=== PATIENT | male | born 1955 | race Caucasian/White ===

== ENCOUNTER 2020-05-01 09:22 | Outpatient (REF) | payer BC, SELFPAY ==
[2020-05-01 11:08] LABS: MANUAL DIFF FLAG NO
[2020-05-01 11:20] LABS: Basophils Absolute Auto 0.1 X10*3/uL (0.0-0.2); Basophils Percent Auto 0.8 % (0-2); Eosinophils Absolute Auto 0.1 X10*3/uL (0.0-0.4); Eosinophils Percent Auto 1.4 % (0-4); Hematocrit 47.2 % (42-52); Imm Gran Abs Auto 0.04 X10*3/uL (0.00-0.03); Imm Gran Pct Auto 0.5 % (0.0-0.4); Lymphocytes Absolute Auto 1.8 X10*3/uL (1.2-4.9); Mean Corpuscular HGB Conc 33.9 g/dl (31.0-36.0); Mean Corpuscular Hemoglobin 29.9 pg (27.0-33.0); Mean Corpuscular Volume 88.2 fL (80-98); Monocytes Absolute Auto 0.5 X10*3/uL (0.1-1.2); Monocytes Percent Auto 5.9 % (2-11); Neutrophils Absolute Auto 5.3 X10*3/uL (2.0-8.3); Neutrophils Percent Auto 68.4 % (45-73); Platelet Count 233 X10*3/uL (160-400); Red Blood Count 5.35 X10*6/uL (4.60-5.80); Red Cell Distribution Width 12.2 % (11.0-16.0); White Blood Count 7.7 X10*3/uL (4.8-10.8)
[2020-05-01 11:48] LABS: Alanine Aminotransferase 48 U/L (0-40); Albumin Level 4.7 g/dL (3.5-5.0); Alkaline Phosphatase 78 U/L (39-117); Anion Gap 17 (12-20); Aspartate Amino Transferase 26 U/L (5-37); Bilirubin Total 1.1 mg/dL (0.0-1.0); Blood Urea Nitrogen 22 mg/dL (9-16); Calcium 9.3 mg/dL (8.4-10.2); Carbon Dioxide 26 mmol/L (22-29); Chloride 103 mmol/L (96-108); Cholesterol 206 mg/dL; Estimated Glomerular Filt Rate > 60; Glucose Fasting 97 mg/dL (60-99); HDL Cholesterol 42 mg/dL; LDL Cholesterol Calculated 114 mg/dl; Potassium 4.2 mmol/L (3.3-5.1); Sodium 142 mmol/L (135-145); Total Protein 7.1 g/dL (6.5-8.0); Triglycerides 251 mg/dL
== END 2020-05-01 09:23 | disposition home or self-care (01) ==
LOC: HO.HMGCLDS 09:22
PROVIDERS: PCP Internal Medicine; Visit Provider Nurse Practitioner
DX: I10 Essential (primary) hypertension (principal); E78.1 Pure hyperglyceridemia
CPT/HCPCS: 36415; 80053; 80061; 85025

== ENCOUNTER 2021-04-24 08:02 | Outpatient (REF) | payer BC, SELFPAY ==
[2021-04-24 11:32] LABS: Appearance Urine CLEAR; Color Urine YELLOW; Glucose Urine UA NEG (NEG); Leukocyte Esterase Urine NEG (NEG); Nitrite Urine NEG (NEG); Specific Gravity - Urine 1.025 (1.005-1.025); Urine Blood NEG (NEG); Urine Ketones NEG (NEG); Urine Protein NEG (NEG-TRACE)
[2021-04-24 11:52] LABS: Alanine Aminotransferase 65 U/L (0-40); Albumin Level 4.5 g/dL (3.5-5.0); Alkaline Phosphatase 74 U/L (39-117); Anion Gap 15 (12-20); Aspartate Amino Transferase 32 U/L (5-37); Bilirubin Total 1.2 mg/dL (0.0-1.0); Blood Urea Nitrogen 17 mg/dL (9-16); Calcium 9.6 mg/dL (8.4-10.2); Carbon Dioxide 27 mmol/L (22-29); Chloride 103 mmol/L (96-108); Cholesterol 205 mg/dL; Estimated Glomerular Filt Rate > 60; Glucose Fasting 120 mg/dL (60-99); HDL Cholesterol 38 mg/dL; LDL Cholesterol Calculated 139 mg/dl; Potassium 4.7 mmol/L (3.3-5.1); Sodium 140 mmol/L (135-145); Total Protein 7.1 g/dL (6.5-8.0); Triglycerides 143 mg/dL
[2021-04-24 12:10] LABS: Creatinine Urine 199.44 mg/dL; Microalbum/Creatinine Ratio Ur 5.5 ug/mg cr
[2021-04-24 12:15] LABS: TSH reflex Free T4 1.37 uIU/mL (0.32-4.0)
[2021-04-24 12:19] LABS: Prostate Specific Antigen Scr 2.95 ng/mL (<0.05-4.0)
== END 2021-04-24 08:03 | disposition home or self-care (01) ==
LOC: HO.HMGCLDS 08:02
PROVIDERS: PCP Family Medicine; Visit Provider Family Medicine
DX: Z00.00 Encounter for general adult medical examination without abnormal findings (principal); I10 Essential (primary) hypertension; Z12.5 Encounter for screening for malignant neoplasm of prostate
CPT/HCPCS: 36415; 80053; 80061; 81003; 82043; 84153; 84443

== ENCOUNTER 2021-05-14 12:50 | Outpatient (REF) | payer BC, SELFPAY ==
[2021-05-14 13:35] LABS: MANUAL DIFF FLAG NO
[2021-05-14 13:40] LABS: Basophils Absolute Auto 0.1 X10*3/uL (0.0-0.2); Basophils Percent Auto 0.7 % (0-2); Eosinophils Absolute Auto 0.2 X10*3/uL (0.0-0.4); Eosinophils Percent Auto 2.4 % (0-4); Hematocrit 47.7 % (42.0-52.0); Hemoglobin 15.4 g/dl (14.0-18.0); Imm Gran Abs Auto 0.04 X10*3/uL (0.00-0.03); Imm Gran Pct Auto 0.5 % (0.0-0.4); Lymphocytes Absolute Auto 1.7 X10*3/uL (1.2-4.9); Lymphocytes Percent Auto 20.7 % (20-40); Mean Corpuscular HGB Conc 32.3 g/dl (31.0-36.0); Mean Corpuscular Hemoglobin 29.2 pg (27.0-33.0); Mean Corpuscular Volume 90.3 fL (80.0-98.0); Mean Platelet Volume 9.7 fL (9.4-12.4); Monocytes Absolute Auto 0.6 X10*3/uL (0.1-1.2); Monocytes Percent Auto 7.4 % (2-11); Neutrophils Absolute Auto 5.7 x10*3/uL (2.0-8.3); Neutrophils Percent Auto 68.3 % (45-73); Platelet Count 280 X10*3/uL (160-400); Red Blood Count 5.28 X10*6/uL (4.60-5.80); Red Cell Distribution Width 11.9 % (11.0-16.0); White Blood Count 8.4 X10*3/uL (4.8-10.8)
[2021-05-14 14:19] LABS: Uric Acid 9.2 mg/dL (3.4-7.0)
== END 2021-05-14 12:51 | disposition home or self-care (01) ==
LOC: HO.WFDLDS 12:50
PROVIDERS: Visit Provider Family Medicine
DX: Z00.00 Encounter for general adult medical examination without abnormal findings (principal); M10.9 Gout, unspecified
CPT/HCPCS: 36415; 84550; 85025

== ENCOUNTER 2021-06-02 07:37 | Outpatient (REF) | payer BC, SELFPAY ==
[2021-06-02 12:09] LABS: Alanine Aminotransferase 51 U/L (0-40); Albumin Level 4.1 g/dL (3.5-5.0); Alkaline Phosphatase 69 U/L (39-117); Aspartate Amino Transferase 24 U/L (5-37); Bilirubin Direct 0.3 mg/dL (0.0-0.5); Bilirubin Total 0.8 mg/dL (0.0-1.0); Total Protein 6.5 g/dL (6.5-8.0); Uric Acid 6.4 mg/dL (3.4-7.0)
== END 2021-06-02 07:38 | disposition home or self-care (01) ==
LOC: HO.HMGCLDS 07:37
PROVIDERS: Visit Provider Family Medicine
DX: M10.9 Gout, unspecified (principal)
CPT/HCPCS: 36415; 80076; 84550

== ENCOUNTER 2021-12-03 09:56 | Outpatient (REF) | payer MEDICARE, SELFPAY ==
[2021-12-03 14:14] LABS: Alanine Aminotransferase 40 U/L (0-40); Albumin Level 4.8 g/dL (3.5-5.0); Alkaline Phosphatase 73 U/L (39-117); Anion Gap 16 (12-20); Aspartate Amino Transferase 23 U/L (5-37); Bilirubin Total 1.1 mg/dL (0.0-1.0); Blood Urea Nitrogen 23 mg/dL (9-16); Carbon Dioxide 24 mmol/L (22-29); Chloride 102 mmol/L (96-108); Estimated Glomerular Filt Rate > 60; Glucose Random 102 mg/dL (60-115); Potassium 4.4 mmol/L (3.3-5.1); Sodium 138 mmol/L (135-145); Total Protein 7.4 g/dL (6.5-8.0); Uric Acid 6.9 mg/dL (3.4-7.0)
== END 2021-12-03 09:57 | disposition home or self-care (01) ==
LOC: HO.WFDLDS 09:56
PROVIDERS: Visit Provider Family Medicine
DX: M10.9 Gout, unspecified (principal); R74.8 Abnormal levels of other serum enzymes
CPT/HCPCS: 36415; 80053; 84550

== ENCOUNTER → 2022-01-27 08:39 | Outpatient (BNVA) | payer MEDICARE, SELFPAY | PROVIDERS: PCP Family Medicine; Visit Provider Student in an Organized Health Care Education/Training Program | DX: M1A.09X0 Idiopathic chronic gout, multiple sites, without tophus (tophi) (principal) | CPT/HCPCS: 99202 ==

== ENCOUNTER 2022-04-08 08:15 | Outpatient (REF) | payer MEDICARE, SELFPAY ==
--- NOTE | ~2022-04-08 | US_ITS ---
EXAMINATION: US RETROPERITONEAL LIMITED (RENAL ONLY) CLINICAL INFORMATION: Essential primary hypertension. COMPARISON: None TECHNIQUE: Routine grayscale imaging of kidneys followed by retroperitoneal ultrasound is performed. FINDINGS: RIGHT KIDNEY: 12.1 x 4.6 x 5.3 cm (SAG x AP x TRV). The kidney is normal in size, contour, and echogenicity. Renal cortical thickness is normal. No calculi or focal parenchymal lesions. No hydronephrosis. LEFT KIDNEY: 13.0 x 6.2 x 6.3 cm (SAG x AP x TRV). The kidney is normal in size, contour, and echogenicity. Renal cortical thickness is normal. No calculi or focal parenchymal lesions. No hydronephrosis. On renal Doppler exam, RIGHT KIDNEY: Renal artery velocity proximal segment measures 142 cm/s, midsegment measures 160 cm/s and distal segment measures 88.6 cm/s. Average segmental resistive index measures 0.77. RAR cannot be obtained due to aortic peak systolic velocity measures greater than 100 cm/s. LEFT KIDNEY: Renal artery velocity proximal segment measures 17.1 cm/s, midsegment measures 121 cm/s and distal segment measures 84.3 cm/s. Average resistive index measures 0.73. RAR cannot be calculated due to peak aortic systolic velocity greater than 100 cm/s. US/US renal doppler IMPRESSION: Normal renal ultrasound. Normal renal Doppler ultrasound. Elevated peak aortic velocity greater then 100 cm/s likely secondary to atherosclerosis.
--- NOTE | ~2022-04-08 | US_ITS ---
EXAMINATION: US RETROPERITONEAL LIMITED (RENAL ONLY) CLINICAL INFORMATION: Essential primary hypertension. COMPARISON: None TECHNIQUE: Routine grayscale imaging of kidneys followed by retroperitoneal ultrasound is performed. FINDINGS: RIGHT KIDNEY: 12.1 x 4.6 x 5.3 cm (SAG x AP x TRV). The kidney is normal in size, contour, and echogenicity. Renal cortical thickness is normal. No calculi or focal parenchymal lesions. No hydronephrosis. LEFT KIDNEY: 13.0 x 6.2 x 6.3 cm (SAG x AP x TRV). The kidney is normal in size, contour, and echogenicity. Renal cortical thickness is normal. No calculi or focal parenchymal lesions. No hydronephrosis. On renal Doppler exam, RIGHT KIDNEY: Renal artery velocity proximal segment measures 142 cm/s, midsegment measures 160 cm/s and distal segment measures 88.6 cm/s. Average segmental resistive index measures 0.77. RAR cannot be obtained due to aortic peak systolic velocity measures greater than 100 cm/s. LEFT KIDNEY: Renal artery velocity proximal segment measures 17.1 cm/s, midsegment measures 121 cm/s and distal segment measures 84.3 cm/s. Average resistive index measures 0.73. RAR cannot be calculated due to peak aortic systolic velocity greater than 100 cm/s. US/US renal BI IMPRESSION: Normal renal ultrasound. Normal renal Doppler ultrasound. Elevated peak aortic velocity greater then 100 cm/s likely secondary to atherosclerosis.
== END 2022-04-08 08:16 | disposition home or self-care (01) ==
LOC: HO.HMGCX 08:15
PROVIDERS: PCP Family Medicine; Visit Provider Family Medicine
DX: I10 Essential (primary) hypertension (principal)
CPT/HCPCS: 76775; 93975

== ENCOUNTER 2022-04-16 07:39 | Outpatient (REF) | payer MEDICARE, SELFPAY ==
[2022-04-16 11:25] LABS: MANUAL DIFF FLAG NO
[2022-04-16 11:34] LABS: Appearance Urine Clear; Color Urine Yellow; Glucose Urine UA Negative (Negative); Leukocyte Esterase Urine Negative (Negative); Nitrite Urine Negative (Negative); PH 5.5 (5.0-9.0); Specific Gravity - Urine 1.025 (1.005-1.025); Urine Blood Negative (Negative); Urine Ketones Negative (Negative); Urine Protein Negative (Neg-Trace)
[2022-04-16 11:58] LABS: Basophils Absolute Auto 0.1 X10*3/uL (0.0-0.2); Basophils Percent Auto 0.8 % (0-2); Eosinophils Absolute Auto 0.2 X10*3/uL (0.0-0.4); Eosinophils Percent Auto 2.3 % (0-4); Hematocrit 44.7 % (42.0-52.0); Imm Gran Abs Auto 0.03 X10*3/uL (0.00-0.03); Imm Gran Pct Auto 0.4 % (0.0-0.4); Lymphocytes Absolute Auto 2.1 X10*3/uL (1.2-4.9); Lymphocytes Percent Auto 28.2 % (20-40); Mean Corpuscular HGB Conc 33.6 g/dl (31.0-36.0); Mean Corpuscular Hemoglobin 30.9 pg (27.0-33.0); Mean Corpuscular Volume 92.2 fL (80.0-98.0); Monocytes Absolute Auto 0.5 X10*3/uL (0.1-1.2); Monocytes Percent Auto 6.8 % (2-11); Neutrophils Absolute Auto 4.6 x10*3/uL (2.0-8.3); Neutrophils Percent Auto 61.5 % (45-73); Platelet Count 226 X10*3/uL (160-400); Red Blood Count 4.85 X10*6/uL (4.60-5.80); Red Cell Distribution Width 12.8 % (11.0-16.0); White Blood Count 7.5 X10*3/uL (4.8-10.8)
[2022-04-16 12:18] LABS: Uric Acid 6.3 mg/dL (3.4-7.0)
[2022-04-16 12:31] LABS: Erythrocyte Sedimentation Rate 2 MM/HR (0-15)
[2022-04-16 12:50] LABS: Alanine Aminotransferase 51 U/L (0-40); Albumin Level 4.4 g/dL (3.5-5.0); Anion Gap 12 (12-20); Aspartate Amino Transferase 29 U/L (5-37); Bilirubin Total 1.1 mg/dL (0.0-1.0); Blood Urea Nitrogen 21 mg/dL (9-16); C Reactive Protein 0.27 mg/dL (< or = 0.50); Calcium 9.5 mg/dL (8.4-10.2); Carbon Dioxide 29 mmol/L (22-29); Chloride 104 mmol/L (96-108); Estimated Glomerular Filt Rate > 60; Glucose Random 114 mg/dL (60-115); Potassium 4.7 mmol/L (3.3-5.1); Sodium 140 mmol/L (135-145); Total Protein 6.4 g/dL (6.5-8.0)
[2022-04-16 12:51] LABS: Alkaline Phosphatase 62 U/L (39-117); Cholesterol 176 mg/dL; HDL Cholesterol 37 mg/dL; LDL Cholesterol Calculated 109 mg/dl; Prostate Specific Antigen Scr 2.88 ng/mL (<0.05-4.0); TSH reflex Free T4 1.39 uIU/mL (0.32-4.0); Triglycerides 151 mg/dL
[2022-04-16 12:52] LABS: Creatinine Urine 174.01 mg/dL; Microalbum/Creatinine Ratio Ur 9.7 ug/mg cr
== END 2022-04-16 07:40 | disposition home or self-care (01) ==
LOC: HO.HMGCLDS 07:39
PROVIDERS: Absent Provider Student in an Organized Health Care Education/Training Program; PCP Family Medicine; Visit Provider Family Medicine
DX: Z00.00 Encounter for general adult medical examination without abnormal findings (principal); I10 Essential (primary) hypertension; M10.9 Gout, unspecified; Z12.5 Encounter for screening for malignant neoplasm of prostate
CPT/HCPCS: 36415; 80053; 80061; 81003; 82043; 84153; 84443; 84550; 85025; 85652; 86140

== ENCOUNTER 2022-04-29 08:03 | Outpatient (REF) | payer MEDICARE, SELFPAY ==
--- NOTE | ~2022-04-29 | XR_ITS ---
EXAMINATION: XR FOOT, RIGHT XR FOOT, LEFT CLINICAL INFORMATION: Gout versus psoriatic arthritis versus osteoarthritis. COMPARISON: Report from right foot radiographs dated 10/04/2005. TECHNIQUE: PA, oblique, and lateral views of the right and left foot. FINDINGS: Right Foot: Mild 1st metatarsophalangeal and hallux sesamoid joint space narrowing with small marginal osteophytes. Mild subchondral cystic change. No significant periarticular erosion. Mild adjacent soft tissue swelling. Tiny soft tissue calcification along the medial aspect of the joint space measuring up to 0.1 cm. No fracture or dislocation. Plantar and dorsal calcaneal spurs. Left Foot: Severe 1st metatarsophalangeal and hallux sesamoid joint space narrowing with bony remodeling, subchondral cystic change, and marginal osteophytes. No significant periarticular erosion. No acute fracture or dislocation. Plantar and dorsal calcaneal spurs. 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 No significant periarticular erosion. Tiny adjacent soft tissue calcification. Gout arthropathy is thought less likely, however, cannot be entirely excluded. LEFT FOOT: Severe 1st metatarsophalangeal and hallux sesamoid degenerative arthritis with bony remodeling. Plantar and dorsal calcaneal spurs. No significant periarticular erosion or soft tissue calcification to suggest gout arthropathy.
--- NOTE | ~2022-04-29 | XR_ITS ---
EXAMINATION: XR FOOT, RIGHT XR FOOT, LEFT CLINICAL INFORMATION: Gout versus psoriatic arthritis versus osteoarthritis. COMPARISON: Report from right foot radiographs dated 10/04/2005. TECHNIQUE: PA, oblique, and lateral views of the right and left foot. FINDINGS: Right Foot: Mild 1st metatarsophalangeal and hallux sesamoid joint space narrowing with small marginal osteophytes. Mild subchondral cystic change. No significant periarticular erosion. Mild adjacent soft tissue swelling. Tiny soft tissue calcification along the medial aspect of the joint space measuring up to 0.1 cm. No fracture or dislocation. Plantar and dorsal calcaneal spurs. Left Foot: Severe 1st metatarsophalangeal and hallux sesamoid joint space narrowing with bony remodeling, subchondral cystic change, and marginal osteophytes. No significant periarticular erosion. No acute fracture or dislocation. Plantar and dorsal calcaneal spurs. 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 No significant periarticular erosion. Tiny adjacent soft tissue calcification. Gout arthropathy is thought less likely, however, cannot be entirely excluded. LEFT FOOT: Severe 1st metatarsophalangeal and hallux sesamoid degenerative arthritis with bony remodeling. Plantar and dorsal calcaneal spurs. No significant periarticular erosion or soft tissue calcification to suggest gout arthropathy.
== END 2022-04-29 08:04 | disposition home or self-care (01) ==
LOC: HO.XRAY 08:03
PROVIDERS: PCP Family Medicine; Visit Provider Student in an Organized Health Care Education/Training Program
DX: M1A.09X0 Idiopathic chronic gout, multiple sites, without tophus (tophi) (principal)
CPT/HCPCS: 73630; 99212

== ENCOUNTER 2022-05-07 06:47 | Day surgery (SDC) | payer MEDICARE, SELFPAY ==
--- NOTE | 2022-05-06 09:24 | HO.ANESPROP2 ---
HPI - Anesthesia Eval Consult details Narrative: 66yo M for Colonoscopy PMFSH Active Problems Active Problems: All Active Problems (Updated 05/06/22 @ 07:38 by Zoraida Lange RN) Laboratory examination ordered as part of a routine general medical examination (Acute) Essential hypertension (Acute) Anxiety (Acute) Neuropathy (Acute) Scoliosis (Acute) Adult general medical exam (Acute) Hypercholesterolemia (Acute) Low HDL (under 40) (Acute) Screening for prostate cancer (Acute) Screening for colon cancer (Acute) Gout (Acute) Immunization counseling (Acute) Elevated liver enzymes (Acute) Elevated fasting glucose (Acute) Sinus congestion (Acute) Polyarthralgia (Acute) Resistant hypertension (Acute) Past Medical History Medical History Anxiety Gout History of neuropathy History of spinal stenosis Hx of sleep apnea Hypertension Kidney stones Psoriasis Surgical History Surgical History H/O ligation of vein History of dental surgery History of penile implant Hx of basal cell carcinoma excision Hx of colonoscopy Hx of lithotripsy Previous back surgery Social History Social History Housing: House Patient Tobacco Use Status: Former Tobacco user Quit Date: 1996 Tobacco use type: Cigarette e-Cigarette/Vaping Use: Never Used Second Hand Smoke Exposure: No Use of substances other than those prescribed or required for medical reasons: No Are you DNR?: No Advance Directives: No Advance Directives Information Provided: Yes service: Yes Current occupational status: employed Current occupational exposures/hazards: No Cognitive needs: No Hearing needs: No Vision needs: No Meds Allergies Allergy/AdvReac Type Severity Reaction Status Date / Time No Known Allergies Allergy Mild NKA Verified 05/07/22 06:59 Home Medications Medication Instructions Recorded Confirmed Last Taken Type omega 0-xda-qap-other omega 3s-D3 ml PO 03/19/21 04/29/22 04/06/22 History 2,200 mg-1,000 unit/5 mL oral liquid multivitamin 1 tab PO DAILY 05/06/22 05/06/22 Unknown History Exam Exam Date and Time: May 06, 2022 0924 Pertinent Lab Results Pertinent Lab Results: Laboratory Tests 04/16/22 04/16/22 07:51 07:51 WBC 7.5 Hgb 15.0 Hct 44.7 Plt Count 226 Sodium 140 Potassium 4.7 Chloride 104 Carbon Dioxide 29 BUN 21 H Creatinine 1.10 Assessment and Plan Assessment Anesthesia Assessment: Chart Reviewed
[2022-05-07 07:01] VITALS: BMI 37.8
[2022-05-07 07:25] VITALS: BP 129/72; PULSE 87; RESP 16; TEMP 36.6; O2SAT 97
[2022-05-07] MEDS: Lactated Ringers 1,000 ML 100 ML IVCONT (07:29)
--- NOTE | 2022-05-07 08:25 | MHC.SHP ---
Pre-Procedural Eval Section A Date of Service: 05/07/22 Section B Chief Complaint: screening Details of Present Illness: see H&P no changes Relevant Family History (Specify if Yes): No Relevant Social History: None Present Medications: see Short Stay Collaborative assessment Medical History: No relevant PMH History of Previous Operations: No relevant previous surgery Allergies: Allergies Allergy/AdvReac Type Severity Reaction Status Date / Time No Known Allergies Allergy Mild NKA Verified 05/07/22 06:59 Review of Systems Sugical H&P ROS: Negative: Constitution, Cardiovascular, Respiratory, Neurological, Psychiatric, Hem-Onc, Allergic/Immunologic, Gastrointestinal, Genitourinary, Musculoskeletal, Integumentary, Endocrine and Eyes/Ears/Nose/Throat Exam Surgical H&P Exam: Normal: HEENT, Normal: Heart, Normal: Lungs, Normal: Extremities, Normal: Abdomen, Normal: Skin and Normal: Neurological Plan Diagnosis/Plan: Unchanged I have reviewed the history and physical and performed a pertinent physical examination on my patient. No changes have occurred unless specified. Time Spent With Patient Time: Total time managing care of this patient today ____ minutes.
--- NOTE | 2022-05-07 09:10 | P.CONAN_ITS ---
[facility] Active Problems Active Problems: All Active Problems (Updated 05/07/22 @ 07:00 by Zoraida Lange RN) Laboratory examination ordered as part of a routine general medical examination (Acute) Essential hypertension (Acute) Anxiety (Acute) Neuropathy (Acute) Scoliosis (Acute) Adult general medical exam (Acute) Hypercholesterolemia (Acute) Low HDL (under 40) (Acute) Screening for prostate cancer (Acute) Screening for colon cancer (Acute) Gout (Acute) Immunization counseling (Acute) Elevated liver enzymes (Acute) Elevated fasting glucose (Acute) Sinus congestion (Acute) Polyarthralgia (Acute) Resistant hypertension (Acute) Past Medical History Medical History Anxiety Gout History of neuropathy History of spinal stenosis Hx of sleep apnea Hypertension Kidney stones Psoriasis Surgical History Surgical History H/O ligation of vein History of dental surgery History of penile implant Hx of basal cell carcinoma excision Hx of colonoscopy Hx of lithotripsy Previous back surgery History of Problems with Anesthesia: No Social History Social History Housing: House Patient Tobacco Use Status: Former Tobacco user Quit Date: 1996 Tobacco use type: Cigarette e-Cigarette/Vaping Use: Never Used Second Hand Smoke Exposure: No Use of substances other than those prescribed or required for medical reasons: No Are you DNR?: No Advance Directives: No Advance Directives Information Provided: Yes service: Yes Current occupational status: employed Current occupational exposures/hazards: No Cognitive needs: No Hearing needs: No Vision needs: No Meds Allergies Allergy/AdvReac Type Severity Reaction Status Date / Time No Known Allergies Allergy Mild NKA Verified 05/07/22 06:59 Active Medications: Current Medications Lactated Ringer's (Lr) 1,000 mls @ 100 mls/hr IVCONT .Q10H AISHWARYA Last Admin: 05/07/22 07:29 Dose: 100 mls/hr Home Medications Medication Instructions Recorded Confirmed Last Taken Type omega 8-dak-fyl-other omega 3s-D3 ml PO 03/19/21 04/29/22 04/06/22 History 2,200 mg-1,000 unit/5 mL oral liquid multivitamin 1 tab PO DAILY 05/06/22 05/06/22 Unknown History Exam Exam Date and Time: May 07, 2022 0910 Height,Weight and Vital Signs: Height 6 ft 2 in Weight 133.81 kg Last Vital Signs Temp 97.8 F 05/07/22 07:25 Pulse 87 05/07/22 07:25 Resp 16 05/07/22 07:25 BP 129/72 05/07/22 07:25 Pulse Ox 97 05/07/22 07:25 O2 Del Method Room Air 05/07/22 07:25 Airway Mallampati Class: III TM Dist: >3cm Neck ROM: Full Heart: RRR Lungs: CTA Assessment and Plan Final Anesthetic Review History of Problems with Anesthesia: No NPO: Yes ASA Class: III Final Preanesthetic Review: Meds/Allgs Chart Reviewed, Consent Obtained/Reviewed and Anes Risks/Benef Reviewed Patient Risk: Low Procedure Risk: Low Anesthetic Plan Anesthetic Plan: MAC: Disposition: Standard PACU
[2022-05-07 09:13] VITALS: BP 96/53; PULSE 84; RESP 20; TEMP 36.2; O2SAT 95
--- NOTE | 2022-05-07 09:19 | P.BOP_ITS ---
Brief Operative Note Date of Service: 05/07/22 Pre-op diagnosis: screening Post-op diagnosis: same Procedure: colonoscopy Surgeon: Vipul Magdaleno Anesthesia: MAC Was an Sanitation Worker Hosing Machinery used for this Procedure?: No Estimated blood loss (mL): 0 Pathology: other Condition: stable Disposition: PACU
--- NOTE | 2022-05-07 09:24 | HO.POSTANES ---
Post Anesthesia Evaluation Post Anesthesia Evaluation Vital Signs: Vital Signs Temp Pulse Resp BP Pulse Ox O2 Del Method 05/07/22 09:13 97.2 F 84 20 96/53 L 95 Room Air 05/07/22 07:25 97.8 F 87 16 129/72 97 Room Air Anesthesia: Monitored Mental Status: Awake Pain Control: Satisfactory Nausea/Vomiting: None Hydration: Adequate Anesthesia-Related Issues: No Anes. Related Issues
[2022-05-07 09:28] VITALS: BP 101/57; PULSE 76; RESP 16; O2SAT 99
[2022-05-07 09:41] VITALS: BP 110/72; PULSE 73; RESP 16; TEMP 36.3; O2SAT 99
--- NOTE | 2022-05-12 08:55 | OP_ITS ---
DATE OF SERVICE: 05/07/2022 SURGEON: Vipul Magdaleno MD INDICATIONS: Colon cancer screening and prior history of colon polyps. PREOPERATIVE DIAGNOSIS: POSTOPERATIVE DIAGNOSIS: PROCEDURE PERFORMED: Colonoscopy to the cecum with snare polypectomy. ESTIMATED BLOOD LOSS: COMPLICATIONS: ANESTHESIA: Monitored anesthesia care. ASSISTANTS: SPECIMENS: DESCRIPTION OF PROCEDURE: A history and physical performed. The risks and benefits of the procedure were explained to the patient. Informed consent was obtained. The patient was placed in the left lateral decubitus position. A digital rectal exam was performed and was found to be normal. The Olympus pediatric videocolonoscope was introduced into the rectum and advanced to the cecum without difficulty. The cecum was identified by transillumination, palpation, and identification of the ileocecal valve. Examination was performed. The scope was removed. He tolerated the procedure well and returned to recovery area in stable condition. FINDINGS: The visualized colonic mucosa was normal. The terminal ileum was not examined. The quality of the prep was good. A single polyp measuring approximately 8 mm was removed with a hot snare. The polyp was located at 65 cm from the anal verge and recovered via suction. No other polyps were identified. Retroflexed examination showed some small internal hemorrhoids. IMPRESSION: Colon polyp. RECOMMENDATION: Follow up with the biopsy results. MD ASHLEY Michael/AMADOUL / [id number]
== END 2022-05-07 10:14 | disposition home or self-care (01) ==
PROVIDERS: PCP Family Medicine; Visit Provider Internal Medicine Gastroenterology
PROC: 0DJD8ZZ Inspection of Lower Intestinal Tract, Via Natural or Artificial Opening Endoscopic (ICD-10-PCS; CPT 45378; principal; 2022-05-07 08:10)
DX: Z12.11 Encounter for screening for malignant neoplasm of colon (principal); Z86.010 Personal history of colon polyps; D12.4 Benign neoplasm of descending colon; K64.8 Other hemorrhoids; I10 Essential (primary) hypertension; G47.33 Obstructive sleep apnea (adult) (pediatric); G62.9 Polyneuropathy, unspecified; M10.9 Gout, unspecified; F41.1 Generalized anxiety disorder; E78.00 Pure hypercholesterolemia, unspecified; Z79.51 Long term (current) use of inhaled steroids; Z79.899 Other long term (current) drug therapy; Z80.52 Family history of malignant neoplasm of bladder; Z96.9 Presence of functional implant, unspecified; Z85.828 Personal history of other malignant neoplasm of skin; Z87.891 Personal history of nicotine dependence
CPT/HCPCS: 45385; 88305

== ENCOUNTER 2022-09-08 07:09 | Outpatient (REF) | payer MEDICARE, SELFPAY ==
[2022-09-08 12:13] LABS: Alanine Aminotransferase 32 U/L (0-40); Albumin Level 4.6 g/dL (3.5-5.0); Alkaline Phosphatase 69 U/L (39-117); Anion Gap 16 (12-20); Aspartate Amino Transferase 21 U/L (5-37); Blood Urea Nitrogen 23 mg/dL (9-16); Carbon Dioxide 23 mmol/L (22-29); Chloride 106 mmol/L (96-108); Cholesterol 138 mg/dL; Estimated Glomerular Filt Rate > 60; Glucose Fasting 123 mg/dL (60-99); HDL Cholesterol 35 mg/dL; LDL Cholesterol Calculated 76 mg/dl; Sodium 140 mmol/L (135-145); Total Protein 7.2 g/dL (6.5-8.0); Triglycerides 137 mg/dL
== END 2022-09-08 07:10 | disposition home or self-care (01) ==
LOC: HO.HMGCLDS 07:09
PROVIDERS: Absent Provider Student in an Organized Health Care Education/Training Program; PCP Family Medicine; Visit Provider Family Medicine
DX: Z00.00 Encounter for general adult medical examination without abnormal findings (principal); I70.90 Unspecified atherosclerosis
CPT/HCPCS: 36415; 80053; 80061

== ENCOUNTER 2022-09-16 14:04 | Outpatient (AMB) | payer MEDICARE, SELFPAY ==
--- NOTE | 2022-09-16 14:09 | A.OFFPC_ITS ---
Vital Signs 09/16/22 14:10 Height 6 ft 3 in Weight 295 lb BMI 36.9 BP 142/82 H Blood Pressure Location Lt brachial Position Sitting Respiration 13 Pulse 114 H Pulse Source Pulse Oximeter Temp 97.8 F Temp Source Temporal Artery Scan Pulse Oximetry (%) 97 Oxygen Delivery Method Room Air Intake Visit Reasons: f/u htn, hypercholesterolemia, elev fast glucose Intake Note: Patient is here to discuss recent labs drawn on 09/08/2022 along with hypertension. Patient is concerned for the lorazepam medication as he has been off of this medication for about 2-3 months now due to inconsistent filling. Patient reports he has called the office about this and never recieved a call back. Please see workload message in open status. 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 Accompanied by: Self / Same As Patient Allergies No Known Allergies Allergy (Mild, Verified 09/16/22 14:10) NKA Tobacco use date assessed: 03/04/22 Fall risk assessment: No Falls in past year Last assessed Fall Risk: 09/16/22 Dental Screening Dental Screen Date: 09/16/22 Did you have a dental visit in the last 12 months?: Yes Did you have a dental problem in the last 6 months where you did not have access to dental care?: No Was dental information given to patient?: Patient has dentist HPI f/u htn, hypercholesterolemia, elev fast glucose HPI Details 67 y/o male presents to f/u hypertension, hypercholesterolemia and elev. fasting glucose. Blood pressure today is 142/82. He is on lisinopril-HCTZ 20-12.5mg 2 tabs daily, metoprolol 50mg daily, spirinolactone 25 mg and amlodipine 10mg daily. Labs were drawn 09/08/22. Reviewed labs with pt. Elevated fasting glucose of 123. A1c today 09/16/22 is 4.8%. Triglycerides 137. TC 138. LDL 76. HDL low at 35. He is on artovastatin 10mg. [facility] Medical History Anxiety Gout History of neuropathy History of spinal stenosis Hx of sleep apnea Hypertension Kidney stones Psoriasis Surgical History H/O ligation of vein History of dental surgery History of penile implant Hx of basal cell carcinoma excision Hx of colonoscopy Hx of lithotripsy Previous back surgery Social History Housing: House Patient Tobacco Use Status: Former Tobacco user Quit Date: 1996 Tobacco use type: Cigarette e-Cigarette/Vaping Use: Never Used Second Hand Smoke Exposure: No service: Yes Current occupational status: employed Current occupational exposures/hazards: No Cognitive needs: No Hearing needs: No Vision needs: No Questionnaire Thrive Questionnaire Date Thrive assessed: 03/19/21 BLANCO-7 AMB Questionnaire BLANCO-7 Date BLANCO - 7 assessed: 03/19/21 Source: Developed by Drs. Frankie Ashford, Corinne Oden, Phu Mitchell and colleagues, with an educational jo from [employer]. Review of Systems Const Denies chills, Denies fatigue, Denies fever(s), Denies headache(s) and Denies weakness ENT Denies dizziness and Denies headache(s) Card Denies chest pain, Denies lightheadedness, Denies dyspnea and Denies other (Palpitations) Resp Denies cough, Denies dyspnea, Denies wheezing and Denies other ( shortness of breath) Musc Denies numbness and Denies tingling Neuro Denies dizziness, Denies headache(s), Denies numbness, Denies tingling, Denies paresthesias and Denies weakness Psych Denies anxiety and Denies depression Endo Denies fatigue Aller/Immun Denies wheezing Physical exam (Primary Care) Vital Signs: Last Vital Signs Temp 97.8 F 09/16/22 14:10 Pulse 114 H 09/16/22 14:10 Resp 13 09/16/22 14:10 BP 142/82 H 09/16/22 14:10 Pulse Ox 97 09/16/22 14:10 Oxygen Delivery Method Room Air 09/16/22 14:10 BMI result Body Mass Index 36.9 Tobacco/Smoking Status: Tobacco use Status Tobacco use date assessed 03/04/22 09/16/22 14:09 Patient Tobacco Use Status Former Tobacco user 09/16/22 14:09 Tobacco use type Cigarette 09/16/22 14:09 e-Cigarette/Vaping Use Never Used 09/16/22 14:09 Thrive Assessment: Date of Thrive Assessment Date Thrive assessed 03/19/21 09/16/22 14:09 Const General: no acute distress and well developed Nutritional Appearance: well nourished Orientation/consciousness: patient oriented x3 HENMT Head: Yes normocephalic and Yes atraumatic Eyes General: appearance normal, both eyes and all related structures Pupils: Equal, round and reactive pupils present EOM: EOMs intact bilaterally Resp Effort & Inspection: normal respiratory effort Auscultation: clear to auscultation bilaterally Cardio Rate: regular rate Rhythm: regular rhythm Heart sounds: S1 normal heart sound present, S2 normal heart sound present, no gallops, no murmurs and no rubs Neuro General: patient oriented x3 and gait normal Cranial nerves: Yes Equal, round and reactive pupils present Psych Affect: normal affect Results AMB Hemoglobin A1c AMB Hemoglobin A1c 4.8 % Last Edit by Jolie Lopez on 09/16/22 15:1 2 Results Reviewed Results Reviewed: Laboratory Last Values Hgb A1c (Clinic) 4.8 % (4.0-6.0) 09/16/22 15:12 Assessment and Plan Assessment & Plan (1) Essential hypertension: Code(s): I10 - Essential (primary) hypertension Plan: Blood pressure is elevated today as is his heart rate and he notes that he has been rather anxious today. Encouraged weight loss, salt avoidance and exercise Continue current medication regimen and we will follow-up at his next visit (2) Elevated fasting glucose: Code(s): R73.01 - Impaired fasting glucose Plan: Elevated fasting blood sugars but his A1c is 5.4% Will continue to follow (3) Atherosclerosis: Code(s): I70.90 - Unspecified atherosclerosis Plan: I have given him a script for atorvastatin 10 mg daily and his LDL cholesterol has improved significantly now at 76 Continue atorvastatin 10 mg daily and work at a diet lower in saturated fats and cholesterol Work at exercise and weight loss HDL is low and I encouraged him to work at increased [place] 3 fatty acids in his diet and increase exercise. (4) Elevated liver enzymes: Code(s): R74.8 - Abnormal levels of other serum enzymes Plan: Liver enzymes back within normal range (5) Anxiety: Code(s): F41.9 - Anxiety disorder, unspecified Plan: Fairly stable but he has been off the medication lately due to difficulty getting the medication. Continue lorazepam He has been having trouble getting lorazepam through [facility] so we are using his local pharmacy and will continue monthly prescriptions. Medications: Changed From atorvastatin 10 mg PO BEDTIME 30 days 30 tabs 3RF To atorvastatin 10 mg PO BEDTIME 90 tabs 3RF 90 days From lorazepam 1 mg PO BEDTIME 30 days PRN 30 tabs 0RF anxiety To lorazepam [facility] verified. Partial refill upon request. 1 mg PO BEDTIME PRN 30 tabs 0RF anxiety 30 days Coding Level of Care Code Est Pt Level 4 (89241) Diagnoses Essential hypertension I10 Elevated fasting glucose R73.01 Atherosclerosis I70.90 Elevated liver enzymes R74.8 Anxiety F41.9
[2022-09-16 14:10] VITALS: BP 142/82; PULSE 114; RESP 13; TEMP 36.6; O2SAT 97; BMI 36.9
== END 2022-09-16 15:23 | disposition home or self-care (01) ==
PROVIDERS: PCP Family Medicine; Visit Provider Family Medicine
DX: I10 Essential (primary) hypertension (principal); F41.9 Anxiety disorder, unspecified; R73.01 Impaired fasting glucose; I70.90 Unspecified atherosclerosis; R74.8 Abnormal levels of other serum enzymes
CPT/HCPCS: 99214

== ENCOUNTER 2022-09-23 11:48 | Outpatient (REF) | payer MEDICARE, SELFPAY ==
[2022-09-23 13:29] LABS: MANUAL DIFF FLAG NO
[2022-09-23 13:52] LABS: Basophils Absolute Auto 0.1 X10*3/uL (0.0-0.2); Basophils Percent Auto 0.8 % (0-2); Eosinophils Absolute Auto 0.1 X10*3/uL (0.0-0.4); Eosinophils Percent Auto 1.4 % (0-4); Hematocrit 43.8 % (42.0-52.0); Imm Gran Abs Auto 0.03 X10*3/uL (0.00-0.03); Imm Gran Pct Auto 0.3 % (0.0-0.4); Lymphocytes Absolute Auto 1.6 X10*3/uL (1.2-4.9); Lymphocytes Percent Auto 18.5 % (20-40); Mean Corpuscular HGB Conc 34.2 g/dl (31.0-36.0); Mean Corpuscular Hemoglobin 31.1 pg (27.0-33.0); Mean Corpuscular Volume 90.9 fL (80.0-98.0); Monocytes Absolute Auto 0.4 X10*3/uL (0.1-1.2); Monocytes Percent Auto 4.8 % (2-11); Neutrophils Absolute Auto 6.4 x10*3/uL (2.0-8.3); Neutrophils Percent Auto 74.2 % (45-73); Platelet Count 218 X10*3/uL (160-400); Red Blood Count 4.82 X10*6/uL (4.60-5.80); Red Cell Distribution Width 12.9 % (11.0-16.0); White Blood Count 8.7 X10*3/uL (4.8-10.8)
[2022-09-23 14:08] LABS: Alanine Aminotransferase 31 U/L (0-40); Albumin Level 4.5 g/dL (3.5-5.0); Alkaline Phosphatase 67 U/L (39-117); Anion Gap 13 (12-20); Aspartate Amino Transferase 22 U/L (5-37); Bilirubin Total 0.9 mg/dL (0.0-1.0); Blood Urea Nitrogen 22 mg/dL (9-16); Calcium 9.6 mg/dL (8.4-10.2); Carbon Dioxide 23 mmol/L (22-29); Chloride 107 mmol/L (96-108); Estimated Glomerular Filt Rate 60; Glucose Random 143 mg/dL (60-115); Potassium 4.3 mmol/L (3.3-5.1); Sodium 139 mmol/L (135-145); Total Protein 6.9 g/dL (6.5-8.0); Uric Acid 4.5 mg/dL (3.4-7.0)
== END 2022-09-23 11:49 | disposition home or self-care (01) ==
LOC: HO.HMGCLDS 11:48
PROVIDERS: PCP Family Medicine; Visit Provider Student in an Organized Health Care Education/Training Program
DX: M10.9 Gout, unspecified (principal)
CPT/HCPCS: 36415; 80053; 84550; 85025

== ENCOUNTER 2022-09-29 11:22 | Outpatient (AMB) | payer MEDICARE, SELFPAY ==
--- NOTE | 2022-09-29 11:34 | MHC.OFFVIS ---
Intake Vital Signs 09/29/22 11:37 Height 6 ft 3 in BMI Reason not done Patient refused/unable BP 138/66 Blood Pressure Location Rt brachial Position Sitting Pulse 72 Pulse Source Pulse Oximeter Temp 97.7 F Temp Source Skin Pulse Oximetry (%) 96 Comment states weight is 295lbs Intake Visit Reasons: gout Intake Note: Pt seen today for gout follow up Reports he started colchicine last week for flare up, still currently taking it. Would like to discuss cochicine Operations Superintendent Required: No Accompanied by: Self / Same As Patient Allergies No Known Allergies Allergy (Mild, Verified 09/29/22 11:44) NKA Medication List - Last Reconciled 09/29/22 by Reyes Jonse MD allopurinol 400 mg PO BID amlodipine 10 mg PO DAILY 90 days atorvastatin 10 mg PO BEDTIME 90 days fluticasone propionate 50 mcg/actuation 1 spray intranasal BID lisinopril-hydrochlorothiazide 20-12.5 mg 2 tabs PO DAILY 90 days lorazepam 1 mg PO BEDTIME PRN 30 days metoprolol succinate ER 50 mg (2 x 25 mg) PO DAILY 90 days spironolactone 25 mg PO DAILY 90 days HPI HPI Comments History of Present Illness Details 67-year-old male with gout presents for follow-up. Patient started to have a gout flare 2 weeks ago affecting his right 3rd and 4th toes associated with swelling. He took colchicine 2 tabs daily for 2 days and has been taking colchicine once daily since then with almost complete resolution of attack. He stated that after last visit with me in April of 2022 he slowly tapered himself off of colchicine. He was not taking colchicine since May of 2022 and was doing well without gout flares until 2 weeks ago. Continues to get tingling and numbness symptoms in his feet more on the right. Initial history: This is a 66-year-old male with a past medical history of difficult to control hypertension, gout, lumbar spine spinal stenosis s/p lumbar spine surgery, peripheral neuropathy who presents for evaluation of gout. Patient stated he was diagnosed with gout about 20 years ago when he would have attacks of painful red hot swollen toes. His uric acid was elevated and he was diagnosed with gout. He was started on allopurinol and colchicine at that time a however he stated that over the years for unknown reason the colchicine was not renewed. In 2019 patient was admitted a severe UTI related to kidney stones and had lithotripsy. Patient stated that he had neuropathy a few years back and at that time the allopurinol was discontinued however patient had a flare-up in May of 2020, his uric acid was 9.2 and he was restarted on allopurinol. Patient states that he continues to have some mild pain and swelling of his toes. [facility] Medical History Anxiety Gout History of neuropathy History of spinal stenosis Hx of sleep apnea Hypertension Kidney stones Psoriasis Surgical History H/O ligation of vein History of dental surgery History of penile implant Hx of basal cell carcinoma excision Hx of colonoscopy Hx of lithotripsy Previous back surgery Social History Housing: House Patient Tobacco Use Status: Former Tobacco user Quit Date: 1996 Tobacco use type: Cigarette e-Cigarette/Vaping Use: Never Used Second Hand Smoke Exposure: No service: Yes Current occupational status: employed Current occupational exposures/hazards: No Cognitive needs: No Hearing needs: No Vision needs: No Review of Systems Musc Reports arthralgias, Reports joint swelling, Reports numbness and Reports tingling Neuro Reports numbness and Reports tingling Physical Exam Vital Signs: Last Vital Signs Temp 97.7 F 09/29/22 11:37 Pulse 72 09/29/22 11:37 BP 138/66 09/29/22 11:37 Pulse Ox 96 09/29/22 11:37 Const General: cooperative, healthy appearing and comfortable Nutritional Appearance: obese morbidly obese Orientation/consciousness: patient oriented x3 Limitations: no limitations HEENT Head: Yes normocephalic and Yes atraumatic Resp Effort & Inspection: normal respiratory effort and able to speak in complete sentences Neuro General: patient oriented x3 Extrem Other: No active synovitis Normal range of motion of shoulders Normal nailfold capillaroscopy Mildly swollen right 4th toe without tenderness or warmth Assessment & Plan Assessment & Plan (1) Gout: Code(s): M10.9 - Gout, unspecified Qualifiers: Gout site: multiple sites Gout etiology: idiopathic Chronicity: chronic Presence of tophus: without tophus Qualified Code(s): M1A.09X0 - Idiopathic chronic gout, multiple sites, without tophus (tophi) Plan: This is a 67-year-old male with gout diagnosed in his 40s with bilateral painful red swollen toes, elevated uric, history of kidney stone (likely urate stones but not confirmed) who presents for gout management. Patient was doing well without loud flares for about 3 months until 2 weeks ago when he developed a flare affecting his right 3rd and 4th toes which improved with 2 colchicine tabs daily for 2 days followed by colchicine daily for the past 2 weeks. Most recent uric acid level 4.5 which was during a flare. Continue colchicine 0.6 mg daily for 1 month then reduce to 0.6 mg every other day allopurinol to 400 mg daily Continue colchicine 0.6 mg daily Repeat uric acid level before next visit Plan I spent 24 minutes reviewing patient's chart, evaluating patient, ordering diagnostic workup, counseling patient and documenting in the chart Orders: Orders Comprehensive Met. Panel 3 Months M10.9 - Gout, unspecified Uric Acid 3 Months M10.9 - Gout, unspecified Coding Level of Care Code Est Pt Level 4 (48895) Diagnoses Gout M1A.09X0 Gout site: multiple sites Gout etiology: idiopathic Chronicity: chronic Presence of tophus: without tophus
[2022-09-29 11:37] VITALS: BP 138/66; PULSE 72; TEMP 36.5; O2SAT 96
== END 2022-09-29 12:09 | disposition home or self-care (01) ==
PROVIDERS: PCP Family Medicine; Visit Provider Student in an Organized Health Care Education/Training Program
DX: M1A.09X0 Idiopathic chronic gout, multiple sites, without tophus (tophi) (principal)
CPT/HCPCS: 99214

== ENCOUNTER → 2022-09-29 11:22 | Outpatient (BNVA) | payer MEDICARE, SELFPAY | PROVIDERS: PCP Family Medicine; Visit Provider Student in an Organized Health Care Education/Training Program | DX: M1A.09X0 Idiopathic chronic gout, multiple sites, without tophus (tophi) (principal) | CPT/HCPCS: 99212 ==

== ENCOUNTER 2022-12-09 08:23 | Outpatient (REF) | payer MEDICARE, SELFPAY ==
[2022-12-09 11:26] LABS: MANUAL DIFF FLAG NO
[2022-12-09 11:37] LABS: Basophils Absolute Auto 0.1 X10*3/uL (0.0-0.2); Basophils Percent Auto 0.8 % (0-2); Eosinophils Absolute Auto 0.2 X10*3/uL (0.0-0.4); Eosinophils Percent Auto 2.6 % (0-4); Hematocrit 46.8 % (42.0-52.0); Hemoglobin 15.1 g/dl (14.0-18.0); Imm Gran Abs Auto 0.03 X10*3/uL (0.00-0.03); Imm Gran Pct Auto 0.4 % (0.0-0.4); Lymphocytes Absolute Auto 1.5 X10*3/uL (1.2-4.9); Lymphocytes Percent Auto 19.2 % (20-40); Mean Corpuscular HGB Conc 32.3 g/dl (31.0-36.0); Mean Corpuscular Hemoglobin 30.7 pg (27.0-33.0); Mean Corpuscular Volume 95.1 fL (80.0-98.0); Monocytes Absolute Auto 0.5 X10*3/uL (0.1-1.2); Neutrophils Absolute Auto 5.4 x10*3/uL (2.0-8.3); Platelet Count 219 X10*3/uL (160-400); Red Blood Count 4.92 X10*6/uL (4.60-5.80); White Blood Count 7.6 X10*3/uL (4.8-10.8)
[2022-12-09 12:04] LABS: Uric Acid 3.8 mg/dL (3.4-7.0)
[2022-12-09 12:21] LABS: Alanine Aminotransferase 40 U/L (0-40); Albumin Level 4.4 g/dL (3.5-5.0); Alkaline Phosphatase 62 U/L (39-117); Anion Gap 12 (12-20); Aspartate Amino Transferase 27 U/L (5-37); Bilirubin Total 0.8 mg/dL (0.0-1.0); Blood Urea Nitrogen 17 mg/dL (9-16); Calcium 9.8 mg/dL (8.4-10.2); Carbon Dioxide 26 mmol/L (22-29); Chloride 108 mmol/L (96-108); Estimated Glomerular Filt Rate > 60; Glucose Fasting 123 mg/dL (60-99); Glucose Random 123 mg/dL (60-115); Potassium 5.1 mmol/L (3.3-5.1); Sodium 141 mmol/L (135-145); Total Protein 7.1 g/dL (6.5-8.0)
== END 2022-12-09 08:24 | disposition home or self-care (01) ==
LOC: HO.HMGCLDS 08:23
PROVIDERS: Student in an Organized Health Care Education/Training Program; PCP Family Medicine; Visit Provider Family Medicine
DX: Z00.00 Encounter for general adult medical examination without abnormal findings (principal); M10.9 Gout, unspecified
CPT/HCPCS: 36415; 80053; 84550; 85025

== ENCOUNTER 2022-12-16 13:08 | Outpatient (AMB) | payer MEDICARE, SELFPAY ==
--- NOTE | 2022-12-16 13:06 | A.OFFVIS_ITS ---
Intake Intake Visit Reasons: Gout Intake Note: Pt last seen 09/29/22, telehealth today for follow up and test results. Certified Scrum Master Required: No Allergies No Known Allergies Allergy (Mild, Verified 12/16/22 13:09) NKA Medication List - Last Reconciled 12/16/22 by Reyes Jones MD allopurinol 300 mg PO DAILY allopurinol 100 mg PO DAILY amlodipine 10 mg PO DAILY 90 days atorvastatin 10 mg PO BEDTIME 90 days colchicine (gout) 0.6 mg PO DAILY fluticasone propionate 50 mcg/actuation 1 spray intranasal BID lisinopril-hydrochlorothiazide 20-12.5 mg 2 tabs PO DAILY 90 days lorazepam 1 mg PO BEDTIME PRN 30 days metoprolol succinate ER 50 mg (2 x 25 mg) PO DAILY 90 days spironolactone 25 mg PO DAILY 90 days HPI HPI Comments History of Present Illness Details 67-year-old male with gout returns for a tele health phone visit. Patient states that since yesterday he has been having a sore throat. States that he believes he caught it from his granddaughter who had RSV infection. After last visit patient was taking the colchicine daily. Towards the end of October he started having a gout flare-up affecting his right foot and his knees. Dr. Conte prescribed a prednisone tapering course which relieved the attack. Currently he is doing well with no joint pain or swelling. He continues to take the allopurinol 400 mg daily. Initial history: This is a 66-year-old male with a past medical history of difficult to control hypertension, gout, lumbar spine spinal stenosis s/p lumbar spine surgery, peripheral neuropathy who presents for evaluation of gout. Patient stated he was diagnosed with gout about 20 years ago when he would have attacks of painful red hot swollen toes. His uric acid was elevated and he was diagnosed with gout. He was started on allopurinol and colchicine at that time a however he stated that over the years for unknown reason the colchicine was not renewed. In 2018 patient was admitted a severe UTI related to kidney stones and had lithotripsy. Patient stated that he had neuropathy a few years back and at that time the allopurinol was discontinued however patient had a flare-up in May of 2020, his uric acid was 9.2 and he was restarted on allopurinol. Patient states that he continues to have some mild pain and swelling of his toes. [facility] Medical History Anxiety Gout Hx of sleep apnea Psoriasis Hypertension Kidney stones History of spinal stenosis History of neuropathy Surgical History Hx of basal cell carcinoma excision Hx of lithotripsy History of dental surgery Hx of colonoscopy History of penile implant H/O ligation of vein Previous back surgery Social History Housing: House Patient Tobacco Use Status: Former Tobacco user Quit Date: 1996 Tobacco use type: Cigarette e-Cigarette/Vaping Use: Never Used Second Hand Smoke Exposure: No service: Yes Current occupational status: employed Current occupational exposures/hazards: No Cognitive needs: No Hearing needs: No Vision needs: No Review of Systems ENT Reports sore throat Physical Exam Const Other: Tele health phone visit General: cooperative Orientation/consciousness: patient oriented x3 Resp Effort & Inspection: able to speak in complete sentences Neuro General: patient oriented x3 Assessment & Plan Assessment & Plan (1) Gout: Code(s): M10.9 - Gout, unspecified Qualifiers: Gout site: multiple sites Gout etiology: idiopathic Chronicity: chronic Presence of tophus: without tophus Qualified Code(s): M1A.09X0 - Idiopathic chronic gout, multiple sites, without tophus (tophi) Plan: This is a 67-year-old male with gout diagnosed in his 40s with bilateral painful red swollen toes, elevated uric, history of kidney stone (likely urate stones but not confirmed) who presents for tele health follow-up After last visit patient was taking colchicine 0.6 mg daily. He started having a gout flare up towards the end of October with right foot pain and swelling as well as pain in his knees. Attack was treated with a prednisone taper. Most recent uric acid level 3.8 when not in a flare Will increase colchicine to 0.6 mg Twice daily. Advised patient to start using tart pedroza extract. Also squeeze 2 tai on a large glass of water and drink daily Continue allopurinol 400 mg daily Labs before next visit in 3 months Plan I spent 10 minutes on the phone with patient , additional 10 minutes were spent reviewing and documenting in the chart Orders: Orders Complete Blood Count Auto Diff 3 Months M10.9 - Gout, unspecified Uric Acid 3 Months M10.9 - Gout, unspecified Comprehensive Met. Panel 3 Months M10.9 - Gout, unspecified Medications: New colchicine (gout) 0.6 mg PO BID 60 tabs 2RF Telehealth Telehealth Location of provider rendering services: practice address Location of patient: address on file Patient Identification confirmed using: Name, : Yes Telehealth method: voice only Patient verbally consented to treatment: Yes Patient verbally consented to billing insurance company: Yes Patient informed of any privacy concerns related to visit: Yes Coding Level of Care Code Tele Est Pt Level 3 (55720) Diagnoses Idiopathic chronic gout of multiple sites without tophus M1A.09X0 Gout site: multiple sites Gout etiology: idiopathic Chronicity: chronic Presence of tophus: without tophus
== END 2022-12-16 14:09 | disposition home or self-care (01) ==
LOC: HO.RHE 13:08
PROVIDERS: PCP Family Medicine; Visit Provider Student in an Organized Health Care Education/Training Program
DX: M1A.09X0 Idiopathic chronic gout, multiple sites, without tophus (tophi) (principal)
CPT/HCPCS: 99442

== ENCOUNTER → 2022-12-16 13:08 | Outpatient (BNVA) | payer MEDICARE, SELFPAY | PROVIDERS: PCP Family Medicine; Visit Provider Student in an Organized Health Care Education/Training Program ==

== ENCOUNTER 2022-12-24 13:13 | Outpatient (AMB) | payer MEDICARE, SELFPAY ==
[2022-12-24 13:22] VITALS: BP 144/72; PULSE 100; RESP 13; TEMP 36.8; O2SAT 99; BMI 37.2
--- NOTE | 2022-12-24 13:22 | A.OFFPC_ITS ---
Vital Signs 12/24/22 13:22 Height 6 ft 3 in Weight 298 lb BMI 37.2 BP 144/72 H Blood Pressure Location Lt brachial Position Sitting Respiration 13 Pulse 100 Pulse Source Pulse Oximeter Temp 98.2 F Temp Source Temporal Artery Scan Pulse Oximetry (%) 99 Oxygen Delivery Method Room Air Intake Visit Reasons: f/u hypertension and chronic conditions Intake Note: Patient states that his granddaughter tested positive for RSV and he states that symptoms started 2 weeks ago. Patient states it started going away and they spiked again. patient states that his BP spiking may be due to how he feels and body aches hes experiencing. Manager Animation Required: No Accompanied by: Self / Same As Patient Allergies No Known Allergies Allergy (Mild, Verified 12/24/22 13:29) NKA Tobacco use date assessed: 12/24/22 Fall risk assessment: No Falls in past year Last assessed Fall Risk: 12/24/22 Dental Screening Dental Screen Date: 12/24/22 Did you have a dental visit in the last 12 months?: Yes Did you have a dental problem in the last 6 months where you did not have access to dental care?: No Was dental information given to patient?: Patient has dentist HPI f/u hypertension and chronic conditions HPI Details 67 y/o male presents to f/u hypertension and chronic conditions. Labs were drawn 12/09/22. Reviewed labs with pt. Elevated fasting glucose of 123. Last A1c in 09/16/22 was 4.8%. A1c today 12/24/22 is Blood pressure today 144/72. He is on lisinopril-hydrochlorothiazide 20-12.5mg, spironolactone 25mg, amlodipine 10mg and metoprolol 50mg daily. Patient states that his granddaughter tested positive for RSV and he states that symptoms started 2 weeks ago. Patient states it started going away and they spiked again. Patient states that his BP spiking may be due to how he feels and body aches he's experiencing. [facility] Medical History Anxiety Gout Hx of sleep apnea Psoriasis Hypertension Kidney stones History of spinal stenosis History of neuropathy Surgical History Hx of basal cell carcinoma excision Hx of lithotripsy History of dental surgery Hx of colonoscopy History of penile implant H/O ligation of vein Previous back surgery Social History Housing: House Patient Tobacco Use Status: Former Tobacco user Quit Date: 1996 Tobacco use type: Cigarette e-Cigarette/Vaping Use: Never Used Second Hand Smoke Exposure: No service: Yes Current occupational status: retired Current occupational exposures/hazards: No Cognitive needs: No Hearing needs: No Vision needs: No Questionnaire Thrive Questionnaire Date Thrive assessed: 03/19/21 BLANCO-7 AMB Questionnaire BLANCO-7 Date BLANCO - 7 assessed: 03/19/21 Source: Developed by Drs. Frankie Ashford, Corinne Oden, Phu Mitchell and colleagues, with an educational jo from [employer]. Review of Systems Const Denies chills, Denies fatigue, Denies fever(s), Denies headache(s) and Denies weakness ENT Denies dizziness and Denies headache(s) Card Denies chest pain, Denies lightheadedness, Denies dyspnea and Denies other (Palpitations) Resp Denies cough, Denies dyspnea, Denies wheezing and Denies other ( shortness of breath) Musc Denies numbness and Denies tingling Neuro Denies dizziness, Denies headache(s), Denies numbness, Denies tingling, Denies paresthesias and Denies weakness Psych Denies anxiety and Denies depression Endo Denies fatigue Aller/Immun Denies wheezing Physical exam (Primary Care) Vital Signs: Last Vital Signs Temp 98.2 F 12/24/22 13:22 Pulse 100 12/24/22 13:22 Resp 13 12/24/22 13:22 BP 144/72 H 12/24/22 13:22 Pulse Ox 99 12/24/22 13:22 Oxygen Delivery Method Room Air 12/24/22 13:22 BMI result Body Mass Index 37.2 Tobacco/Smoking Status: Tobacco use Status Tobacco use date assessed 12/24/22 12/24/22 13:32 Patient Tobacco Use Status Former Tobacco user 12/24/22 13:32 Tobacco use type Cigarette 12/24/22 13:32 e-Cigarette/Vaping Use Never Used 12/24/22 13:32 Thrive Assessment: Date of Thrive Assessment Date Thrive assessed 03/19/21 12/24/22 13:32 Const General: no acute distress and well developed Nutritional Appearance: well nourished and obese Orientation/consciousness: patient oriented x3 HENMT Head: Yes normocephalic and Yes atraumatic Eyes General: appearance normal, both eyes and all related structures Pupils: Equal, round and reactive pupils present EOM: EOMs intact bilaterally Resp Other: Coarse breath sounds Effort & Inspection: normal respiratory effort Auscultation: clear to auscultation bilaterally Cardio Rate: regular rate Rhythm: regular rhythm Heart sounds: S1 normal heart sound present, S2 normal heart sound present, no gallops, no murmurs and no rubs Neuro General: patient oriented x3 and gait normal Cranial nerves: Yes Equal, round and reactive pupils present Psych Affect: normal affect Assessment and Plan Assessment & Plan (1) Essential hypertension: Code(s): I10 - Essential (primary) hypertension Plan: Blood?pressure?elevated?but?patient?is?ill?today.??Goal?is?less?than?140/90 No?changes?to?his?medication?regimen?today?regarding?bl ood?pressure?and?we?will?follow-up?again?in?a?month (2) Viral illness: Code(s): B34.9 - Viral infection, unspecified Plan: Checking?swab?for?COVID/flu/RSV Treat?symptoms (3) Cough: Code(s): R05.9 - Cough, unspecified Plan: Lungs?coarse?but?otherwise?clear But?has?significant?cough. Will?start?Z-Joce?and?check?chest?x-ray?patient?is?not?getting?better. (4) Elevated fasting glucose: Code(s): R73.01 - Impaired fasting glucose Plan: Will?repeat?fasting?blood?sugar?and?check?A1c?with?next?blood?draw Orders: Orders SARS-CoV2/FLU/RSV Today R05.9 - Cough, unspecified, Z20.822 - Contact with and (suspected) exposure to COVID-19 XR chest 2V Today R05.9 - Cough, unspecified Hemoglobin A1c Today R73.01 - Impaired fasting glucose Comprehensive [place]. Panel Fast Today R73.01 - Impaired fasting glucose, Z00.00 - Encounter for general adult medical examination without abnormal findings Medications: New azithromycin (Zithromax Z-Joce) take 500 mg today (day 1), then 250 mg for 4 days (days 2-5) PO 6 tabs 0RF 5 days Coding Level of Care Code Est Pt Level 4 (77047) Diagnoses Essential hypertension I10 Viral illness B34.9 Cough R05.9 Elevated fasting glucose R73.01
== END 2022-12-24 13:58 | disposition home or self-care (01) ==
PROVIDERS: PCP Family Medicine; Visit Provider Family Medicine
DX: I10 Essential (primary) hypertension (principal); B34.9 Viral infection, unspecified; R05.9 Cough, unspecified; R73.01 Impaired fasting glucose
CPT/HCPCS: 99214

== ENCOUNTER 2022-12-24 14:12 | Outpatient (REF) | payer MEDICARE, SELFPAY ==
[2022-12-24 19:00] LABS: Influenza A PCR NEGATIVE (Negative); Influenza B PCR NEGATIVE (Negative); Resp Syncy Virus RNA Qual PCR NEGATIVE (Negative); SARS COV2 PCR INHOUSE POSITIVE (Negative)
== END 2022-12-24 14:13 | disposition home or self-care (01) ==
LOC: HO.LAB 14:12
PROVIDERS: Visit Provider Family Medicine
DX: Z11.52 Encounter for screening for COVID-19 (principal); Z20.822 Contact with and (suspected) exposure to COVID-19; R05.9 Cough, unspecified
CPT/HCPCS: 0241U

== ENCOUNTER 2023-03-17 09:08 | Outpatient (REF) | payer MEDICARE, SELFPAY ==
[2023-03-17 11:43] LABS: MANUAL DIFF FLAG NO
[2023-03-17 12:05] LABS: Estimated Average Glucose 105 mg/dL; Hemoglobin A1c % 5.3 % (<6.0)
[2023-03-17 12:06] LABS: Basophils Absolute Auto 0.1 X10*3/uL (0.0-0.2); Basophils Percent Auto 0.6 % (0-2); Eosinophils Absolute Auto 0.2 X10*3/uL (0.0-0.4); Hemoglobin 15.1 g/dl (14.0-18.0); Imm Gran Abs Auto 0.04 X10*3/uL (0.00-0.03); Imm Gran Pct Auto 0.5 % (0.0-0.4); Lymphocytes Absolute Auto 1.8 X10*3/uL (1.2-4.9); Lymphocytes Percent Auto 22.4 % (20-40); Mean Corpuscular HGB Conc 33.6 g/dl (31.0-36.0); Mean Corpuscular Hemoglobin 30.6 pg (27.0-33.0); Mean Corpuscular Volume 91.3 fL (80.0-98.0); Mean Platelet Volume 10.9 fL (9.4-12.4); Monocytes Absolute Auto 0.5 X10*3/uL (0.1-1.2); Monocytes Percent Auto 6.4 % (2-11); Neutrophils Absolute Auto 5.5 x10*3/uL (2.0-8.3); Neutrophils Percent Auto 68.1 % (45-73); Platelet Count 227 X10*3/uL (160-400); Red Blood Count 4.93 X10*6/uL (4.60-5.80); Red Cell Distribution Width 13.1 % (11.0-16.0); White Blood Count 8.1 X10*3/uL (4.8-10.8)
[2023-03-17 12:23] LABS: Uric Acid 4.6 mg/dL (3.4-7.0)
[2023-03-17 12:24] LABS: Alanine Aminotransferase 46 U/L (0-40); Albumin Level 4.5 g/dL (3.5-5.0); Alkaline Phosphatase 68 U/L (39-117); Anion Gap 14 (12-20); Aspartate Amino Transferase 29 U/L (5-37); Bilirubin Total 1.1 mg/dL (0.0-1.0); Blood Urea Nitrogen 20 mg/dL (9-16); Calcium 9.7 mg/dL (8.4-10.2); Carbon Dioxide 24 mmol/L (22-29); Chloride 103 mmol/L (96-108); Estimated Glomerular Filt Rate > 60; Glucose Fasting 115 mg/dL (60-99); Glucose Random 115 mg/dL (60-115); Potassium 4.6 mmol/L (3.3-5.1); Sodium 136 mmol/L (135-145); Total Protein 7.2 g/dL (6.5-8.0)
== END 2023-03-17 09:09 | disposition home or self-care (01) ==
LOC: HO.HMGCLDS 09:08
PROVIDERS: PCP Family Medicine; Referring Provider Student in an Organized Health Care Education/Training Program; Visit Provider Family Medicine
DX: Z00.00 Encounter for general adult medical examination without abnormal findings (principal); R73.01 Impaired fasting glucose; M10.9 Gout, unspecified
CPT/HCPCS: 36415; 80053; 83036; 84550; 85025

== ENCOUNTER 2023-03-25 09:08 | Outpatient (AMB) | payer MEDICARE, SELFPAY ==
[2023-03-25 09:31] VITALS: BP 137/78; PULSE 74; O2SAT 97; BMI 36.5
--- NOTE | 2023-03-25 09:31 | MHC.PC.OV ---
Vital Signs 03/25/23 09:31 Height 6 ft 3 in Weight 292 lb BMI 36.5 BP 137/78 Blood Pressure Location Lt brachial Position Sitting Pulse 74 Pulse Source Pulse Oximeter Pulse Oximetry (%) 97 Oxygen Delivery Method Room Air Intake Visit Reasons: f/u hypertension Intake Note: Patient is following up on hypertension. Patient would like 90 day refill of Atorvastatin. Allergies No Known Allergies Allergy (Mild, Verified 03/25/23 09:33) NKA Tobacco use date assessed: 03/25/23 Fall risk assessment: No Falls in past year Last assessed Fall Risk: 03/25/23 Dental Screening Dental Screen Date: 03/25/23 Did you have a dental visit in the last 12 months?: Yes Did you have a dental problem in the last 6 months where you did not have access to dental care?: No Was dental information given to patient?: Patient has dentist HPI f/u hypertension HPI Details 67 y/o male presents to f/u hypertension and chronic conditions. Blood pressure today 137/78. He is on lisinopril-HCTZ 20-12.5mg, metoprolol 50mg and spironolactone 25mg daily. Labs were drawn 03/17/23. Reviewed labs with pt. Elevated ALT of 46. A1c 5.3%. Pt reports anxiety at night. He reports lorazepam has not been helping with his sleep. [facility] Medical History Anxiety Gout Hx of sleep apnea Psoriasis Hypertension Kidney stones History of spinal stenosis History of neuropathy Surgical History Hx of basal cell carcinoma excision Hx of lithotripsy History of dental surgery Hx of colonoscopy History of penile implant H/O ligation of vein Previous back surgery Social History Housing: House Patient Tobacco Use Status: Former Tobacco user Quit Date: 1996 Tobacco use type: Cigarette e-Cigarette/Vaping Use: Never Used Second Hand Smoke Exposure: No service: Yes Current occupational status: retired Current occupational exposures/hazards: No Cognitive needs: No Hearing needs: No Vision needs: No Questionnaire PHQ-9 Over the last 2 weeks, how often have you been bothered by any of the following problems? 1. Little interest or pleasure in doing things: not at all 2. Feeling down, depressed, or hopeless: not at all 3. Trouble falling or staying asleep, or sleeping too much: nearly every day 4. Feeling tired or having little energy: several days 5. Poor appetite or overeating: not at all 6. Feeling bad about yourself - or that you are a failure or have let yourself or your family down: not at all 7. Trouble concentrating on things, such as reading the newspaper or watching television: not at all 8. Moving or speaking so slowly that other people could have noticed. Or the opposite - being so fidgety or restless that you have been moving around a lot more than usual: not at all 9. Thoughts that you would be better off or of hurting yourself in some way: not at all Total score: 4 Source: Developed by Drs. Frankie Ashford, Corinne Oden, Phu Mitchell and colleagues, with an educational jo from [employer]. Thrive Questionnaire Date Thrive assessed: 03/25/23 I am a: Patient What is your living situation today?: I have a steady place to live Within the past 12 months, did the food you bought not last and you didn't have the money to get more?: Never true Within the past 12 months, did you worry whether your food would run out before you got money to buy more?: Never true Do you have trouble paying for medicines?: No Do you have trouble getting transportation to medical appointments?: No Do you have trouble paying your heating and electricity bill?: No Do you have trouble taking care of your child, family member or friend?: No Do you have trouble with day-to-day activities such as bathing, preparing meals, shopping, managing finances, etc.?: No Are you currently unemployed and looking for a job?: No Are you interested in more education?: No THRIVE Score: 0 AUDIT C Alcohol Use Questionnaire (AUDIT-C) 1. How often do you have a drink containing alcohol?: 2-3 times a week (Once a week) 2. How many drinks containing alcohol do you have on a typical day when you are drinking?: 1 or 2 3. How often do you have six or more drinks on one occasion?: Never Total Score: 3 BLANCO-7 AMB Questionnaire BLANCO-7 Date BLANCO - 7 assessed: 03/25/23 Feeling nervous, anxious, or on edge: 1 = Several days Not being able to stop or control worryin = Several days Worrying too much about different things: 1 = Several days Trouble relaxin = Not at all Being so restless that it is hard to sit still: 0 = Not at all Becoming easily annoyed or irritable: 3 = Nearly every day Feeling afraid as if something awful might happen: 0 = Not at all Total BLANCO-7 score (0-4 normal; 5-9 mild; 10-14 moderate; 15-21 severe): 6 Source: Developed by Drs. Frankie Ashford, Corinne Oden, Phu Mitchell and colleagues, with an educational jo from [employer]. Review of Systems Const Denies chills, Denies fatigue, Denies fever(s), Denies headache(s) and Denies weakness ENT Denies dizziness and Denies headache(s) Card Denies chest pain, Denies lightheadedness, Denies dyspnea and Denies other (Palpitations) Resp Denies cough, Denies dyspnea, Denies wheezing and Denies other ( shortness of breath) Musc Denies numbness and Denies tingling Neuro Denies dizziness, Denies headache(s), Denies numbness, Denies tingling, Denies paresthesias and Denies weakness Psych Denies anxiety and Denies depression Endo Denies fatigue Aller/Immun Denies wheezing Physical exam (Primary Care) Vital Signs: Last Vital Signs Pulse 74 03/25/23 09:31 BP 137/78 03/25/23 09:31 Pulse Ox 97 03/25/23 09:31 Oxygen Delivery Method Room Air 03/25/23 09:31 BMI result Body Mass Index 36.5 Tobacco/Smoking Status: Tobacco use Status Tobacco use date assessed 03/25/23 03/25/23 09:41 Patient Tobacco Use Status Former Tobacco user 03/25/23 09:41 Tobacco use type Cigarette 03/25/23 09:41 e-Cigarette/Vaping Use Never Used 03/25/23 09:41 PHQ-9: PHQ-9 Score PHQ-9: Total score 4 03/25/23 10:14 Thrive Assessment: Date of Thrive Assessment Date Thrive assessed 03/25/23 03/25/23 09:41 Const General: no acute distress and well developed Nutritional Appearance: well nourished Orientation/consciousness: patient oriented x3 [facility] Head: Yes normocephalic and Yes atraumatic Eyes General: appearance normal, both eyes and all related structures Pupils: Equal, round and reactive pupils present EOM: EOMs intact bilaterally Resp Effort & Inspection: normal respiratory effort Auscultation: clear to auscultation bilaterally Cardio Rate: regular rate Rhythm: regular rhythm Heart sounds: S1 normal heart sound present, S2 normal heart sound present, no gallops, no murmurs and no rubs Neuro General: patient oriented x3 and gait normal Cranial nerves: Yes Equal, round and reactive pupils present Psych Affect: normal affect Assessment and Plan Assessment & Plan (1) Essential hypertension: Code(s): I10 - Essential (primary) hypertension Plan: Blood?pressure?is?controlled.??Goal?is?less?than?140/90 Continue?current?medication?regimen (2) Atherosclerosis: Code(s): I70.90 - Unspecified atherosclerosis (3) Elevated ALT measurement: Code(s): R74.01 - Elevation of levels of liver transaminase levels Plan: Taking?atorvastatin?10?mg?daily Will?recheck?lipids?prior?to?next?visit (4) Viral illness: Code(s): B34.9 - Viral infection, unspecified Plan: Recent?COVID?infection Now?resolved (5) Anxiety: Code(s): F41.9 - Anxiety disorder, unspecified Plan: Patient?notes?anxiety?and?difficulty?sleeping. He?does?have?sleep?apnea?and?uses?a?CPAP. CPAP?started?only?6?months?ago. He?uses?lorazepam?at?bedtime?but?notes?that?this?is?not?always?helping. Can?try?trazodone (6) Sleep apnea: Code(s): G47.30 - Sleep apnea, unspecified Plan: Started?CPAP?6?months?ago Uses?regularly?but?sometimes?sleeps?sitting?upright?in?a?chair Continue?CPAP Orders: Orders Lipid Panel Today Z00.00 - Encounter for general adult medical examination without abnormal findings Prostate Specific Antigen Scr Today Z12.5 - Encounter for screening for malignant neoplasm of prostate UA and rflx microscopic Today Z00.00 - Encounter for general adult medical examination without abnormal findings Comprehensive [place]. Panel Fast Today Z00.00 - Encounter for general adult medical examination without abnormal findings Microalbumin, Random (w Creat) Today I10 - Essential (primary) hypertension TSH reflex Free T4 Today Z00.00 - Encounter for general adult medical examination without abnormal findings Medications: Refilled atorvastatin 10 mg PO BEDTIME 90 days 90 tabs 3RF Coding Level of Care Code Est Pt Level 4 (99455) Diagnoses Essential hypertension I10 Atherosclerosis I70.90 Elevated ALT measurement R74.01 Viral illness B34.9 Anxiety F41.9 Sleep apnea G47.30
== END 2023-03-25 10:41 | disposition home or self-care (01) ==
PROVIDERS: PCP Family Medicine; Visit Provider Family Medicine
DX: I10 Essential (primary) hypertension (principal); I70.90 Unspecified atherosclerosis; R74.01 Elevation of levels of liver transaminase levels; B34.9 Viral infection, unspecified; F41.9 Anxiety disorder, unspecified; G47.30 Sleep apnea, unspecified
CPT/HCPCS: 99214

== ENCOUNTER 2023-04-07 07:42 | Outpatient (AMB) | payer MEDICARE, SELFPAY ==
[2023-04-07 07:49] VITALS: BP 128/72; PULSE 58
--- NOTE | 2023-04-07 07:49 | A.OFFVIS_ITS ---
Intake Vital Signs 04/07/23 07:49 Height 6 ft 3 in BMI Reason not done Patient refused/unable BP 128/72 Blood Pressure Location Rt brachial Position Sitting Pulse 58 Pulse Source Pulse Oximeter Intake Visit Reasons: Gout Intake Note: Patient last seen 12/16/22 presents today for follow up and test results. Patient reports since being on Colchicine twice a day he has been having more diarrhea and had to cut back to once a day. 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 Accompanied by: Self / Same As Patient Allergies No Known Allergies Allergy (Mild, Verified 04/07/23 07:51) NKA Medication List - Last Reconciled 04/07/23 by Reyes Jones MD allopurinol 300 mg PO DAILY allopurinol 100 mg PO DAILY amlodipine 10 mg PO DAILY 90 days atorvastatin 10 mg PO BEDTIME 90 days colchicine 0.6 mg PO BID fluticasone propionate 50 mcg/actuation 1 spray intranasal BID lisinopril-hydrochlorothiazide 20-12.5 mg 2 tabs PO DAILY 90 days lorazepam 1 mg PO BEDTIME PRN 30 days metoprolol succinate ER 50 mg (2 x 25 mg) PO DAILY 90 days spironolactone 25 mg PO DAILY 90 days HPI HPI Comments History of Present Illness Details 67-year-old male with gout returns for [facility]. Last visit in December, patient was starting with flu-like illness, he was having some diarrhea. He was also having what we suspect it was a gout flare-up. It was a telehealth phone visit. Afterwards he discovered that it was COVID infection. I asked patient to increase his colchicine to 2 tabs a day. He was having diarrhea so he cut the colchicine back to 1 tablet daily. He has been having diarrhea since. He had gets either loose or watery stools once or twice a day. He states that since then he has had 4-5 gout flare-ups affecting his right foot. He would have numbness in his middle 3 toes without significant swelling. He does not take anything for them. Initial history: This is a 66-year-old male with a past medical history of difficult to control hypertension, gout, lumbar spine spinal stenosis s/p lumbar spine surgery, peripheral neuropathy who presents for evaluation of gout. Patient stated he was diagnosed with gout about 20 years ago when he would have attacks of painful red hot swollen toes. His uric acid was elevated and he was diagnosed with gout. He was started on allopurinol and colchicine at that time a however he stated that over the years for unknown reason the colchicine was not renewed. In 2018 patient was admitted a severe UTI related to kidney stones and had lithotripsy. Patient stated that he had neuropathy a few years back and at that time the allopurinol was discontinued however patient had a flare-up in May of 2020, his uric acid was 9.2 and he was restarted on allopurinol. Patient states that he continues to have some mild pain and swelling of his toes. [facility] Medical History Anxiety Gout Hx of sleep apnea Psoriasis Hypertension Kidney stones History of spinal stenosis History of neuropathy Surgical History Hx of basal cell carcinoma excision Hx of lithotripsy History of dental surgery Hx of colonoscopy History of penile implant H/O ligation of vein Previous back surgery Social History Housing: House Patient Tobacco Use Status: Former Tobacco user Quit Date: 1996 Tobacco use type: Cigarette e-Cigarette/Vaping Use: Never Used Second Hand Smoke Exposure: No service: Yes Current occupational status: retired Current occupational exposures/hazards: No Cognitive needs: No Hearing needs: No Vision needs: No Review of Systems GI Reports diarrhea and Reports loose stools Musc Reports arthralgias and Reports numbness Neuro Reports numbness Physical Exam Vital Signs: Last Vital Signs Pulse 58 04/07/23 07:49 BP 128/72 04/07/23 07:49 Const General: cooperative, healthy appearing and comfortable Nutritional Appearance: obese morbidly obese Orientation/consciousness: patient oriented x3 Limitations: no limitations HEENT Head: Yes normocephalic and Yes atraumatic Resp Effort & Inspection: normal respiratory effort and able to speak in complete sentences Neuro General: patient oriented x3 Extrem Other: No active synovitis Normal range of motion of shoulders Normal nailfold capillaroscopy Mildly swollen right 4th toe without tenderness or warmth Assessment & Plan Assessment & Plan (1) Gout: Code(s): M10.9 - Gout, unspecified Qualifiers: Gout site: multiple sites Gout etiology: idiopathic Chronicity: chronic Presence of tophus: without tophus Qualified Code(s): M1A.09X0 - Idiopathic chronic gout, multiple sites, without tophus (tophi) Plan: This is a 67-year-old male with gout diagnosed in his 40s with bilateral painful red swollen toes, elevated uric, history of kidney stone (likely urate stones but not confirmed) who presents for follow-up. Patient has been taking colchicine twice daily, but has been having diarrhea and loose stools. But this started before he advanced his colchicine to twice daily, he was having a viral infection that turned out to be COVID. He also states that he has been having frequent gout flare-ups affecting his right foot. Happened 4-5 times since December. I believe these are neuropathy symptoms affecting his right foot. He was evaluated by a neurologist in the past and had EMG/NCV and was told he has mild neuropathy. Lyrica was tried and was not helpful Uric acid level is at target He cut the colchicine back to 1 tab daily but he continues to have diarrhea or loose stools twice a day. Advised patient to hold colchicine altogether for the next 2-3 weeks and contact our office. Continue tart pedroza extract. Also squeeze 2 tai on a large glass of water and drink daily Continue allopurinol 400 mg daily Follow-up in 2 months (2) Peripheral neuropathy: Code(s): G62.9 - Polyneuropathy, unspecified Qualifiers: Peripheral neuropathy type: idiopathic neuropathy, unspecified Qualified Code(s): G60.9 - Hereditary and idiopathic neuropathy, unspecified Plan: had EMG/NCV in the past and was told he has mild neuropathy Patient tried gabapentin in the past, caused side effects, Lyrica was not helpful. Patient is not too excited about re-evaluation by Neurology. Will consider venlafaxine or Cymbalta in the future Plan I spent 35 minutes reviewing patient's chart, evaluating patient, counseling patient and documenting in the chart Coding Level of Care Code Est Pt Level 4 (00617) Diagnoses Idiopathic chronic gout of multiple sites without tophus M1A.09X0 Gout site: multiple sites Gout etiology: idiopathic Chronicity: chronic Presence of tophus: without tophus Idiopathic peripheral neuropathy G60.9 Peripheral neuropathy type: idiopathic neuropathy, unspecified
== END 2023-04-07 08:22 | disposition home or self-care (01) ==
PROVIDERS: PCP Family Medicine; Visit Provider Student in an Organized Health Care Education/Training Program
DX: M1A.09X0 Idiopathic chronic gout, multiple sites, without tophus (tophi) (principal); G60.9 Hereditary and idiopathic neuropathy, unspecified
CPT/HCPCS: 99214

== ENCOUNTER → 2023-04-07 07:42 | Outpatient (BNVA) | payer MEDICARE, SELFPAY | PROVIDERS: PCP Family Medicine; Visit Provider Student in an Organized Health Care Education/Training Program | DX: M1A.09X0 Idiopathic chronic gout, multiple sites, without tophus (tophi) (principal); G60.9 Hereditary and idiopathic neuropathy, unspecified | CPT/HCPCS: 99212 ==

== ENCOUNTER 2023-06-30 09:10 | Outpatient (REF) | payer MEDICARE, SELFPAY ==
[2023-06-30 10:29] LABS: Appearance Urine Clear; Color Urine Yellow; Glucose Urine UA Negative (Negative); Leukocyte Esterase Urine Negative (Negative); Nitrite Urine Negative (Negative); Urine Blood Negative (Negative); Urine Ketones Negative (Negative); Urine Protein Negative (Neg-Trace)
[2023-06-30 10:42] LABS: Estimated Average Glucose 111 mg/dL; Hemoglobin A1c % 5.5 % (<6.0)
[2023-06-30 10:54] LABS: Creatinine Urine 117.09 mg/dL; Microalbum/Creatinine Ratio Ur 5.9 ug/mg cr (<30)
[2023-06-30 11:02] LABS: Prostate Specific Antigen Scr 2.69 ng/mL (<0.05-4.0)
[2023-06-30 11:05] LABS: Alanine Aminotransferase 42 U/L (0-40); Albumin Level 4.6 g/dL (3.5-5.0); Alkaline Phosphatase 68 U/L (39-117); Anion Gap 15 (12-20); Aspartate Amino Transferase 26 U/L (5-37); Bilirubin Total 1.3 mg/dL (0.0-1.0); Blood Urea Nitrogen 20 mg/dL (9-16); Calcium 9.9 mg/dL (8.4-10.2); Carbon Dioxide 25 mmol/L (22-29); Chloride 104 mmol/L (96-108); Cholesterol 129 mg/dL (<200); Estimated Glomerular Filt Rate > 60; Glucose Fasting 116 mg/dL (60-99); HDL Cholesterol 36 mg/dL (>40); LDL Cholesterol Calculated 68 mg/dL (<100); Potassium 4.6 mmol/L (3.3-5.1); Sodium 139 mmol/L (135-145); TSH reflex Free T4 1.12 uIU/mL (0.32-4.0); Triglycerides 128 mg/dL (<150)
== END 2023-06-30 09:11 | disposition home or self-care (01) ==
LOC: HO.HMGCLDS 09:10
PROVIDERS: PCP Family Medicine; Visit Provider Family Medicine
DX: Z00.00 Encounter for general adult medical examination without abnormal findings (principal); Z12.5 Encounter for screening for malignant neoplasm of prostate; R73.01 Impaired fasting glucose; I10 Essential (primary) hypertension
CPT/HCPCS: 36415; 80053; 80061; 81003; 82043; 82570; 83036; 84153; 84443

== ENCOUNTER 2023-07-06 13:31 | Outpatient (AMB) | payer MEDICARE, SELFPAY ==
--- NOTE | 2023-07-06 13:34 | MHC.PC.OV ---
Vital Signs 07/06/23 13:35 Height 6 ft 3 in Weight 295 lb BMI 36.9 BP 132/70 Blood Pressure Location Rt brachial Position Sitting Respiration 14 Pulse 96 Pulse Source Pulse Oximeter Temp 97.8 F Temp Source Temporal Artery Scan Pulse Oximetry (%) 98 Oxygen Delivery Method Room Air Intake Visit Reasons: CPE with f/u labs and health maint. 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 HPI Details 68 y/o male presents for an extended examw ith f/u labs and health maintenance. Labs were drawn 06/30/23. Reviewed labs with pt. Elevated fasting glucose of 116. A1c 5.5%. Elevated ALT of 42. Triglycerides 128. TC 129. LDL 68. HDL low at 36. Blood pressure today 132/70. He is on lisinopril-HCTZ 20-12.5mg, metoprolol 50mg, spironolactone 25mg, amlodipine 10mg daily. Pt reports hearing changes. [facility], LAT[facility] Medical History Anxiety Gout Hx of sleep apnea Psoriasis Hypertension Kidney stones History of spinal stenosis History of neuropathy Surgical History Hx of basal cell carcinoma excision Hx of lithotripsy History of dental surgery Hx of colonoscopy History of penile implant H/O ligation of vein Previous back surgery Social History Housing: House Patient Tobacco Use Status: Former Tobacco user Quit Date: 1996 Tobacco use type: Cigarette e-Cigarette/Vaping Use: Never Used Second Hand Smoke Exposure: No service: Yes Current occupational status: retired Current occupational exposures/hazards: No Cognitive needs: No Hearing needs: No Vision needs: No Questionnaire PHQ-9 Over the last 2 weeks, how often have you been bothered by any of the following problems? 1. Little interest or pleasure in doing things: not at all 2. Feeling down, depressed, or hopeless: not at all 3. Trouble falling or staying asleep, or sleeping too much: not at all 4. Feeling tired or having little energy: not at all 5. Poor appetite or overeating: not at all 6. Feeling bad about yourself - or that you are a failure or have let yourself or your family down: not at all 7. Trouble concentrating on things, such as reading the newspaper or watching television: not at all 8. Moving or speaking so slowly that other people could have noticed. Or the opposite - being so fidgety or restless that you have been moving around a lot more than usual: not at all 9. Thoughts that you would be better off or of hurting yourself in some way: not at all Total score: 0 Depression Screening Interpretation: Negative Depression Screening Done: Yes 45948 - PHQ-9 Billing: Yes Source: Developed by Drs. Frankie Ashford, Corinne Oden, Phu Mitchell and colleagues, with an educational jo from [employer]. Thrive Questionnaire Date Thrive assessed: 07/06/23 I am a: Patient What is your living situation today?: I have a steady place to live Within the past 12 months, did the food you bought not last and you didn't have the money to get more?: Never true Within the past 12 months, did you worry whether your food would run out before you got money to buy more?: Never true Do you have trouble paying for medicines?: No Do you have trouble getting transportation to medical appointments?: No Do you have trouble paying your heating and electricity bill?: No Do you have trouble taking care of your child, family member or friend?: No Do you have trouble with day-to-day activities such as bathing, preparing meals, shopping, managing finances, etc.?: No Are you currently unemployed and looking for a job?: No Are you interested in more education?: No Please select the resources that you would like help with: None THRIVE Score: 0 AUDIT C Alcohol Use Questionnaire (AUDIT-C) 1. How often do you have a drink containing alcohol?: 4 or more times a week 2. How many drinks containing alcohol do you have on a typical day when you are drinking?: 1 or 2 3. How often do you have six or more drinks on one occasion?: Never Total Score: 4 BLANCO-7 AMB Questionnaire BLANCO-7 Date BLANCO - 7 assessed: 07/06/23 Feeling nervous, anxious, or on edge: 0 = Not at all Not being able to stop or control worryin = Not at all Worrying too much about different things: 0 = Not at all Trouble relaxin = Not at all Being so restless that it is hard to sit still: 0 = Not at all Becoming easily annoyed or irritable: 0 = Not at all Feeling afraid as if something awful might happen: 0 = Not at all Total BLANCO-7 score (0-4 normal; 5-9 mild; 10-14 moderate; 15-21 severe): 0 Source: Developed by Drs. Frankie Ashford, Corinne Oden, Phu Mitchell and colleagues, with an educational jo from [employer]. BLANCO-7 Assessment Billing BLANCO-7 Assessment Tool: BLANCO-7 Assessment 16083 Review of Systems Const Denies chills, Denies fatigue, Denies fever(s), Denies headache(s) and Denies weakness Eyes Denies change in vision ENT Denies dizziness, Denies headache(s), Denies hearing loss, Denies nasal congestion, Denies sinus pain, Denies sinus pressure and Denies sore throat Card Denies chest pain, Denies lightheadedness, Denies dyspnea and Denies other (palpitations) Resp Denies cough, Denies dyspnea and Denies wheezing GI Denies abdominal pain, Denies melena, Denies hematochezia, Denies change in bowel habits, Denies dyspepsia and Denies nausea Denies hematuria and Denies dysuria Musc Denies abnormal gait, Denies myalgias, Denies arthralgias, Denies numbness and Denies tingling Skin/Breast Denies rash, Denies unusual bruising and Denies wounds Neuro Denies abnormal gait, Denies dizziness, Denies headache(s), Denies memory loss, Denies numbness, Denies Sensory deficit (Neuro), Denies tingling and Denies weakness Psych Denies anxiety, Denies depression and Denies memory loss Endo Denies cold intolerance, Denies fatigue, Denies heat intolerance, Denies polydipsia and Denies polyuria Michael/Lymph Denies easy bleeding and Denies easy bruising Aller/Immun Denies wheezing Physical exam (Primary Care) Vital Signs: Last Vital Signs Temp 97.8 F 07/06/23 13:35 Pulse 96 07/06/23 13:35 Resp 14 07/06/23 13:35 BP 132/70 07/06/23 13:35 Pulse Ox 98 07/06/23 13:35 Oxygen Delivery Method Room Air 07/06/23 13:35 BMI result Body Mass Index 36.9 Tobacco/Smoking Status: Tobacco use Status Tobacco use date assessed 07/06/23 07/06/23 13:46 Patient Tobacco Use Status Former Tobacco user 07/06/23 13:35 Tobacco use type Cigarette 07/06/23 13:35 e-Cigarette/Vaping Use Never Used 07/06/23 13:35 PHQ-9: PHQ-9 Score PHQ-9: Total score 0 07/06/23 13:46 Depression Screening Interpretation: Negative Thrive Assessment: Date of Thrive Assessment Date Thrive assessed 07/06/23 07/06/23 13:46 Const General: no acute distress, well developed, alert and awake Nutritional Appearance: well nourished Orientation/consciousness: patient oriented x3 HENMT Head: Yes normocephalic and Yes atraumatic Ears: hearing grossly normal bilaterally and TM's normal bilaterally General nose exam: Normal external nose present and Normal nares present Mouth: Normal oral and palatal mucosa present and moist mucous membranes Teeth and gingiva: dentition normal Throat: Yes posterior oropharynx normal Eyes General: appearance normal, both eyes and all related structures Pupils: Equal, round and reactive pupils present and Pupil accommodation reflex normal EOM: EOMs intact bilaterally Neck Neck: Yes normal visual inspection, Yes no lymphadenopathy and Yes trachea midline Thyroid: Thyroid normal Carotids: no bruits Lymphatic: no lymphadenopathy noted Chest Chest palpation & inspection: normal inspection of the chest Resp Effort & Inspection: normal respiratory effort Auscultation: clear to auscultation bilaterally Cardio Rate: regular rate Rhythm: regular rhythm Heart sounds: S1 normal heart sound present, S2 normal heart sound present, no gallops, no murmurs and no rubs Bruits: no abdominal aortic bruits and no carotid bruits GI Palpation (GI): No Abdominal aortic bruit present, Soft to palpation, nontender, No hepatosplenomegaly present and No Rebound tenderness present Auscultation: normal bowel sounds General: Yes no CVA tenderness Back/Spine/Pelvis Back: no CVA tenderness Cervical Spine: cervical ROM normal and No Cervical spine tenderness Thoracic/Lumbar Spine: thoraco-lumbar ROM normal, No pain with thoraco-lumbar ROM, No thoracic spinal tenderness and No lumbar spinal tenderness Skin Lesions: no lesions Rashes: no rashes Trauma: no lacerations or abrasions Wounds: no wounds Nails: normal Neuro General: patient oriented x3 Cranial nerves: Yes Equal, round and reactive pupils present Cognition (Neuro): normal cognition Gait exam (Neuro): Normal gait present Motor exam (neuro): 5/5 motor strength present throughout Sensory Exam: No Sensory deficit (Neuro) Deep tendon reflexes (DTR's): Right patellar reflex intensity grade: 2+ and Left patellar reflex intensity grade: 2+ Extrem General: Yes normal to inspection and No edema Psych Appearance: grossly normal Affect: normal affect Attitude: cooperative Thought process: Normal thought process present Assessment and Plan Assessment & Plan (1) Essential hypertension: Code(s): I10 - Essential (primary) hypertension Plan: Blood?pressure?is?controlled.??Goal?is?less?than?140/90 Continue?current?blood?pressure?medications?and?avoid?salt/sodium Encouraged?exercise?and?weight?loss (2) Venous stasis dermatitis: Code(s): I87.2 - Venous insufficiency (chronic) (peripheral) Plan: Venous?insufficiency?with?venous?stasis?dermatitis?which?is?also?contributing?to?discomfort?at?feet?and?ankles. I?think?he?has?some?nerve?irritation?superimposed?on?neuropathy. Avoid?swelling?in?lower?extremities?by?elevating?legs?throughout?the?day?and?when?he?can?not?elevate?he?should?use?compression?stockings. He?also?intends?to?discuss?treatment?for?neuropathy?with?his?stone polisher machine?as?they?had?already?been?discussing?this. He?can?also?discuss?medications?for?neuropathy?with?me?as?well.??He?has?tried?gabapentin?and?pregabalin?and?also?lidocaine?gel.??Rheumatology?is?considering?venlafaxine?or?duloxetine?and?I?think?these?are?a?good?idea. We?discussed?that?if?he?is?still?having?issues?with?swelling?despite?compression?stockings?and?elevation,?we?could?try?a?small?amount?of?furosemide?while?monitoring?his?renal?function?which?is?currently?courtney (3) Elevated ALT measurement: Code(s): R74.01 - Elevation of levels of liver transaminase levels Plan: ALT?has?decreased Encouraged?him?to?continue?working?on?weight?loss Will?re-evaluate?in?a?few?months. (4) Elevated fasting glucose: Code(s): R73.01 - Impaired fasting glucose Plan: Elevated?fasting?blood?sugar?and?his?A1c?is?at?top?normal?range Encouraged?weight?loss?and?diet?low?in?sugars?and?starches Encouraged?exercise (5) Low HDL (under 40): Code(s): E78.6 - Lipoprotein deficiency Plan: Encouraged?exercise Patient?has?had?difficulty?exercising?due?to?lower?extremity?pain Encouraged?alternative?exercises?such?as?swimming (6) Allergic conjunctivitis: Code(s): H10.10 - Acute atopic conjunctivitis, unspecified eye Plan: He?can?use?olopatadine?(Pataday?brand) eyedrops Continue nasal?steroid (7) Screening for colon cancer: Code(s): Z12.11 - Encounter for screening for malignant neoplasm of colon Plan: Followed?by??[facility] Will?request?most?recent?note (8) Screening for prostate cancer: Code(s): Z12.5 - Encounter for screening for malignant neoplasm of prostate Plan: PSA?is?stable?and?within?normal?range Will?continue?annual?screening (9) Change in hearing: Code(s): H91.90 - Unspecified hearing loss, unspecified ear Plan: Has?worn?hearing?aids?in?the?past Will?refer?him?back?to?[facility]?for?audiology?testing?and?re-evaluation Orders: Referrals Audiology Referral H91.90 - Unspecified hearing loss, unspecified ear Coding Level of Care Code Est Pt Level 4 (61861) Diagnoses Essential hypertension I10 Venous stasis dermatitis I87.2 Elevated ALT measurement R74.01 Elevated fasting glucose R73.01 Low HDL (under 40) E78.6 Allergic conjunctivitis H10.10 Screening for colon cancer Z12.11 Screening for prostate cancer Z12.5 Change in hearing H91.90 Additional Codes BLANCO-7 Assessment Billing - BLANCO-7 Assessment Tool: BLANCO-7 Assessment 86941 ([id number])
[2023-07-06 13:35] VITALS: BP 132/70; PULSE 96; RESP 14; TEMP 36.6; O2SAT 98; BMI 36.9
== END 2023-07-06 14:28 | disposition home or self-care (01) ==
PROVIDERS: PCP Family Medicine; Visit Provider Family Medicine
DX: Z00.00 Encounter for general adult medical examination without abnormal findings (principal); I10 Essential (primary) hypertension; I87.2 Venous insufficiency (chronic) (peripheral); R74.01 Elevation of levels of liver transaminase levels; R73.01 Impaired fasting glucose; E78.6 Lipoprotein deficiency; H10.10 Acute atopic conjunctivitis, unspecified eye; Z12.11 Encounter for screening for malignant neoplasm of colon; Z12.5 Encounter for screening for malignant neoplasm of prostate; H91.93 Unspecified hearing loss, bilateral
CPT/HCPCS: 99397

== ENCOUNTER 2023-07-11 07:42 | Outpatient (AMB) | payer MEDICARE, SELFPAY ==
--- NOTE | 2023-07-11 07:43 | A.OFFVIS_ITS ---
Vital Signs 07/11/23 07:44 Height 6 ft 3 in Weight 295 lb BMI 36.9 BP 132/70 Blood Pressure Location Rt brachial Position Sitting Pulse 79 Pulse Oximetry (%) 97 Intake Visit Reasons: Gout Intake Note: Patient last seen 04/07/23 presents today for follow up. Allergies No Known Allergies Allergy (Mild, Verified 07/11/23 07:45) NKA Medication List - Last Reconciled 07/11/23 by Reyes Jones MD allopurinol 300 mg PO DAILY allopurinol 100 mg PO DAILY amlodipine 10 mg PO DAILY 90 days atorvastatin 10 mg PO BEDTIME 90 days colchicine 0.6 mg PO Q OTHER DAY fluticasone propionate 50 mcg/actuation 1 spray intranasal BID lidocaine-prilocaine 2.5-2.5 % 1 appl topical .QD lisinopril-hydrochlorothiazide 20-12.5 mg 2 tabs PO DAILY 90 days lorazepam 1 mg PO BEDTIME PRN 30 days metoprolol succinate ER 50 mg (2 x 25 mg) PO DAILY 90 days spironolactone 25 mg PO DAILY 90 days trazodone 100 mg PO BEDTIME PRN 30 days HPI Comments Details: 68-year-old male with gout returns for follow-up. His gout is well controlled on allopurinol 400 mg daily and colchicine 0.6 mg every other day. He does get soft stools but they are quite tolerable. His main complaint is with the of his feet. Burning soreness pain both feet, worse on the right. Lyrica was tried in the past and was not helpful Initial history: This is a 66-year-old male with a past medical history of difficult to control hypertension, gout, lumbar spine spinal stenosis s/p lumbar spine surgery, peripheral neuropathy who presents for evaluation of gout. Patient stated he was diagnosed with gout about 20 years ago when he would have attacks of painful red hot swollen toes. His uric acid was elevated and he was diagnosed with gout. He was started on allopurinol and colchicine at that time a however he stated that over the years for unknown reason the colchicine was not renewed. In 2018 patient was admitted a severe UTI related to kidney stones and had lithotripsy. Patient stated that he had neuropathy a few years back and at that time the allopurinol was discontinued however patient had a flare-up in May of 2020, his uric acid was 9.2 and he was restarted on allopurinol. Patient states that he continues to have some mild pain and swelling of his toes. [facility] Medical History Anxiety Gout Hx of sleep apnea Psoriasis Hypertension Kidney stones History of spinal stenosis History of neuropathy Surgical History Hx of basal cell carcinoma excision Hx of lithotripsy History of dental surgery Hx of colonoscopy History of penile implant H/O ligation of vein Previous back surgery Social History Housing: House Alcohol intake: current Alcohol intake frequency: 0-2 drinks per day Patient Tobacco Use Status: Former Tobacco user Tobacco use type: Cigarette e-Cigarette/Vaping Use: Never Used Second Hand Smoke Exposure: No service: Yes Current occupational status: retired Current occupational exposures/hazards: No Cognitive needs: No Hearing needs: No Vision needs: No Review of Systems GI Reports loose stools Musc Reports numbness and Reports tingling Neuro Reports numbness, Reports tingling and Reports paresthesias Physical Exam Vital Signs: Last Vital Signs Pulse 79 07/11/23 07:44 BP 132/70 07/11/23 07:44 Pulse Ox 97 07/11/23 07:44 BMI result Body Mass Index 36.9 Const General: cooperative, healthy appearing and comfortable Nutritional Appearance: obese morbidly obese Orientation/consciousness: patient oriented x3 Limitations: no limitations HEENT Head: Yes normocephalic and Yes atraumatic Resp Effort & Inspection: normal respiratory effort and able to speak in complete sentences Neuro Other: Abnormal sensation upon palpation of both feet and toes General: patient oriented x3 Extrem Other: No active synovitis Normal range of motion of shoulders Normal nailfold capillaroscopy Assessment & Plan Assessment & Plan (1) Gout: Code(s): M10.9 - Gout, unspecified Category: Medical Qualifiers: Gout site: multiple sites Gout etiology: idiopathic Chronicity: chronic Presence of tophus: without tophus Qualified Code(s): M1A.09X0 - Idiopathic chronic gout, multiple sites, without tophus (tophi) Plan: This is a 68-year-old male with gout diagnosed in his 40s with bilateral painful red swollen toes, elevated uric, history of kidney stone (likely urate stones but not confirmed) who presents for follow-up. Gout is well controlled on allopurinol 400 mg daily and colchicine 0.6 mg every other day. Continue current meds Continue tart pedroza extract. squeeze 2 tai on a large glass of water and d rink daily Continue allopurinol 400 mg daily Labs before next visit in 3 months (2) Peripheral neuropathy: Code(s): G62.9 - Polyneuropathy, unspecified Category: Medical Qualifiers: Peripheral neuropathy type: idiopathic neuropathy, unspecified Qualified Code(s): G60.9 - Hereditary and idiopathic neuropathy, unspecified Plan: had EMG/NCV in the past and was told he has mild neuropathy Patient tried gabapentin in the past, caused side effects, Lyrica was not helpful. Patient is not too excited about re-evaluation by Neurology. Will try Cymbalta. 30 mg daily for 2 weeks then 60 mg daily. Up in 3 months Plan I spent 25 minutes reviewing patient's chart, evaluating patient, ordering diagnostic workup, counseling patient and documenting in the chart Orders: Orders Comprehensive Met. Panel 3 Months M1A.09X0 - Idiopathic chronic gout, multiple sites, without tophus (tophi) Uric Acid 3 Months M1A.09X0 - Idiopathic chronic gout, multiple sites, without tophus (tophi) Medications: New duloxetine (Cymbalta) Take 1 capsule daily for 2 weeks then 2 capsules daily 60 caps 2RF Coding Level of Care Code Est Pt Level 4 (60854) Diagnoses Idiopathic chronic gout of multiple sites without tophus M1A.09X0 Gout site: multiple sites Gout etiology: idiopathic Chronicity: chronic Presence of tophus: without tophus Idiopathic peripheral neuropathy G60.9 Peripheral neuropathy type: idiopathic neuropathy, unspecified
[2023-07-11 07:44] VITALS: BP 132/70; PULSE 79; O2SAT 97; BMI 36.9
== END 2023-07-11 08:03 | disposition home or self-care (01) ==
PROVIDERS: PCP Family Medicine; Visit Provider Student in an Organized Health Care Education/Training Program
DX: M1A.09X0 Idiopathic chronic gout, multiple sites, without tophus (tophi) (principal); G60.9 Hereditary and idiopathic neuropathy, unspecified
CPT/HCPCS: 99214

== ENCOUNTER → 2023-07-11 07:42 | Outpatient (BNVA) | payer MEDICARE, SELFPAY | PROVIDERS: PCP Family Medicine; Visit Provider Student in an Organized Health Care Education/Training Program | DX: M1A.09X0 Idiopathic chronic gout, multiple sites, without tophus (tophi) (principal); G60.9 Hereditary and idiopathic neuropathy, unspecified | CPT/HCPCS: 99212 ==

== ENCOUNTER 2023-08-12 09:19 | Outpatient (REF) | payer MEDICARE, SELFPAY | END 2023-08-12 09:20 | disposition home or self-care (01) | LOC: HO.SH 09:19 | PROVIDERS: Visit Provider Family Medicine | DX: Z01.118 Encounter for examination of ears and hearing with other abnormal findings (principal); H90.3 Sensorineural hearing loss, bilateral | CPT/HCPCS: 92557 ==

== ENCOUNTER 2023-08-12 10:11 | Outpatient (REF) | payer SELFPAY ==
--- NOTE | 2023-08-12 12:53 | MHC.AU.HA3 ---
Hearing Instrument Follow-Up- Binaural Date of Visit: 08/12/23 Right Ear: Eduard, Model, Color, Serial Number: Tessie Anderson [id number] SN: [id number] Slasher Tender Repair Warranty: 01/16/2022 Slasher Tender Loss and Damage Warranty: 01/16/2022 Battery Size: Rechargeable Casino Runner/Slim Tube: 1M Earmold/Dome/CShell/SlimTip:Large open dome (no retention tail) Type of Wax Guard: CeruShield Dispensed By: [facility] Date of Fittin03/28/2019 (originally purchased for mother in November 2018) Left Ear: Eduard, Model, Color, Serial Number: Tessie Anderson [id number] SN: [id number] Slasher Tender Repair Warranty: 01/16/2022 Slasher Tender Loss and Damage Warranty: 01/16/2022 Battery Size: Rechargeable Casino Runner/Slim Tube: 1M Earmold/Dome/CShell/SlimTip: Large open dome (no retention tail) Type of Wax Guard: CeruShield Dispensed By: [facility] Date of Fittin03/28/2019 (originally purchased for mother in November 2018) Follow-Up Summary: Routine hearing aid maintenance following updated hearing test. Has not been wearing consistently since COVID. Typically only wears when going out. Reportedly not holding a charge. Cleaned both hearing aids. Replaced domes and wax guards. Vacuumed microphones. Ran through dehumidifier. Listening check demonstrated hearing aids amplifying clearly. Updated firmware, which may have been contributing to charging issues. Also provided new wall plug. Reprogrammed to updated hearing test with noted improvement in sound quality in office. If charging issues persist, may need to send to [employer] to replace rechargeable battery. Quoted $330.00 per aid. Jacob will drop off the hearing aids if he decides to send them out for repair. Recommendations: Hearing instrument follow-up or maintenance as needed. Please contact our clinic with any questions or concerns. Diagnosis Code(s): Primary Diagnosis: H90.3 Bilateral Sensorineural Hearing Loss Signature: Provider: Bobbi Lara, [facility]
== END 2023-08-12 10:12 | disposition home or self-care (01) ==
LOC: HO.HAP 10:11
PROVIDERS: Visit Provider Family Medicine
DX: Z46.1 Encounter for fitting and adjustment of hearing aid (principal); H90.3 Sensorineural hearing loss, bilateral
CPT/HCPCS: 92593

== ENCOUNTER 2023-10-03 09:27 | Outpatient (REF) | payer MEDICARE, SELFPAY ==
[2023-10-03 11:05] LABS: Estimated Average Glucose 108 mg/dL; Hemoglobin A1c % 5.4 % (<6.0)
[2023-10-03 11:44] LABS: Alanine Aminotransferase 39 U/L (0-40); Albumin Level 4.4 g/dL (3.5-5.0); Alkaline Phosphatase 70 U/L (39-117); Anion Gap 13 (12-20); Aspartate Amino Transferase 21 U/L (5-37); Bilirubin Total 0.9 mg/dL (0.0-1.0); Blood Urea Nitrogen 24 mg/dL (9-16); Calcium 9.1 mg/dL (8.4-10.2); Carbon Dioxide 22 mmol/L (22-29); Chloride 107 mmol/L (96-108); Cholesterol 133 mg/dL (<200); Estimated Glomerular Filt Rate > 60; Glucose Fasting 124 mg/dL (60-99); HDL Cholesterol 35 mg/dL (>40); LDL Cholesterol Calculated 74 mg/dL (<100); Potassium 4.2 mmol/L (3.3-5.1); Sodium 138 mmol/L (135-145); Total Protein 6.8 g/dL (6.5-8.0); Triglycerides 120 mg/dL (<150)
== END 2023-10-03 09:28 | disposition home or self-care (01) ==
LOC: HO.HMGCLDS 09:27
PROVIDERS: PCP Family Medicine; Referring Provider Student in an Organized Health Care Education/Training Program; Visit Provider Family Medicine
DX: Z00.00 Encounter for general adult medical examination without abnormal findings (principal); R73.01 Impaired fasting glucose; R74.01 Elevation of levels of liver transaminase levels; I70.90 Unspecified atherosclerosis
CPT/HCPCS: 36415; 80053; 80061; 83036

== ENCOUNTER 2023-10-07 08:25 | Outpatient (AMB) | payer MEDICARE, SELFPAY ==
--- NOTE | 2023-10-07 08:47 | MHC.PC.OV ---
Vital Signs 10/07/23 08:50 Height 6 ft 3 in Weight 295 lb BMI 36.9 BP 137/76 Blood Pressure Location Rt brachial Position Sitting Respiration 16 Pulse 85 Pulse Source Pulse Oximeter Temp 96.2 F L Temp Source Tympanic Pulse Oximetry (%) 97 Oxygen Delivery Method Room Air Intake Visit Reasons: f/u elevated fasting glucose, HLD Intake Note: lab review Allergies No Known Allergies Allergy (Mild, Verified 10/07/23 08:47) NKA Medication List - Last Reconciled 10/07/23 by Chase Gomez MD allopurinol 100 mg PO DAILY allopurinol 300 mg PO DAILY amlodipine 10 mg PO DAILY 90 days atorvastatin 10 mg PO BEDTIME 90 days colchicine 0.6 mg PO Q OTHER DAY duloxetine 60 mg (2 x 30 mg) PO DAILY fluticasone propionate 50 mcg/actuation 1 spray intranasal BID lidocaine-prilocaine 2.5-2.5 % 1 appl topical .QD lisinopril-hydrochlorothiazide 20-12.5 mg 2 tabs PO DAILY 90 days lorazepam 1 mg PO BEDTIME PRN 30 days metoprolol succinate ER 50 mg (2 x 25 mg) PO DAILY 90 days spironolactone 25 mg PO DAILY 90 days trazodone 100 mg PO BEDTIME PRN 30 days Tobacco use date assessed: 07/06/23 Dental Screening Dental Screen Date: 07/06/23 HPI f/u elevated fasting glucose, HLD HPI Details 68 y/o male presents to f/u elevated fasting glucose, HLD. Labs drawn 10/03/23. Reviewed labs with pt. A1c 5.4%. Triglycerides 120. TC 133. LDL 74. HDL low at 35. He is on artovastatin 10mg. Blood pressure today 137/76, 85p. He is on lisinopril-hydrochlorothiazide 20-12.5mg daily, metoprolol 50mg, spironolactone 25mg daily. Has complaints of worsening neuropathy lower extremities. HPI Comments History of Present Illness Details Documentation assistance for Chase Gomez MD, was provided by Mesfin Ferrari,? Food Processor on 10/07/2023 at 9:29 AM EST. I, Dr. Gomez, have read, observed, and verified documentation. [facility] Medical History Anxiety Gout Hx of sleep apnea Psoriasis Hypertension Kidney stones History of spinal stenosis History of neuropathy Surgical History Hx of basal cell carcinoma excision Hx of lithotripsy History of dental surgery Hx of colonoscopy History of penile implant H/O ligation of vein Previous back surgery Social History Housing: House Alcohol intake: current Alcohol intake frequency: 0-2 drinks per day Patient Tobacco Use Status: Former Tobacco user Tobacco use type: Cigarette e-Cigarette/Vaping Use: Never Used Second Hand Smoke Exposure: No service: Yes Current occupational status: retired Current occupational exposures/hazards: No Cognitive needs: No Hearing needs: No Vision needs: No Questionnaire Thrive Questionnaire Date Thrive assessed: 07/06/23 BLANCO-7 AMB Questionnaire BLANCO-7 Date BLANCO - 7 assessed: 07/06/23 Source: Developed by Drs. Frankie Ashford, Corinne Oden, Phu Mitchell and colleagues, with an educational jo from [employer]. Review of Systems Const Denies chills, Denies fatigue, Denies fever(s), Denies headache(s) and Denies weakness ENT Denies dizziness and Denies headache(s) Card Denies dyspnea Resp Denies cough, Denies dyspnea, Denies wheezing and Denies other (shortness of breath) Musc Denies numbness and Denies tingling Neuro Denies dizziness, Denies headache(s), Denies numbness, Denies tingling and Denies weakness Psych Denies anxiety and Denies depression Endo Denies fatigue Aller/Immun Denies wheezing Physical exam (Primary Care) Vital Signs: Last Vital Signs Temp 96.2 F L 10/07/23 08:50 Pulse 85 10/07/23 08:50 Resp 16 10/07/23 08:50 BP 137/76 10/07/23 08:50 Pulse Ox 97 10/07/23 08:50 Oxygen Delivery Method Room Air 10/07/23 08:50 BMI result Body Mass Index 36.9 Tobacco/Smoking Status: Tobacco use Status Tobacco use date assessed 07/06/23 10/07/23 08:54 Patient Tobacco Use Status Former Tobacco user 10/07/23 08:54 Tobacco use type Cigarette 10/07/23 08:54 e-Cigarette/Vaping Use Never Used 10/07/23 08:54 Thrive Assessment: Date of Thrive Assessment Date Thrive assessed 07/06/23 10/07/23 08:54 Const General: well developed; No acute distress Nutritional Appearance: well nourished Orientation/consciousness: patient oriented x3 HENMT Head: Yes normocephalic and Yes atraumatic Eyes General: appearance normal, both eyes and all related structures Pupils: Equal, round and reactive pupils present EOM: EOMs intact bilaterally Resp Effort & Inspection: normal respiratory effort Neuro General: patient oriented x3 and gait normal Cranial nerves: Yes Equal, round and reactive pupils present Psych Affect: normal affect Assessment and Plan Assessment & Plan (1) Hyperlipidemia: Code(s): E78.5 - Hyperlipidemia, unspecified Plan: Lipids?are?controlled?on?atorvastatin. HDL?is?still?low Encouraged?exercise?as?tolerated (2) Elevated fasting glucose: Code(s): R73.01 - Impaired fasting glucose Plan: A1c?5.4%?and?steady. Continue?working?on?a?diet?low?in?sugars?and?starches (3) Essential hypertension: Code(s): I10 - Essential (primary) hypertension Plan: Blood?pressure?is?controlled?though?at?upper?limits?of?controlled?range No?changes?to?medication?today (4) Low HDL (under 40): Code(s): E78.6 - Lipoprotein deficiency Plan: As?above (5) Atherosclerosis: Code(s): I70.90 - Unspecified atherosclerosis Plan: As?above,?continue?atorvastatin (6) Neuropathy: Code(s): G62.9 - Polyneuropathy, unspecified Plan: Worsening?neuropathy. Discomfort?in?bilateral?lower?extremities.??Has?tried?duloxetine?without?any?improvement.??Has?tried?gabapentin?in?the?past?for?a?different?issue?so?this?may?still?be?of?some?value.??However,?patient?has?not?tried?Lyrica?and?we?will?give?him?a?script ?for?this. 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 Patient?is?having?difficulty?with?walking.??Advised?he?use?a?cane?which?he?has?at?home.??Filled?out?handicap?placard?today. Orders: Orders US extremity nonvascular Today M79.661 - Pain in right lower leg Medications: New pregabalin (Lyrica) 50 mg PO BEDTIME 30 days 30 caps 0RF Changed From trazodone 100 mg PO BEDTIME 30 days PRN 30 tabs 0RF sleep To trazodone 50 mg PO BEDTIME 30 days PRN 30 tabs 0RF sleep Coding Level of Care Code Est Pt Level 4 (61063) Diagnoses Hyperlipidemia E78.5 Elevated fasting glucose R73.01 Essential hypertension I10 Low HDL (under 40) E78.6 Atherosclerosis I70.90 Neuropathy G62.9
[2023-10-07 08:50] VITALS: BP 137/76; PULSE 85; RESP 16; TEMP 35.7; O2SAT 97; BMI 36.9
== END 2023-10-07 09:48 | disposition home or self-care (01) ==
PROVIDERS: PCP Family Medicine; Visit Provider Family Medicine
DX: E78.5 Hyperlipidemia, unspecified (principal); R73.01 Impaired fasting glucose; I10 Essential (primary) hypertension; E78.6 Lipoprotein deficiency; I70.90 Unspecified atherosclerosis; G62.9 Polyneuropathy, unspecified
CPT/HCPCS: 99214

== ENCOUNTER → 2023-10-13 07:55 | Outpatient (BNVA) | payer MEDICARE, SELFPAY | PROVIDERS: PCP Family Medicine; Visit Provider Student in an Organized Health Care Education/Training Program ==

== ENCOUNTER 2023-12-08 11:33 | Outpatient (AMB) | payer MEDICARE, SELFPAY ==
[2023-12-08 11:43] VITALS: BP 120/68; PULSE 72; O2SAT 98; BMI 36.6
--- NOTE | 2023-12-08 11:43 | MHC.OFFVIS ---
Vital Signs 12/08/23 11:43 Height 6 ft 3 in Weight 293 lb BMI 36.6 BP 120/68 Blood Pressure Location Lt brachial Position Sitting Pulse 72 Pulse Source Pulse Oximeter Pulse Oximetry (%) 98 Oxygen Delivery Method Room Air Intake Visit Reasons: Gout/CM Intake Note: Patient last seen by Doctor Reyes Jones on 07/11/23. Presents today for Gout follow up. Allergies No Known Allergies Allergy (Mild, Verified 12/08/23 11:47) NKA Medication List - Last Reconciled 12/08/23 by Reyes Jones MD allopurinol 100 mg PO DAILY allopurinol 300 mg PO DAILY alpha lipoic acid 600 mg PO DAILY amlodipine 10 mg PO DAILY 90 days atorvastatin 10 mg PO BEDTIME 90 days colchicine 0.3 mg (1/2 x 0.6 mg) PO Q OTHER DAY fluticasone propionate 50 mcg/actuation 1 spray intranasal BID lidocaine-prilocaine 2.5-2.5 % 1 appl topical .QD lisinopril-hydrochlorothiazide 20-12.5 mg 2 tabs PO DAILY 90 days lorazepam 1 mg PO BEDTIME PRN 30 days metoprolol succinate ER 50 mg (2 x 25 mg) PO DAILY 90 days naproxen Take with food. Take 1 tab twice daily for 1 week, then 1 tab daily for 1 week then use 1 tab once daily as needed for joint pain spironolactone 25 mg PO DAILY 90 days trazodone 50 mg PO BEDTIME PRN 30 days HPI Comments Details: 68-year-old male with gout returns for follow-up. His gout is well controlled on allopurinol 400 mg daily and colchicine 0.6 mg every other day. He took duloxetine 30 mg daily. It did not help his neuropathy much. He stated that he was recently prescribed Lyrica by his PCP. He did not take it. He not respond to Lyrica in the past. He was referred to see neurologist Dr. Kearns. Who recommended doing another EMG/NCV of his legs. Patient did not want to do the test. Did not go back for follow-up. He stated that about 2 months ago he twisted his his right ankle at home. He was having swelling at the right Achilles area. An ultrasound was ordered but by that time patient's swelling had significantly improved so he did not go for ultrasound. He continues to have some swelling and pain in that right Achilles area. Initial history: This is a 66-year-old male with a past medical history of difficult to control hypertension, gout, lumbar spine spinal stenosis s/p lumbar spine surgery, peripheral neuropathy who presents for evaluation of gout. Patient stated he was diagnosed with gout about 20 years ago when he would have attacks of painful red hot swollen toes. His uric acid was elevated and he was diagnosed with gout. He was started on allopurinol and colchicine at that time a however he stated that over the years for unknown reason the colchicine was not renewed. In 2018 patient was admitted a severe UTI related to kidney stones and had lithotripsy. Patient stated that he had neuropathy a few years back and at that time the allopurinol was discontinued however patient had a flare-up in May of 2020, his uric acid was 9.2 and he was restarted on allopurinol. Patient states that he continues to have some mild pain and swelling of his toes. [facility] Medical History (Updated 12/08/23 @ 12:38 by Reyes Jones MD) Anxiety Gout Hx of sleep apnea Psoriasis Hypertension Kidney stones History of spinal stenosis History of neuropathy Surgical History Hx of basal cell carcinoma excision Hx of lithotripsy History of dental surgery Hx of colonoscopy History of penile implant H/O ligation of vein Previous back surgery Social History Housing: House Alcohol intake: current Alcohol intake frequency: 0-2 drinks per day Patient Tobacco Use Status: Former Tobacco user Tobacco use type: Cigarette e-Cigarette/Vaping Use: Never Used Second Hand Smoke Exposure: No service: Yes Current occupational status: retired Current occupational exposures/hazards: No Cognitive needs: No Hearing needs: No Vision needs: No Review of Systems Musc Reports arthralgias, Reports joint swelling, Reports numbness and Reports tingling Neuro Reports numbness, Reports tingling and Reports paresthesias Physical Exam Vital Signs: Last Vital Signs Pulse 72 12/08/23 11:43 BP 120/68 12/08/23 11:43 Pulse Ox 98 12/08/23 11:43 Oxygen Delivery Method Room Air 12/08/23 11:43 BMI result Body Mass Index 36.6 Const General: cooperative, healthy appearing and comfortable Nutritional Appearance: obese morbidly obese Orientation/consciousness: patient oriented x3 Limitations: no limitations HEENT Head: Yes normocephalic and Yes atraumatic Resp Effort & Inspection: normal respiratory effort and able to speak in complete sentences Neuro Other: Abnormal sensation upon palpation of both feet and toes General: patient oriented x3 Extrem Other: Osteoarthritic changes of both hands with prominent Heberden's nodes Normal range of motion of shoulders Swelling and warmth at the right Achilles tendon area, minimal tenderness Normal nailfold capillaroscopy Assessment & Plan Assessment & Plan (1) Gout: Code(s): M10.9 - Gout, unspecified Category: Medical Qualifiers: Gout site: multiple sites Gout etiology: idiopathic Chronicity: chronic Presence of tophus: without tophus Qualified Code(s): M1A.09X0 - Idiopathic chronic gout, multiple sites, without tophus (tophi) Plan: This is a 68-year-old male with gout diagnosed in his 40s with bilateral painful red swollen toes, elevated uric acid, history of kidney stone (likely urate stones but not confirmed) who presents for follow-up. Gout is well controlled on allopurinol 400 mg daily and colchicine 0.6 mg every other day. Continue current meds Lower colchicine to 0.3 mg every other day Continue allopurinol 400 mg daily Labs before next visit in 6 months (2) Peripheral neuropathy: Code(s): G62.9 - Polyneuropathy, unspecified Category: Medical Qualifiers: Peripheral neuropathy type: idiopathic neuropathy, unspecified Qualified Code(s): G60.9 - Hereditary and idiopathic neuropathy, unspecified Plan: had EMG/NCV in the past and was told he has mild neuropathy Patient tried gabapentin in the past, caused side effects, Lyrica was not helpful. He took Cymbalta 30 mg daily, was not helpful, caused some GI upset so dose was not increased to 60 mg daily. Recently evaluated by Dr. Kearns. EMG/NCV was recommended. Patient decided not to go back. Try alpha lipoic acid 600 mg daily for one-month. If helpful advised patient to request refills (3) Achilles tendinitis: Code(s): M76.60 - Achilles tendinitis, unspecified leg Category: Medical Plan: Twisted his ankle at home. Already improving per patient. Still a little swollen on exam. Start naproxen 500 mg Twice daily for 1 week then 500 mg daily for 1 week then stop Plan I spent 25 minutes reviewing patient's chart, evaluating patient, ordering diagnostic workup, counseling patient and documenting in the chart Orders: Orders Comprehensive Met. Panel 6 Months M1A.X0 - Idiopathic chronic gout, multiple sites, without tophus (tophi) Uric Acid 6 Months M1A.X0 - Idiopathic chronic gout, multiple sites, without tophus (tophi) Medications: New alpha lipoic acid 600 mg PO DAILY 30 caps 0RF G60.9 - Hereditary and idiopathic neuropathy, unspecified naproxen Take with food. Take 1 tab twice daily for 1 week, then 1 tab daily for 1 week then use 1 tab once daily as needed for joint pain 30 tabs 0RF pain Changed From colchicine 0.6 mg PO Q OTHER DAY 45 tabs 1RF To colchicine 0.3 mg (1/2 x 0.6 mg) PO Q OTHER DAY 45 tabs 1RF Discontinued pregabalin (Lyrica) Discontinued Reason: Patient no longer taking 50 mg PO BEDTIME 30 caps 0RF 30 days duloxetine Discontinued Reason: Doctor's Order 60 mg (2 x 30 mg) PO DAILY 180 caps 0RF Coding Level of Care Code Est Pt Level 4 (10361) Diagnoses Idiopathic chronic gout of multiple sites without tophus .X0 Gout site: multiple sites Gout etiology: idiopathic Chronicity: chronic Presence of tophus: without tophus Idiopathic peripheral neuropathy G60.9 Peripheral neuropathy type: idiopathic neuropathy, unspecified Achilles tendinitis M76.60
== END 2023-12-08 12:11 | disposition home or self-care (01) ==
LOC: HO.RHE 11:34
PROVIDERS: PCP Family Medicine; Visit Provider Student in an Organized Health Care Education/Training Program
DX: M1A.09X0 Idiopathic chronic gout, multiple sites, without tophus (tophi) (principal); G60.9 Hereditary and idiopathic neuropathy, unspecified; M76.60 Achilles tendinitis, unspecified leg
CPT/HCPCS: 99214

== ENCOUNTER → 2023-12-08 11:33 | Outpatient (BNVA) | payer MEDICARE, SELFPAY | PROVIDERS: PCP Family Medicine; Visit Provider Student in an Organized Health Care Education/Training Program | DX: M1A.09X0 Idiopathic chronic gout, multiple sites, without tophus (tophi) (principal); G60.9 Hereditary and idiopathic neuropathy, unspecified; M76.61 Achilles tendinitis, right leg | CPT/HCPCS: 99212 ==

== ENCOUNTER 2024-04-06 11:25 | Outpatient (AMB) | payer MEDICARE, SELFPAY ==
--- NOTE | 2024-04-06 11:28 | MHC.PC.OV ---
Vital Signs 04/06/24 11:37 Height 6 ft 3 in Weight 298 lb BMI 37.2 BP 110/62 Blood Pressure Location Rt brachial Position Sitting Respiration 16 Pulse 70 Pulse Source Pulse Oximeter Temp 98.4 F Temp Source Oral Pulse Oximetry (%) 96 Oxygen Delivery Method Room Air Intake Visit Reasons: REASON FOR VISIT 3 month chorionic conditions Intake Note: 3month follow up for chronic conditions and DM Radiology Physician Assistant Required: No Allergies No Known Allergies Allergy (Mild, Verified 04/06/24 11:29) NKA Medication List - Last Reconciled 04/06/24 by Chase Gomez MD allopurinol 300 mg PO DAILY allopurinol 100 mg PO DAILY alpha lipoic acid 600 mg PO DAILY amlodipine 10 mg PO DAILY 90 days atorvastatin 10 mg PO BEDTIME 90 days colchicine 0.3 mg (1/2 x 0.6 mg) PO Q OTHER DAY fluticasone propionate 50 mcg/actuation 1 spray intranasal BID lidocaine-prilocaine 2.5-2.5 % 1 appl topical .QD lisinopril-hydrochlorothiazide 20-12.5 mg 2 tabs PO DAILY 90 days lorazepam 1 mg PO BEDTIME PRN 30 days metoprolol succinate ER 50 mg (2 x 25 mg) PO DAILY 90 days spironolactone 25 mg PO DAILY 90 days trazodone 50 mg PO BEDTIME PRN 30 days Tobacco use date assessed: 07/06/23 Dental Screening Dental Screen Date: 07/06/23 HPI REASON FOR VISIT 3 month chorionic conditions HPI Details 68 y/o male presents to f/u chronic conditions. A1c today 04/06/24 5.8%. Blood pressure today 110/62, 70p. He is on amlodipine 10mg, lisinopril-HCTZ 20-12.5mg, metoprolol 50mg, spironolactone 25mg daily. Notes he has been having difficulty losing weight due to ongoing pain/neuropathy. [facility] Medical History (Updated 04/06/24 @ 12:19 by Chase Gomez MD) Anxiety Gout Hx of sleep apnea Psoriasis Hypertension Kidney stones History of spinal stenosis History of neuropathy Surgical History Hx of basal cell carcinoma excision Hx of lithotripsy History of dental surgery Hx of colonoscopy History of penile implant H/O ligation of vein Previous back surgery Social History Housing: House Alcohol intake: current Alcohol intake frequency: 0-2 drinks per day Patient Tobacco Use Status: Former Tobacco user Tobacco use type: Cigarette e-Cigarette/Vaping Use: Never Used Second Hand Smoke Exposure: No service: Yes Current occupational status: retired Current occupational exposures/hazards: No Cognitive needs: No Hearing needs: No Vision needs: No Questionnaire PHQ-9 Over the last 2 weeks, how often have you been bothered by any of the following problems? 1. Little interest or pleasure in doing things: not at all 2. Feeling down, depressed, or hopeless: not at all 3. Trouble falling or staying asleep, or sleeping too much: not at all 4. Feeling tired or having little energy: not at all 5. Poor appetite or overeating: not at all 6. Feeling bad about yourself - or that you are a failure or have let yourself or your family down: not at all 7. Trouble concentrating on things, such as reading the newspaper or watching television: not at all 8. Moving or speaking so slowly that other people could have noticed. Or the opposite - being so fidgety or restless that you have been moving around a lot more than usual: not at all 9. Thoughts that you would be better off or of hurting yourself in some way: not at all Total score: 0 Source: Developed by Drs. Frankie Ashford, Corinne Oden, Phu Mitchell and colleagues, with an educational jo from [employer]. Thrive Questionnaire Date Thrive assessed: 03/30/24 I am a: Patient What is your living situation today?: I have a steady place to live Within the past 12 months, did the food you bought not last and you didn't have the money to get more?: Never true Within the past 12 months, did you worry whether your food would run out before you got money to buy more?: Never true Do you have trouble paying for medicines?: No Do you have trouble getting transportation to medical appointments?: No Do you have trouble paying your heating and electricity bill?: No Do you have trouble taking care of your child, family member or friend?: No Do you have trouble with day-to-day activities such as bathing, preparing meals, shopping, managing finances, etc.?: No Are you currently unemployed and looking for a job?: No Are you interested in more education?: No Please select the resources that you would like help with: None Currently or been in a relationship where the following occur: No concerns reported THRIVE Score: 0 AUDIT C Alcohol Use Questionnaire (AUDIT-C) 1. How often do you have a drink containing alcohol?: 2-3 times a week 2. How many drinks containing alcohol do you have on a typical day when you are drinking?: 1 or 2 3. How often do you have six or more drinks on one occasion?: Less than monthly Total Score: 4 BLANCO-7 AMB Questionnaire BLANCO-7 Date BLANCO - 7 assessed: 07/06/23 Feeling nervous, anxious, or on edge: 0 = Not at all Not being able to stop or control worryin = Not at all Worrying too much about different things: 0 = Not at all Trouble relaxin = Not at all Being so restless that it is hard to sit still: 0 = Not at all Becoming easily annoyed or irritable: 0 = Not at all Feeling afraid as if something awful might happen: 0 = Not at all Total BLANCO-7 score (0-4 normal; 5-9 mild; 10-14 moderate; 15-21 severe): 0 Source: Developed by Drs. Frankie Ashford, Corinne Oden, Phu Mitchell and colleagues, with an educational jo from [employer]. Review of Systems Const Denies chills, Denies fatigue, Denies fever(s), Denies headache(s) and Denies weakness ENT Denies dizziness and Denies headache(s) Card Denies dyspnea Resp Denies cough, Denies dyspnea, Denies wheezing and Denies other (shortness of breath) Musc Denies numbness and Denies tingling Neuro Denies dizziness, Denies headache(s), Denies numbness, Denies tingling and Denies weakness Psych Denies anxiety and Denies depression Endo Denies fatigue Aller/Immun Denies wheezing Physical exam (Primary Care) Vital Signs: Last Vital Signs Temp 98.4 F 04/06/24 11:37 Pulse 70 04/06/24 11:37 Resp 16 04/06/24 11:37 BP 110/62 04/06/24 11:37 Pulse Ox 96 04/06/24 11:37 Oxygen Delivery Method Room Air 04/06/24 11:37 BMI result Body Mass Index 37.2 Tobacco/Smoking Status: Tobacco use Status Tobacco use date assessed 07/06/23 04/06/24 11:40 Patient Tobacco Use Status Former Tobacco user 04/06/24 11:40 Tobacco use type Cigarette 04/06/24 11:40 e-Cigarette/Vaping Use Never Used 04/06/24 11:40 PHQ-9: PHQ-9 Score PHQ-9: Total score 0 04/06/24 11:47 Thrive Assessment: Date of Thrive Assessment Date Thrive assessed 03/30/24 04/06/24 11:40 Currently or been in a relationship where the following occur: No concerns reported Const General: well developed; No acute distress Nutritional Appearance: well nourished Orientation/consciousness: patient oriented x3 HENMT Head: Yes normocephalic and Yes atraumatic Eyes General: appearance normal, both eyes and all related structures Pupils: Equal, round and reactive pupils present EOM: EOMs intact bilaterally Resp Effort & Inspection: normal respiratory effort Neuro Other: Mild lower extremity weakness, R with dorsiflexion General: patient oriented x3 Cranial nerves: Yes Equal, round and reactive pupils present Psych Affect: normal affect Coding Level of Care Code Est Pt Level 4 (09172) Diagnoses Essential hypertension I10 Atherosclerosis I70.90 Pre-diabetes R73.03 Obesity E66.9 Polyarthralgia M25.50 Neuropathy G62.9 Spinal stenosis M48.00 Assessment & Plan Assessment & Plan (1) Essential hypertension: Code(s): I10 - Essential (primary) hypertension Category: Medical Plan: Blood?pressure?is?controlled. Goal?is?less?than?130/80 Continue?current?medication?regimen (2) Atherosclerosis: Code(s): I70.90 - Unspecified atherosclerosis Category: Medical Plan: LDL?cholesterol?close?to?goal?of?less?than?70?at?last?check. HDL?was?a?little?too?low Encouraged?diet?low?in?saturated?fats?and?cholesterol.??Will?recheck?lipids (3) Pre-diabetes: Code(s): R73.03 - Prediabetes Category: Medical Plan: A1c?has?climbed.??Now?in?pre?diabetes?range. Encouraged?a?diet?lower?in?sugars?and?starches Encouraged?exercise?and?weight?loss (4) Obesity: Code(s): E66.9 - Obesity, unspecified Category: Medical Plan: Encouraged?weight?loss?and?exercise (5) Polyarthralgia: Code(s): M25.50 - Pain in unspecified joint Category: Medical Plan: Followed?by??Ashlyn,?rheumatology (6) Neuropathy: Code(s): G62.9 - Polyneuropathy, unspecified Category: Medical Plan: Worsening?neuropathy?and?lower?extremity?weakness,?right?worse?than?left Given?there?is?some?focal?difference, suspect?this?is?secondary?to?spinal?stenosis?rather something?metabolic?like?his?blood?sugars?though?this?may?contribute. Most?recent?MRI?in?2019.??He?has?had?some?surgeries?since?then Recheck?MRI (7) Spinal stenosis: Code(s): M48.00 - Spinal stenosis, site unspecified Category: Medical Plan: As?above Orders: Orders Lipid Panel Today E78.5 - Hyperlipidemia, unspecified, Z00.00 - Encounter for general adult medical examination without abnormal findings Comprehensive Paradis. Panel Fast Today E78.5 - Hyperlipidemia, unspecified, Z00.00 - Encounter for general adult medical examination without abnormal findings Lipid Panel 1 Month E78.5 - Hyperlipidemia, unspecified, Z00.00 - Encounter for general adult medical examination without abnormal findings Hemoglobin A1c 1 Month R73.01 - Impaired fasting glucose, R73.03 - Prediabetes MR lumbar spine wo con Today G62.9 - Polyneuropathy, unspecified, M48.00 - Spinal stenosis, site unspecified, R29.898 - Other symptoms and signs involving the musculoskeletal system AMB Hemoglobin A1c Today R73.01 - Impaired fasting glucose Comprehensive Paradis. Panel Fast 1 Month E78.5 - Hyperlipidemia, unspecified, Z00.00 - Encounter for general adult medical examination without abnormal findings
[2024-04-06 11:37] VITALS: BP 110/62; PULSE 70; RESP 16; TEMP 36.9; O2SAT 96; BMI 37.2
--- OUTSIDE RECORDS SUMMARY | 2024-04-06 13:37 | XMS_ITS | Patient Health Record ---
Author Organization [facility] Address [address] [place] [id number] Care Team Providers Care Resident Care Coordinator Name Role Phone Chase Gomez Primary Care Provider Vipul Diamond Jr Unavailable ALLERGIES No Known Allergies REASON FOR REFERRAL No Information MEDICATIONS Medication SIG (Take, Route, Frequency, Duration) Notes Start Date End Date Status Multivitamin Adult - 1 tablet Orally Onc e a day for 30 day(s) Active Fluticasone Propionate 50 MCG/ACT 1 spray in each nostril Nasally Once a day for 30 day(s) Active Fish Oil 1200 MG 2 capsule Orally Onc e a day Active Metoprolol Succinate ER 25 MG Oral for 90 Active amLODIPine Besylate 10 MG Oral for 90 Active Spironolactone 25 MG Oral for 90 Active Lisinopril-hydroCHLOROthiazi de 20-12.5 MG Oral for 90 Active LORazepam 1 MG as directed Orally T wice a day Active Colchicine 0.6 MG TAKE 1 TABLET BY KAY TWICE DAILY FOR 2 WEEKS, THEN 1 TABLET DAILY Oral for 76 Active Allopurinol 300 MG 1 tablet Orally Once a day Active MiraLax (colon prep) 17 GM/SCOOP mixed with Gatorade or Crystal Light Orally begin at 5:00 p.m. the day before the procedure for 1 day 02/26/2022 Active IMMUNIZATIONS Vaccine Route Administration Date Status Comme nts Influenza Unknown 10/08/2021 Administered SOCIAL HISTORY Tobacco Use: Social History Observation Description Date Details (start date - stop date) Former Smoker NA - NA Sex Assigned At : Social History Observation Description Sex Assigned At Unknown Tobacco Use/Smoking Question Answer Notes Patient is a former smoker Patient is a former smoker How long has it been since you last smoked? > 10 years How long has it been since you last smoked? > 10 years Alcohol Screen Question Answer Notes Did you have a drink contain ing alcohol in the past year? Yes How often did you have a dri nk containing alcohol in the past year? 4 or more times a week (4 points) How many drinks did you have on a typical day when you were drinking in the past year? 1 or 2 drinks (0 point) How often did you have 6 or more drinks on one occasion in the past year? Never (0 point) Points 4 Interpretation Positive PROBLEMS Problem Type ICD Code Onset Dates Problem Status W/U Status Risk SNOMED Code Notes Problem Colon cancer screening (Z12.11) Active confirmed 312173466 Problem Personal history of colonic polyps (Z86.010) Active confirmed 363919920 Problem Encounter for other preprocedural examination (Z01.818) Active confirmed 89369739 Problem superintendent container terminal current use of diuretic (Z79.899) Active confirmed [id number] PLAN OF TREATMENT Future Test Test Name Order Date COLONOSCOPY 09/08/2016 COLONOSCOPY 02/26/2022 Insurance Providers Payer Name Payer Address Payer Phone Subscriber Number Group Number Insured Name Patient Relationship to Insured Coverage Start Date Coverage End Date [facility] [address] [place] [address] [id number] HITESH MAR Self - patient is the insured MEDICAL (GENERAL) HISTORY Medical History History ICD Code hypertension RADHA/CPAP gout anxiety Elevated cholesterol Neuropathy Colon polyps, colonoscopy 11/23, serrate d adenoma, five-year followup Surgical History Surgery Date(Month/Year) dental extractions Back surgery x2 Varicose vein stripping ESWL/cystoscopy Penile implant Basal/squamous cell carcinoma excisions
--- OUTSIDE RECORDS SUMMARY | 2024-04-06 13:37 | XMS_ITS | Clinical Summary ---
Author Organization [facility] Facility Address [address] [place] [address] Care Team Providers Care Manager Pacu Name Role Phone Chase Gomez MD Primary Care Provider Social History Tobacco Use Types Packs/Day Years Used Date Smoking Tobacco: Never Assessed Sex and Gender Information Value Date Recorded Sex Assigned at Not on file Legal Sex Male 10:21 AM EST Gender Identity Not on file Sexual Orientation Not on file Plan of Treatment Health Maintenance Due Date Last Done Comments Pneumococcal Vaccine: 65+ Years (1 of 2 - PCV) 962 Colorectal Cancer Screening: Annual FOBT 06/19/2004 Colorectal Cancer Screening: Colonoscopy 06/19/2004 Colorectal Cancer Screening: Sigmoidoscopy 06/19/2004 Hepatitis B Vaccine (1 of 3 - Risk 3-dose series) 06/07 Influenza Vaccine (#1) 2023 Insurance [facility] Care Teams Manager Pacu Relationship Specialty Start Date End Date Chase Gomez MD [address] [id number] PCP - General Family Medicine 03/08/22
--- OUTSIDE RECORDS SUMMARY | 2024-04-06 13:37 | XMS_ITS | Clinical Summary ---
Author Organization [facility] Address [address] [place] [address] Care Team Providers Care Elevator Technician Name Role Phone Unavailable Primary Care Provider Unavailabl e Social History Tobacco Use Types Packs/Day Years Used Date Smoking Tobacco: Never Assessed Sex and Gender Information Value Date Recorded Sex Assigned at Not on file Gender Identity Not on file Sexual Orientation Not on file Plan of Treatment Health Maintenance Due Date Last Done Comments Hepatitis C Screening 1955 COVID-19 Vaccine (#1) 1955 Depression Screening 1967 Preventative Health Evaluation 06/19/1973 DTap / Tdap / Td (1 - Tdap) 06/19/1974 Colon Cancer Screening (Colonoscopy) 06/19/2000 Shingrix-Zoster Vaccine (1 of 2) 06/19/2005 Fall Risk Assessment 06/19/2020 Pneumococcal Vaccine (1 of 1 - PCV) 06/19/2020 Influenza Vaccine (#1) 2023 RSV Adult > 60+ Yrs or Pregn ant (1 - 1-dose 75+ series) 06/19/2030 Hepatitis B Vaccines Aged Out No long er eligible based on patient's age to complete this topic RSV Ped < 20 months Aged Out No longe r eligible based on patient's age to complete this topic JOYCELYN ELBRON [id number]
== END 2024-04-06 12:15 | disposition home or self-care (01) ==
PROVIDERS: PCP Family Medicine; Visit Provider Family Medicine
DX: I10 Essential (primary) hypertension (principal); I70.90 Unspecified atherosclerosis; Z68.37 Body mass index [BMI] 37.0-37.9, adult; E66.9 Obesity, unspecified; R73.03 Prediabetes; M25.50 Pain in unspecified joint; G62.9 Polyneuropathy, unspecified; M48.00 Spinal stenosis, site unspecified

== ENCOUNTER → 2024-04-06 11:25 | Outpatient (BNVA) | payer MEDICARE, SELFPAY | PROVIDERS: PCP Family Medicine; Visit Provider Family Medicine | DX: I10 Essential (primary) hypertension (principal); I70.90 Unspecified atherosclerosis; R73.03 Prediabetes; E66.9 Obesity, unspecified; M25.50 Pain in unspecified joint; G62.9 Polyneuropathy, unspecified; M48.00 Spinal stenosis, site unspecified | CPT/HCPCS: 83036; 99212 ==

== ENCOUNTER 2024-05-25 09:09 | Outpatient (REF) | payer MEDICARE, SELFPAY ==
--- OUTSIDE RECORDS SUMMARY | 2024-05-25 09:38 | XMS_ITS | Clinical Summary ---
Author Organization [facility] Address [address] [place] [address] Care Team Providers Care Quality Tech Name Role Phone Unavailable Primary Care Provider [...] patient's age to complete this topic JOYCELYN LEBRON [id number]
--- OUTSIDE RECORDS SUMMARY | 2024-05-25 09:38 | XMS_ITS | Clinical Summary ---
Author Organization [facility] Facility Address [address] [place] [address] Care Team Providers Care Radiologic Tech Name Role Phone Chase Gomez MD Primary Care Provider Social History Tobacco Use Types Packs/Day Years Used Date Smoking Tobacco: Never Assessed Sex and Gender Information Value Date Recorded Sex Assigned at Not on file Legal Sex Male 10:21 AM EST Gender Identity Not on file Sexual Orientation Not on file Plan of Treatment Health Maintenance Due Date Last Done Comments Pneumococcal Vaccine: 50+ Years (1 of 2 - PCV) 975 Colorectal Cancer Screening: Annual FOBT 06/19/2004 Colorectal Cancer Screening: Colonoscopy 06/19/2004 Colorectal Cancer Screening: Sigmoidoscopy 06/19/2004 Hepatitis B Vaccine (1 of 3 - Risk 3-dose series) 06/07 Influenza Vaccine (Season Ended) 2024 Insurance [facility] Care Teams Radiologic Tech Relationship Specialty Start Date End Date Chase Gomez MD [address] [id number] PCP - General Family Medicine 03/08/22
--- OUTSIDE RECORDS SUMMARY | 2024-05-25 09:38 | XMS_ITS | Patient Health Record ---
Author Organization [facility] Address [address] [place] [address] Care Team Providers Care Tai Chi Instructor Name Role Phone Chase Gomez Primary Care Provider Vipul Diamond Jr Unavailable Allergies No Known Allergies Reason For Referral No Information Medications Medication SIG (Take, Route, Frequency, Duration) Notes [...] the procedure for 1 day 02/26/2022 Active Immunizations Vaccine Route Administration Date Status Comme nts Influenza Unknown 10/08/2021 Administered Social History Tobacco Use: Social History Observation Description Date Details (start date - stop date) Former Smoker NA - NA Tobacco Use/Smoking Question Answer Notes Patient is [...] Never (0 point) Points 4 Interpretation Positive Problems Problem Type SNOMED Code ICD Code Onset Dates Problem Status W/U Status Risk Notes Problem 673353070 Colon cancer screening (Z12.11) Active confirmed Problem 680071152 Personal history of colonic polyps (Z86.010) Active confirmed Problem 62965859 Encounter for other preprocedural examination (Z01.818) Active confirmed Problem [id number] shelter current use of diuretic (Z79.899) Active confirmed Plan Of Treatment Future Test Test Name Order Date COLONOSCOPY 09/08/2016 COLONOSCOPY 02/26/2022 Insurance Providers Payer Name Payer Address Payer Phone Subscriber Number Group Number Insured Name Patient Relationship to Insured Coverage Start Date Coverage End Date [facility] [address] [place] [address] [phone] [id number] HITESH MAR Self - patient is the insured Medical (General) History Medical History History ICD Code hypertension RADHA/CPAP gout anxiety Elevated cholesterol Neuropathy Colon polyps, colonoscopy 11/23, serrate d adenoma, five-year followup Surgical History Surgery Date(Month/Year) dental extractions Back surgery x2 Varicose vein stripping ESWL/cystoscopy Penile implant Basal/squamous cell carcinoma excisions
[2024-05-25 10:15] LABS: Estimated Average Glucose 114 mg/dL; Hemoglobin A1C 148.4286 umol/L; Hemoglobin A1c % 5.6 % (<6.0); Total Hemoglobin (HGBA1C) 3924.6172 umol/L
[2024-05-25 11:04] LABS: Uric Acid 4.7 mg/dL (3.4-7.0)
[2024-05-25 11:22] LABS: Alanine Aminotransferase 40 U/L (0-40); Albumin Level 4.2 g/dL (3.5-5.0); Anion Gap 15 (12-20); Aspartate Amino Transferase 35 U/L (5-37); Blood Urea Nitrogen 25 mg/dL (9-16); Calcium 9.2 mg/dL (8.4-10.2); Carbon Dioxide 21 mmol/L (22-29); Chloride 108 mmol/L (96-108); Cholesterol 135 mg/dL (<200); Estimated Glomerular Filt Rate > 60; Glucose Fasting 119 mg/dL (60-99); HDL Cholesterol 33 mg/dL (>40); LDL Cholesterol Calculated 70 mg/dL (<100); Potassium 4.8 mmol/L (3.3-5.1); Sodium 139 mmol/L (135-145); Total Protein 6.8 g/dL (6.5-8.0); Triglycerides 160 mg/dL (<150)
[2024-05-25 19:45] LABS: Alkaline Phosphatase 69 U/L (39-117)
== END 2024-05-25 09:10 | disposition home or self-care (01) ==
LOC: HO.HMGCLDS 09:09
PROVIDERS: PCP Family Medicine; Referring Provider Student in an Organized Health Care Education/Training Program; Visit Provider Family Medicine
DX: Z00.00 Encounter for general adult medical examination without abnormal findings (principal); E78.5 Hyperlipidemia, unspecified; R73.01 Impaired fasting glucose; R73.03 Prediabetes; M1A.09X0 Idiopathic chronic gout, multiple sites, without tophus (tophi)
CPT/HCPCS: 36415; 80053; 80061; 83036; 84550

== ENCOUNTER 2024-06-06 09:43 | Outpatient (AMB) | payer MEDICARE, SELFPAY ==
--- NOTE | 2024-06-06 09:56 | MHC.OFFVIS ---
Vital Signs 06/06/24 10:00 Height 6 ft 3 in Weight 297 lb BMI 37.1 BP 160/80 H Blood Pressure Location Lt brachial Position Sitting Pulse 82 Pulse Source Pulse Oximeter Pulse Oximetry (%) 98 Oxygen Delivery Method Room Air Intake Visit Reasons: Gout Intake Note: Patient presents for Gout follow up. Allergies No Known Allergies Allergy (Mild, Verified 06/06/24 09:59) NKA Medication List - Last Reconciled 06/06/24 by Vivian Palumbo MD allopurinol 300 mg PO DAILY allopurinol 100 mg PO DAILY amlodipine 10 mg PO DAILY 90 days atorvastatin 10 mg PO BEDTIME 90 days colchicine 0.3 mg (1/2 x 0.6 mg) PO Q OTHER DAY fluticasone propionate 50 mcg/actuation 1 spray intranasal BID lidocaine-prilocaine 2.5-2.5 % 1 appl topical .QD lisinopril-hydrochlorothiazide 20-12.5 mg 2 tabs PO DAILY 90 days lorazepam 1 mg PO BEDTIME PRN 30 days metoprolol succinate ER 50 mg (2 x 25 mg) PO DAILY 90 days spironolactone 25 mg PO DAILY 90 days trazodone 50 mg PO BEDTIME PRN 30 days HPI Comments Details: Patient is a 68-year-old male with hypertension, hyperlipidemia, prediabetes, peripheral neuropathy non crystal proven gout complicated by presumed uric acid kidney stones here today for follow up Interval History: Patient last seen 12/08/[address] Jones. At that time he was well controlled on allopurinol 400 mg daily and colchicine 0.6 mg every other day. His colchicine was lower 0.3 mg every other day. He was also complaining of peripheral neuropathy and was given a trial of alpha lipoic acid Alpha lipoic acid not effective No further gout flares Rheumatologic History: Gout diagnosed in his 40s with bilateral painful red swollen toes, elevated uric acid, history of kidney stone (likely urate stones but not confirmed) had EMG/NCV in the past and was told he has mild neuropathy Patient tried gabapentin in the past, caused side effects, Lyrica was not helpful. He took Cymbalta 30 mg daily, was not helpful, caused some GI upset so dose was not increased to 60 mg daily. Recently evaluated by Dr. Kearns. EMG/NCV was recommended. Patient decided not to go back. Current Rheumatology Medication(s): Allopurinol 300 mg daily Allopurinol 100 mg daily Colchicine 0.3 mg every other day [facility] Medical History (Updated 04/06/24 @ 12:19 by Chase Gomez MD) Anxiety Gout Hx of sleep apnea Psoriasis Hypertension Kidney stones History of spinal stenosis History of neuropathy Surgical History Hx of basal cell carcinoma excision Hx of lithotripsy History of dental surgery Hx of colonoscopy History of penile implant H/O ligation of vein Previous back surgery Social History Housing: House Alcohol intake: current Alcohol intake frequency: 0-2 drinks per day Patient Tobacco Use Status: Former Tobacco user Tobacco use type: Cigarette e-Cigarette/Vaping Use: Never Used Second Hand Smoke Exposure: No service: Yes Current occupational status: retired Current occupational exposures/hazards: No Cognitive needs: No Hearing needs: No Vision needs: No Review of Systems Const Details: Review of Systems Constitutional: Denies fever, chills, weight loss ENT: Denies vision changes, eye pain or eye redness, dental caries, dry mouth GI: Denies nausea, vomiting, diarrhea, abdominal pain, change in BM Pulm: Denies SOB, LOPES, hemoptysis, wheezing Cards: Denies chest pain, palpitations Skin: Denies Raynaud's, rash, nail changes, photosensitivity, HISTORICAL MANUSCRIPTS CURATOR: Denies headaches, weakness, paresthesias, recurrent falls MSK: as per HPI All other systems reviewed and are unremarkable except noted above Physical Exam Vital Signs: Last Vital Signs Pulse 82 06/06/24 10:00 BP 160/80 H 06/06/24 10:00 Pulse Ox 98 06/06/24 10:00 Oxygen Delivery Method Room Air 06/06/24 10:00 BMI result Body Mass Index 37.1 Vital signs reviewed Physical Examination CONSTITUITIONAL Patient alert and cooperative. Well appearing and in no apparent painful distress HEENT Conjunctiva and sclera clear. ?Pupils equal round and reactive to light. ?No lymphadenopathy. ? CHEST/RESPIRATORY SYSTEM Normal respiratory effort and able to speak in complete sentences. ?Clear to auscultation bilaterally. ?No crackles, rales, rhonchi, wheezes heard. CARDIAC SYSTEM Regular rate and rhythm. ?S1 and S2 heard no murmurs. ?Radial pulses intact bilaterally MSK Hands: ?Able to make a fist. No synovitis noted to the MCPs, PIPs or DIPs. ?No tenderness to palpation of these joints. No deformities noted. ? Wrists: ?Full range of motion at the wrists without pain. ?No tenderness to palpation or synovitis noted to the wrists. Elbows: Full range of motion without pain. No tenderness, weakness, swelling, increased warmth or erythema. Shoulders: Full range of active range of motion without pain. No tenderness, weakness, swelling, increased warmth or erythema. Knees: ?Full range of motion. ?No tenderness, swelling, increased warmth or erythema.?No effusion or crepitations Ankles: Full range of motion. ?No tenderness, swelling, increased warmth or erythema.? Feet: ?Negative squeeze test. ?No tenderness to palpation or swelling of the MTPs. Increased sensitivity to touch of the bilateral feet Tender points:?No tenderness to palpation of the bilateral trapezius, supraspinatus, greater trochanters, anterior costochondral junctions, bilateral gluteal areas, bilateral suboccipital muscle insertions SKIN Skin intact without rashes. No tophi Results Reviewed Results Reviewed: Laboratory Tests 03/17/23 05/25/24 09:10 09:25 WBC 8.1 RBC 4.93 Hgb 15.1 Hct 45.0 Plt Count 227 Sodium 139 Potassium 4.8 Chloride 108 Carbon Dioxide 21 L BUN 25 H Creatinine 0.95 Uric Acid 4.7 ALT 40 Alkaline Phosphatase 69 Total Protein 6.8 Assessment & Plan Assessment & Plan (1) Gout: Code(s): M10.9 - Gout, unspecified Category: Medical Qualifiers: Gout site: multiple sites Gout etiology: idiopathic Chronicity: chronic Presence of tophus: without tophus Qualified Code(s): M1A.09X0 - Idiopathic chronic gout, multiple sites, without tophus (tophi) Plan: #Gout Patient is a 68-year-old male with non crystal proven non tophaceous gout here today for follow up. Currently in remission on allopurinol 400 mg a day with uric acid at goal at 4.7. Plan - Continue allopurinol 400mg daily: 300mg + 100mg tablets - Colchicine 0.3mg every other day - RTC 1 year - Labs before visit: CMP, ESR, CRP, UA (2) Neuropathy: Code(s): G62.9 - Polyneuropathy, unspecified Category: Medical Plan: #Neuropathy Patient has EMG proven mild neuropathy Unable to tolerate pregabalin and gabapentin No effect of alpha lipoic acid Follow with neurology (3) Encounter for monitoring allopurinol therapy: Code(s): Z51.81 - Encounter for therapeutic drug level monitoring; Z79.899 - Other half-way (current) drug therapy Plan: #Long-term Current Use of Allopurinol Risks and benefits of allopurinol discussed with patient Benefits include decreased gout flares, remission of gout and reduction of tophi Risks include allopurinol hypersensitivity syndrome which is a severe cutaneous adverse reaction associated with allopurinol use particularly in patients who are HLA B*5801 positive, increased transaminases, GI upset including diarrhea, nausea and vomiting, and other dermatologic manifestations. 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 Benefits include reduced occurrence of flares while we titrate and regulate his uric acid on allopurinol and other uric acid lowering medications. ? Risks include worsening myalgias especially if on statins and GI upset including diarrhea Plan I spent 30 minutes reviewing the record and labs, taking a history, examining the patient, discussing the treatment plan, ordering diagnostic work up and documenting in the medical record Orders: Orders Comprehensive Met. Panel 1 Year M1A.09X0 - Idiopathic chronic gout, multiple sites, without tophus (tophi) C Reactive Protein 1 Year M1A.09X0 - Idiopathic chronic gout, multiple sites, without tophus (tophi) Erythrocyte Sedimentation Rate 1 Year M1A.09X0 - Idiopathic chronic gout, multiple sites, without tophus (tophi) Uric Acid 1 Year M1A.09X0 - Idiopathic chronic gout, multiple sites, without tophus (tophi) Medications: Changed From colchicine 0.3 mg (1/2 x 0.6 mg) PO Q OTHER DAY 24 tabs 1RF M1A.09X0 - Idiopathic chronic gout, multiple sites, without tophus (tophi) To colchicine 0.3 mg (1/2 x 0.6 mg) PO Q OTHER DAY 90 days 23 tabs 3RF M1A.09X0 - Idiopathic chronic gout, multiple sites, without tophus (tophi) Refilled allopurinol 300 mg PO DAILY 90 tabs 3RF M1A.09X0 - Idiopathic chronic gout, multiple sites, without tophus (tophi) allopurinol 100 mg PO DAILY 90 tabs 3RF M1A.09X0 - Idiopathic chronic gout, multiple sites, without tophus (tophi) Discontinued alpha lipoic acid Discontinued Reason: Patient no longer taking 600 mg PO DAILY 30 caps 0RF G60.9 - Hereditary and idiopathic neuropathy, unspecified Coding Level of Care Code Est Pt Level 4 (76696) Complex EM visit Add On G2211 Diagnoses Idiopathic chronic gout of multiple sites without tophus M1A.09X0 Gout site: multiple sites Gout etiology: idiopathic Chronicity: chronic Presence of tophus: without tophus Neuropathy G62.9 Encounter for monitoring allopurinol therapy Z51.81; Z79.899 On colchicine therapy Z79.899
[2024-06-06 10:00] VITALS: BP 160/80; PULSE 82; O2SAT 98; BMI 37.1
--- OUTSIDE RECORDS SUMMARY | 2024-06-06 10:32 | XMS_ITS | Clinical Summary ---
Author Organization [facility] Facility Address [address] [place] [address] Care Team Providers Care Certified Medication Aide Name Role Phone Chase Gomez MD Primary [...] 06/07 Influenza Vaccine (Season Ended) 2024 Insurance [facility] Care Teams Certified Medication Aide Relationship Specialty Start Date End Date Chase Gomez MD [address] [phone] PCP - General Family Medicine 03/08/22
--- OUTSIDE RECORDS SUMMARY | 2024-06-06 10:32 | XMS_ITS | Clinical Summary ---
Author Organization [facility] Address [address] [place] [address] Care Team Providers Care Research Asst Name Role Phone Unavailable Primary Care Provider [...] age to complete this topic [place]YCELYN LEBRON [id number]
== END 2024-06-06 10:24 | disposition home or self-care (01) ==
LOC: HO.RHE 09:44
PROVIDERS: PCP Family Medicine; Visit Provider Student in an Organized Health Care Education/Training Program
DX: M1A.09X0 Idiopathic chronic gout, multiple sites, without tophus (tophi) (principal); G62.9 Polyneuropathy, unspecified; Z51.81 Encounter for therapeutic drug level monitoring; Z79.899 Other long term (current) drug therapy
CPT/HCPCS: 99214; G2211

== ENCOUNTER → 2024-06-06 09:43 | Outpatient (BNVA) | payer MEDICARE, SELFPAY | PROVIDERS: PCP Family Medicine; Visit Provider Student in an Organized Health Care Education/Training Program | DX: M1A.09X0 Idiopathic chronic gout, multiple sites, without tophus (tophi) (principal); G62.9 Polyneuropathy, unspecified; Z51.81 Encounter for therapeutic drug level monitoring; Z79.899 Other long term (current) drug therapy | CPT/HCPCS: 99212 ==

== ENCOUNTER 2024-07-06 11:08 | Outpatient (AMB) | payer MEDICARE, SELFPAY ==
--- NOTE | 2024-07-06 11:19 | MHC.PC.OV ---
Vital Signs 07/06/24 11:21 Height 6 ft 3 in Weight 299 lb BMI 37.4 BP 132/78 Blood Pressure Location Lt brachial Position Sitting Respiration 16 Pulse 75 Pulse Source Pulse Oximeter Temp 97.7 F Temp Source Oral Pulse Oximetry (%) 96 Oxygen Delivery Method Room Air Intake Visit Reasons: f/u pre-diabetes Intake Note: patient scheduled is for A1c follow-up. Allergies No Known Allergies Allergy (Mild, Verified 07/06/24 11:19) NKA Tobacco use date assessed: 07/06/24 Fall risk assessment: No Falls in past year Dental Screening Dental Screen Date: 07/06/24 Did you have a dental visit in the last 12 months?: Yes Did you have a dental problem in the last 6 months where you did not have access to dental care?: No HPI f/u pre-diabetes HPI Details 69 y/o male presents to f/u HTN, prediabetes, HLD in pt with atherosclerosis. Also f/u neuropathy which appears scondary to spinal stenosis. Labs drawn 05/25/24. Reviewed labs with pt. A1c 5.6%. Triglycerides 160. TC 135. LDL 70. HDL low at 33. [facility] Medical History (Updated 04/06/24 @ 12:19 by Chase Gomez MD) Anxiety Gout Hx of sleep apnea Psoriasis Hypertension Kidney stones History of spinal stenosis History of neuropathy Surgical History Hx of basal cell carcinoma excision Hx of lithotripsy History of dental surgery Hx of colonoscopy History of penile implant H/O ligation of vein Previous back surgery Social History Housing: House Alcohol intake: current Alcohol intake frequency: 0-2 drinks per day Patient Tobacco Use Status: Former Tobacco user Tobacco use type: Cigarette e-Cigarette/Vaping Use: Never Used Second Hand Smoke Exposure: No service: Yes Current occupational status: retired Current occupational exposures/hazards: No Cognitive needs: No Hearing needs: No Vision needs: No Questionnaire Thrive Questionnaire Date Thrive assessed: 03/30/24 I am a: Patient What is your living situation today?: I have a steady place to live Within the past 12 months, did the food you bought not last and you didn't have the money to get more?: Never true Within the past 12 months, did you worry whether your food would run out before you got money to buy more?: Never true Do you have trouble paying for medicines?: No Do you have trouble getting transportation to medical appointments?: No Do you have trouble paying your heating and electricity bill?: No Do you have trouble taking care of your child, family member or friend?: No Do you have trouble with day-to-day activities such as bathing, preparing meals, shopping, managing finances, etc.?: No Are you currently unemployed and looking for a job?: No Are you interested in more education?: No Please select the resources that you would like help with: None Currently or been in a relationship where the following occur: No concerns reported THRIVE Score: 0 BLANCO-7 AMB Questionnaire BLANCO-7 Date BLANCO - 7 assessed: 07/06/23 Source: Developed by Drs. Frankie Ashford, Corinne Oden, Phu Mitchell and colleagues, with an educational jo from [employer]. Physical exam (Primary Care) Vital Signs: Last Vital Signs Temp 97.7 F 07/06/24 11:21 Pulse 75 07/06/24 11:21 Resp 16 07/06/24 11:21 BP 132/78 07/06/24 11:21 Pulse Ox 96 07/06/24 11:21 Oxygen Delivery Method Room Air 07/06/24 11:21 BMI result Body Mass Index 37.4 Tobacco/Smoking Status: Tobacco use Status Tobacco use date assessed 07/06/24 07/06/24 11:26 Patient Tobacco Use Status Former Tobacco user 07/06/24 11:26 Tobacco use type Cigarette 07/06/24 11:26 e-Cigarette/Vaping Use Never Used 07/06/24 11:26 Thrive Assessment: Date of Thrive Assessment Date Thrive assessed 03/30/24 07/06/24 11:26 Currently or been in a relationship where the following occur: No concerns reported Coding Level of Care Code Est Pt Level 4 (98380) Diagnoses Essential hypertension I10 Pre-diabetes R73.03 Atherosclerosis I70.90 Hyperlipidemia E78.5 Spinal stenosis M48.00 Screening for prostate cancer Z12.5 Assessment & Plan Assessment & Plan (1) Essential hypertension: Code(s): I10 - Essential (primary) hypertension Category: Medical Plan: Blood?pressure?is?fairly?well?controlled.??Goal?is?less?than?130/80 Continue?current?medications Encouraged?diet?low?in?salt/sodium Encouraged?exercise?and?weight?loss (2) Pre-diabetes: Code(s): R73.03 - Prediabetes Category: Medical Plan: A1c?5.7%?today.??Stable Encouraged?him?to?work?on?a?diet?lower?in?sugars?and?starches Encouraged?exercise?and?weight?loss (3) Atherosclerosis: Code(s): I70.90 - Unspecified atherosclerosis Category: Medical Plan: Working?on?keeping?his?cholesterol?levels?well?controlled. LDL?is?well?controlled?however?his?HDL?is?too?low?and?triglycerides?have?risen Lifestyle?changes?as?recommended?above Will?switch?atorvastatin?to?rosuvastatin (4) Hyperlipidemia: Code(s): E78.5 - Hyperlipidemia, unspecified Category: Medical Plan: As?above (5) Spinal stenosis: Code(s): M48.00 - Spinal stenosis, site unspecified Category: Medical Plan: Had?ordered?an?MRI?but?patient?says?he?is?not?been?called Will?ask?the?office?to?look?into?this?and?help?get?him?scheduled. (6) Screening for prostate cancer: Code(s): Z12.5 - Encounter for screening for malignant neoplasm of prostate Category: Medical Plan: Reviewed?PSA?levels?with?patient These?have?remained?within?range?and?stable Due?to?recheck?this-ordered Orders: Orders Comprehensive [place]. Panel Fast Today Z00.00 - Encounter for general adult medical examination without abnormal findings Microalbumin, Random (w Creat) Today I10 - Essential (primary) hypertension Prostate Specific Antigen Scr Today Z12.5 - Encounter for screening for malignant neoplasm of prostate Lipid Panel Today Z00.00 - Encounter for general adult medical examination without abnormal findings UA CC w/rflx Micro + Cult Today Z00.00 - Encounter for general adult medical examination without abnormal findings Complete Blood Count Auto Diff Today Z00.00 - Encounter for general adult medical examination without abnormal findings TSH reflex Free T4 Today Z00.00 - Encounter for general adult medical examination without abnormal findings Medications: New rosuvastatin 10 mg PO DAILY 90 days 90 tabs 3RF Discontinued atorvastatin Discontinued Reason: Doctor's Order 10 mg PO BEDTIME 90 days 90 tabs 3RF
[2024-07-06 11:21] VITALS: BP 132/78; PULSE 75; RESP 16; TEMP 36.5; O2SAT 96; BMI 37.4
--- OUTSIDE RECORDS SUMMARY | 2024-07-06 12:04 | XMS_ITS | Patient Health Record ---
Author Organization [facility] Address [address] [place] [address] Care Team Providers Care Combustion Analyst Name Role Phone Chase Gomez Primary Care Provider Vipul Diamond Jr Unavailable [phone] Allergies No Known Allergies Reason For Referral [...] Problem Status W/U Status Risk Notes Problem 047538603 Colon cancer screening (Z12.11) Active confirmed Problem 125574001 Personal history of colonic polyps (Z86.010) Active confirmed Problem 62602371 Encounter for other preprocedural examination (Z01.818) Active confirmed Problem [id number] long-term current use of diuretic (Z79.899) Active confirmed Plan Of Treatment Future Test Test Name Order Date COLONOSCOPY 09/08/2016 COLONOSCOPY 02/26/2022 Insurance Providers Payer Name Payer Address Payer Phone Subscriber Number Group Number Insured Name Patient Relationship to Insured Coverage Start Date Coverage End Date [facility] [address] [place] [address] [phone] [id number] HITESH MAR Self - patient is the insured Medical (General) History Medical History History ICD Code hypertension RADHA/CPAP gout anxiety Elevated cholesterol Neuropathy Colon polyps, colonoscopy 11/23, serrate d adenoma, five-year followup Surgical History Surgery Date(Month/Year) dental extractions Back surgery x2 Varicose vein stripping ESWL/cystoscopy Penile implant Basal/squamous cell carcinoma excisions
== END 2024-07-06 12:35 | disposition home or self-care (01) ==
LOC: HO.HMCFM 11:09
PROVIDERS: PCP Family Medicine; Visit Provider Family Medicine
DX: I10 Essential (primary) hypertension (principal); R73.03 Prediabetes; I70.90 Unspecified atherosclerosis; E78.5 Hyperlipidemia, unspecified; M48.00 Spinal stenosis, site unspecified; Z12.5 Encounter for screening for malignant neoplasm of prostate

== ENCOUNTER → 2024-07-06 11:08 | Outpatient (BNVA) | payer MEDICARE, SELFPAY | PROVIDERS: PCP Family Medicine; Visit Provider Family Medicine | DX: R73.03 Prediabetes (principal); I10 Essential (primary) hypertension; I70.90 Unspecified atherosclerosis; E78.5 Hyperlipidemia, unspecified; M48.00 Spinal stenosis, site unspecified | CPT/HCPCS: 83036; 99212 ==

== ENCOUNTER 2024-10-12 09:43 | Outpatient (REF) | payer MEDICARE, SELFPAY ==
--- OUTSIDE RECORDS SUMMARY | 2024-10-12 10:31 | XMS_ITS | Clinical Summary ---
Author Organization [facility] Address [address] [place] [address] Care Team Providers Care Quill Skinner Name Role Phone Unavailable Primary Care Provider [...] 1 - PCV) 06/19/2020 Influenza Vaccine (#1) 2024 RSV Adult > 60+ Yrs or Pregn ant (1 - 1-dose 75+ series) 06/19/2030 Hepatitis B Vaccines Aged Out No long er eligible based on patient's age to complete this topic RSV Ped < 20 months Aged Out No longe r eligible based on patient's age to complete this topic JOYCELYN LEBRON [id number]
--- OUTSIDE RECORDS SUMMARY | 2024-10-12 10:31 | XMS_ITS | Patient Health Record ---
Author Organization [facility] Address [address] [facility] [address] Care Team Providers Care Kitchenwhere Maker Name Role Phone Dena Benson Primary Care Provider Ino Lund Unavailable [phone] Reason For Referral No Information Medications Medication SIG (Take, Route, Frequency, Duration) Notes Start Date End Date Status Cartia XT 120 MG Oral; Duration: 90 Not-Taking LORazepam 1 MG (Schedule IV Drug) Oral; Duration: 90 Active Allopurinol 300 MG 1 tablet Orally Once a day; Duration: 30 day(s) Not-Taking Iodosorb 0.9 % as directed External ly Apply to ulceration daily with dry sterile dressing; Duration: 30 days 05/16/2018 Active buPROPion HCl ER (XL) 150 MG 1 tablet in the morning Orally Once a day; Duration: 30 day(s) Unknown Cephalexin 500 MG 1 capsule Orally sonja ry 8 hrs; Duration: 10 day(s) Active Levitra Unknown Lisinopril 10 MG Oral; Duration: 90 Active Gabapentin 400 MG 1 capsule Orally qd hs; Duration: 30 days 10/29/2014 Not-Taking Social History Tobacco Use: Social History Observation Description Date Details (start date - stop date) Former Smoker NA - NA Tobacco Use/Smoking Question Answer Notes Are you a: former smoker Additional Findings: Tobacco Non-User Current no n-smoker Alcohol Screen Question Answer Notes Did you have a drink containing alcohol in the p ast year? Yes Points 0 Interpretation Negative Tobacco use other than smoking: Question Answer Notes Are you an other tobacco user? No Problems Problem Type SNOMED Code ICD Code Onset Dates Problem Status W/U Status Risk Notes Problem Peripheral neuropathy of bilateral lower limbs (disorder) ([id number] 108) Neuropathy involving both lower extremities (G57.93) Active confirmed Plan Of Treatment Pending Test Test Name Order Date X ray : Foot, left 2V 10/23/2012 X ray : Foot, right 2V 10/23/2012 [id number] SKIN/TISSUE 05/16/2018 Insurance Providers Payer Name Payer Address Payer Phone Subscriber Number Group Number Insured Name Patient Relationship to Insured Coverage Start Date Coverage End Date [facility] [address] [place] [address] [id number] [phone] Jacob Monteiro Self - patient is the insured Medical (General) History Medical History History ICD Code Gout Hypertension Numbness - Neuropathy unkown origin Measles Mumps Chicken pox Surgical History Surgery Date(Month/Year) left foot surgery 2007 colonoscopy 2012 Back 2017 R & L leg 2018
--- OUTSIDE RECORDS SUMMARY | 2024-10-12 10:31 | XMS_ITS | Clinical Summary ---
Author Organization [facility] Address [address] [place] [address] Care Team Providers Care Law Firm Receptionist Name Role Phone Chase Gomez MD Primary [...] Risk 3-dose series) 06/07 Influenza Vaccine (#1) [address] [facility] Care Teams Law Firm Receptionist Relationship Specialty Start Date End Date Chase Gomez MD [address] [phone] PCP - General Family Medicine 03/08/22
--- OUTSIDE RECORDS SUMMARY | 2024-10-12 10:31 | XMS_ITS | Patient Health Record ---
Author Organization [facility] Address [address] [place] [address] Care Team Providers Care Filter Tip Inspector Name Role Phone Chase Gomez Primary Care [...] Problem Status W/U Status Risk Notes Problem [id number] Colon cancer screening (Z12.11) Active confirmed Problem 333996883 Personal history of colonic polyps (Z86.010) Active confirmed Problem 25759166 Encounter for other preprocedural examination (Z01.818) Active confirmed Problem [id number] detention current use of diuretic (Z79.899) Active confirmed Plan Of Treatment Future Test Test Name Order Date COLONOSCOPY 09/08/2016 COLONOSCOPY 02/26/2022 Insurance Providers Payer Name Payer Address Payer Phone Subscriber Number Group Number Insured Name Patient Relationship to Insured Coverage Start Date Coverage End Date [facility] [address] [place] [address] [id number] HITESH MAR Self - patient is the insured Medical (General) History Medical History History ICD Code hypertension RADHA/CPAP gout anxiety Elevated cholesterol Neuropathy Colon polyps, colonoscopy 11/23, serrate d adenoma, five-year followup Surgical History Surgery Date(Month/Year) dental extractions Back surgery x2 Varicose vein stripping ESWL/cystoscopy Penile implant Basal/squamous cell carcinoma excisions
[2024-10-12 13:14] LABS: MANUAL DIFF FLAG NO
[2024-10-12 13:22] LABS: Appearance Urine Clear; Glucose Urine UA Negative (Negative); PH 5.5 (5.0-9.0); Specific Gravity - Urine 1.020 (1.005-1.025)
[2024-10-12 13:30] LABS: Hematocrit 45.2 % (42.0-52.0); Hemoglobin 15.2 g/dl (14.0-18.0); Imm Gran Abs Auto 0.04 X10*3/uL (0.00-0.03); Imm Gran Pct Auto 0.5 % (0.0-0.4); Lymphocytes Absolute Auto 1.8 X10*3/uL (1.2-4.9); Mean Corpuscular HGB Conc 33.6 g/dl (31.0-36.0); Mean Corpuscular Hemoglobin 30.9 pg (27.0-33.0); Mean Corpuscular Volume 91.9 fL (80.0-98.0); NRBC Abs Auto 0.000 X10*3/uL (0.0-0.012); NRBC Pct Auto 0.0 /100WBC (0.0-0.2); Platelet Count 193 X10*3/uL (160-400); Red Blood Count 4.92 X10*6/uL (4.60-5.80); White Blood Count 8.2 X10*3/uL (4.8-10.8)
[2024-10-12 13:49] LABS: Alanine Aminotransferase 40 U/L (0-40); Albumin Level 4.8 g/dL (3.5-5.0); Alkaline Phosphatase 60 U/L (39-117); Anion Gap 13 (12-20); Aspartate Amino Transferase 34 U/L (5-37); Blood Urea Nitrogen 24 mg/dL (9-16); Calcium 9.1 mg/dL (8.4-10.2); Carbon Dioxide 24 mmol/L (22-29); Chloride 106 mmol/L (96-108); Cholesterol 114 mg/dL (<200); Estimated Glomerular Filt Rate > 60; HDL Cholesterol 34 mg/dL (>40); Potassium 4.5 mmol/L (3.3-5.1); Sodium 138 mmol/L (135-145); Total Protein 6.8 g/dL (6.5-8.0); Triglycerides 138 mg/dL (<150)
[2024-10-12 14:02] LABS: Microalbum/Creatinine Ratio Ur 5.2 ug/mg cr (<30)
== END 2024-10-12 09:44 | disposition home or self-care (01) ==
LOC: HO.HMGCLDS 09:43
PROVIDERS: PCP Family Medicine; Visit Provider Family Medicine
DX: Z00.00 Encounter for general adult medical examination without abnormal findings (principal); Z12.5 Encounter for screening for malignant neoplasm of prostate; I10 Essential (primary) hypertension
CPT/HCPCS: 36415; 80053; 80061; 81003; 82043; 82570; 84153; 84443; 85025

== ENCOUNTER 2024-10-19 12:25 | Outpatient (AMB) | payer MEDICARE, SELFPAY ==
--- NOTE | 2024-10-19 12:51 | A.OFFPC_ITS ---
Vital Signs 10/19/24 12:55 10/19/24 13:15 Height 6 ft 3 in Weight 296 lb BMI 37.0 BP 156/78 H 139/74 Blood Pressure Location Rt brachial Rt brachial Position Sitting Sitting Respiration 13 12 Pulse 83 80 Pulse Source Pulse Oximeter Pulse Oximeter Temp 97.3 F Temp Source Oral Pulse Oximetry (%) 96 97 Oxygen Delivery Method Room Air Room Air Intake Visit Reasons: bilateral cataract surgery /fu htn & labs Intake Note: Pre op for cataract surgery and follow up on htn and labs Distribution Sales Representative Required: No Allergies No Known Allergies Allergy (Mild, Verified 10/19/24 12:52) NKA Medication List - Last Reconciled 10/19/24 by Chase Gomez MD allopurinol 300 mg PO DAILY allopurinol 100 mg PO DAILY amlodipine 10 mg PO DAILY 90 days colchicine 0.3 mg (1/2 x 0.6 mg) PO Q OTHER DAY 90 days fluticasone propionate 50 mcg/actuation 1 spray intranasal BID lidocaine-prilocaine 2.5-2.5 % 1 appl topical .QD lisinopril-hydrochlorothiazide 20-12.5 mg 2 tabs PO DAILY 90 days lorazepam 1 mg PO BEDTIME PRN 30 days metoprolol succinate ER 50 mg (2 x 25 mg) PO DAILY 90 days rosuvastatin 10 mg PO DAILY 90 days spironolactone 25 mg PO DAILY 90 days trazodone 50 mg PO BEDTIME PRN 30 days Tobacco use date assessed: 10/19/24 Fall risk assessment: No Falls in past year Last assessed Fall Risk: 10/19/24 Dental Screening Dental Screen Date: 10/19/24 Did you have a dental visit in the last 12 months?: Yes Did you have a dental problem in the last 6 months where you did not have access to dental care?: No Was dental information given to patient?: Patient has dentist HPI bilateral cataract surgery /fu htn & labs HPI Details Patient presents for preoperative clearance prior to Cartaract surgeries Procedure: Cataract surgery Date:? Right eye 10/31/2024. Left eye 11/14/2024 Surgeon: Dr Herrera Anesthesia: Local Cardiac Hx: None Pulmonary Hx: None Prior Surgical Complications: None Prior Anesthesia Complications: None Coag issues: None Functional Gay: Walking 15 min every day without stopping HPI Comments History of Present Illness Details Documentation assistance for Chase Gomez MD, was provided by Mesfin Ferrari,? Family Services Worker on at 1:42 PM EST. I, Dr. Gomez, have read, observed, and verified documentation. [facility] Medical History (Updated 10/19/24 @ 13:36 by Mesfin Ferrari) Anxiety Gout Hx of sleep apnea Psoriasis Hypertension Kidney stones History of spinal stenosis History of neuropathy Surgical History Hx of basal cell carcinoma excision Hx of lithotripsy History of dental surgery Hx of colonoscopy History of penile implant H/O ligation of vein Previous back surgery Social History Housing: House Alcohol intake: current Alcohol intake frequency: 0-2 drinks per day Patient Tobacco Use Status: Former Tobacco user Tobacco use type: Cigarette e-Cigarette/Vaping Use: Never Used Second Hand Smoke Exposure: No service: Yes Current occupational status: retired Current occupational exposures/hazards: No Cognitive needs: No Hearing needs: No Vision needs: No Questionnaire PHQ-9 Over the last 2 weeks, how often have you been bothered by any of the following problems? 1. Little interest or pleasure in doing things: not at all 2. Feeling down, depressed, or hopeless: not at all 3. Trouble falling or staying asleep, or sleeping too much: not at all 4. Feeling tired or having little energy: not at all 5. Poor appetite or overeating: not at all 6. Feeling bad about yourself - or that you are a failure or have let yourself or your family down: not at all 7. Trouble concentrating on things, such as reading the newspaper or watching television: not at all 8. Moving or speaking so slowly that other people could have noticed. Or the opposite - being so fidgety or restless that you have been moving around a lot more than usual: not at all 9. Thoughts that you would be better off or of hurting yourself in some way: not at all Total score: 0 Depression Screening Interpretation: Negative Depression Screening Done: Yes 88898 - PHQ-9 Billing: Yes Source: Developed by Drs. Frankie Ashford, Corinne B.WPhu Culver and colleagues, with an educational jo from [employer] Thrive Questionnaire Date Thrive assessed: 10/19/24 I am a: Patient What is your living situation today?: I have a steady place to live Within the past 12 months, did the food you bought not last and you didn't have the money to get more?: Never true Within the past 12 months, did you worry whether your food would run out before you got money to buy more?: Never true Do you have trouble paying for medicines?: No Do you have trouble getting transportation to medical appointments?: No Do you have trouble paying your heating and electricity bill?: No Do you have trouble taking care of your child, family member or friend?: No Do you have trouble with day-to-day activities such as bathing, preparing meals, shopping, managing finances, etc.?: No Are you currently unemployed and looking for a job?: No Are you interested in more education?: No Please select the resources that you would like help with: None Currently or been in a relationship where the following occur: No concerns reported THRIVE Score: 0 BLANCO-7 AMB Questionnaire BLANCO-7 Date BLANCO - 7 assessed: 10/19/24 Feeling nervous, anxious, or on edge: 0 = Not at all Not being able to stop or control worryin = Not at all Worrying too much about different things: 0 = Not at all Trouble relaxin = Not at all Being so restless that it is hard to sit still: 0 = Not at all Becoming easily annoyed or irritable: 0 = Not at all Feeling afraid as if something awful might happen: 0 = Not at all Total BLANCO-7 score (0-4 normal; 5-9 mild; 10-14 moderate; 15-21 severe): 0 Source: Developed by Drs. Frankie Ashford, Phu Fan and colleagues, with an educational jo from [employer] BLANCO-7 Assessment Billing BLANCO-7 Assessment Tool: BLANCO-7 Assessment 28680 Review of Systems Const Denies chills, Denies fatigue, Denies fever(s), Denies headache(s) and Denies weakness ENT Denies dizziness and Denies headache(s) Card Denies chest pain, Denies lightheadedness, Denies dyspnea and Denies other (Palpitations) Resp Denies cough, Denies dyspnea, Denies wheezing and Denies other ( shortness of breath) Musc Denies numbness and Denies tingling Neuro Denies dizziness, Denies headache(s), Denies numbness, Denies tingling, Denies paresthesias and Denies weakness Psych Denies anxiety and Denies depression Endo Denies fatigue Aller/Immun Denies wheezing Physical exam (Primary Care) Vital Signs: Last Vital Signs Temp 97.3 F 10/19/24 12:55 Pulse 80 10/19/24 13:15 Resp 12 10/19/24 13:15 BP 139/74 10/19/24 13:15 Pulse Ox 97 10/19/24 13:15 Oxygen Delivery Method Room Air 10/19/24 13:15 BMI result Body Mass Index 37.0 Tobacco/Smoking Status: Tobacco use Status Tobacco use date assessed 10/19/24 10/19/24 12:58 Patient Tobacco Use Status Former Tobacco user 10/19/24 12:51 Tobacco use type Cigarette 10/19/24 12:51 e-Cigarette/Vaping Use Never Used 10/19/24 12:51 PHQ-9: PHQ-9 Score PHQ-9: Total score 0 10/19/24 13:27 Depression Screening Interpretation: Negative Thrive Assessment: Date of Thrive Assessment Date Thrive assessed 10/19/24 10/19/24 12:58 Currently or been in a relationship where the following occur: No concerns reported Const General: no acute distress and well developed Nutritional Appearance: well nourished Orientation/consciousness: patient oriented x3 [facility] Head: Yes normocephalic and Yes atraumatic Eyes General: appearance normal, both eyes and all related structures Pupils: Equal, round and reactive pupils present EOM: EOMs intact bilaterally Resp Effort & Inspection: normal respiratory effort Auscultation: clear to auscultation bilaterally Cardio Rate: regular rate Rhythm: regular rhythm Heart sounds: S1 normal heart sound present, S2 normal heart sound present, no gallops, no murmurs and no rubs Neuro General: patient oriented x3 and gait normal Cranial nerves: Yes Equal, round and reactive pupils present Psych Affect: normal affect Results AMB Hemoglobin A1c AMB Hemoglobin A1c 5.5 % Last Edit by Loyda Sanchez MA on 10/19/24 14:00 Coding Level of Care Code Est Pt Level 4 (70670) Diagnoses Pre-operative clearance Z01.818 Hyperlipidemia E78.5 Low HDL (under 40) E78.6 Pre-diabetes R73.03 Screening for colon cancer Z12.11 Screening for prostate cancer Z12.5 Additional Codes BLANCO-7 Assessment Billing - BLANCO-7 Assessment Tool: BLANCO-7 Assessment 61539 ([id number]) PHQ-9 - 65574 - PHQ-9 Billing: Yes ([id number]) Assessment & Plan Assessment & Plan (1) Pre-operative clearance: Code(s): Z01.818 - Encounter for other preprocedural examination Category: Medical Plan: 69-year-old male presents for preoperative clearance prior to cataract surgeries No history of cardiac disease. He does have hypertension which is controlled. No history of pulmonary disease Cardiac and pulmonary exams today are within normal limits No complications with prior surgeries or anesthesia No clotting disorders bleeding disorders Functional reserve is good Low risk patient for low risk procedure * no contraindications to proceeding with proposed procedure (2) Hyperlipidemia: Code(s): E78.5 - Hyperlipidemia, unspecified Category: Medical Plan: LDL and TC are within normal range on rosuvastatin. Triglycerides have improved and are now within normal range on rosuvastatin HDL is still low and I encouraged increased exercise as tolerated (3) Low HDL (under 40): Code(s): E78.6 - Lipoprotein deficiency Category: Medical Plan: As above (4) Pre-diabetes: Code(s): R73.03 - Prediabetes Category: Medical Plan: A1c has been stable at 5.7% and now has improved to 5.5% Pre diabetes range Continue diet low in sugars and starches (5) Screening for colon cancer: Code(s): Z12.11 - Encounter for screening for malignant neoplasm of colon Category: Medical Plan: Followed by Dr. Magdaleno Q 5 years and Up-to-date (6) Screening for prostate cancer: Code(s): Z12.5 - Encounter for screening for malignant neoplasm of prostate Category: Medical Plan: PSA is within normal range Will continue annual screening Orders: Orders AMB Hemoglobin A1c Today Z13.9 - Encounter for screening, unspecified
[2024-10-19 12:55] VITALS: BP 156/78; PULSE 83; RESP 13; TEMP 36.3; O2SAT 96; BMI 37.0
[2024-10-19 13:15] VITALS: BP 139/74; PULSE 80; RESP 12; O2SAT 97
== END 2024-10-19 15:10 | disposition home or self-care (01) ==
LOC: HO.HMCFM 12:25
PROVIDERS: PCP Family Medicine; Visit Provider Family Medicine
DX: Z01.818 Encounter for other preprocedural examination (principal); E78.5 Hyperlipidemia, unspecified; E78.6 Lipoprotein deficiency; R73.03 Prediabetes; Z12.11 Encounter for screening for malignant neoplasm of colon; Z12.5 Encounter for screening for malignant neoplasm of prostate; Z13.9 Encounter for screening, unspecified

== ENCOUNTER → 2024-10-19 12:25 | Outpatient (BNVA) | payer MEDICARE, SELFPAY | PROVIDERS: PCP Family Medicine; Visit Provider Family Medicine | DX: Z01.818 Encounter for other preprocedural examination (principal); E78.5 Hyperlipidemia, unspecified; E78.6 Lipoprotein deficiency; R73.03 Prediabetes | CPT/HCPCS: 83036; 96127; 99212 ==

== ENCOUNTER 2024-11-09 11:22 | Outpatient (AMB) | payer MEDICARE, SELFPAY ==
--- NOTE | 2024-11-09 11:28 | MHC.PC.OV ---
Vital Signs 11/09/24 11:31 Height 6 ft 3 in Weight 295 lb BMI 36.9 BP 130/72 Blood Pressure Location Rt brachial Position Sitting Respiration 14 Pulse 74 Pulse Source Pulse Oximeter Temp 97 F Temp Source Temporal Artery Scan Pulse Oximetry (%) 96 Oxygen Delivery Method Room Air Intake Visit Reasons: CPE, 15 minutes Intake Note: Jacob presents in the office today for his physical. Allergies No Known Allergies Allergy (Mild, Verified 11/09/24 11:28) NKA Tobacco use date assessed: 11/09/24 Dental Screening Dental Screen Date: 11/09/24 Did you have a dental visit in the last 12 months?: Yes Did you have a dental problem in the last 6 months where you did not have access to dental care?: No Was dental information given to patient?: Patient has dentist HPI CPE, 15 minutes HPI Details 69 y/o male presents for an extended exam. BP today 130/72, 74p. He is on amlodipine 10mg, lisinopril-HCTZ 20-12.5mg, metoprolol 50mg, spironolactone 25mg daily. Walks for exercise. Has been eating well. Sees dermatology once a year for a skin survey. Pt notes hx of rheumatoid arthritis. Requesting refill of allopurinol and colchicine. [facility] Medical History (Updated 11/09/24 @ 12:07 by Mesfin Ferrari) Anxiety Gout Hx of sleep apnea Psoriasis Hypertension Kidney stones History of spinal stenosis History of neuropathy Surgical History Hx of basal cell carcinoma excision Hx of lithotripsy History of dental surgery Hx of colonoscopy History of penile implant H/O ligation of vein Previous back surgery Social History (Updated 11/09/24 @ 11:29 by Clara Polanco CMA) Housing: House Alcohol intake: current Alcohol intake frequency: 0-2 drinks per day Patient Tobacco Use Status: Former Tobacco user Tobacco use type: Cigarette e-Cigarette/Vaping Use: Never Used Second Hand Smoke Exposure: No service: Yes Current occupational status: retired Current occupational exposures/hazards: No Cognitive needs: No Hearing needs: No Vision needs: No Questionnaire Thrive Questionnaire Date Thrive assessed: 10/19/24 I am a: Patient What is your living situation today?: I have a steady place to live Within the past 12 months, did the food you bought not last and you didn't have the money to get more?: Never true Within the past 12 months, did you worry whether your food would run out before you got money to buy more?: Never true Do you have trouble paying for medicines?: No Do you have trouble getting transportation to medical appointments?: No Do you have trouble paying your heating and electricity bill?: No Do you have trouble taking care of your child, family member or friend?: No Do you have trouble with day-to-day activities such as bathing, preparing meals, shopping, managing finances, etc.?: No Are you currently unemployed and looking for a job?: No Are you interested in more education?: No Please select the resources that you would like help with: None Currently or been in a relationship where the following occur: No concerns reported THRIVE Score: 0 BLANCO-7 AMB Questionnaire BLANCO-7 Date BLANCO - 7 assessed: 10/19/24 Source: Developed by Drs. Frankie Ashford, Corinne Oden, Phu Mitchell and colleagues, with an educational jo from [employer]. Review of Systems Const Denies chills, Denies fatigue, Denies fever(s), Denies headache(s) and Denies weakness Eyes Denies change in vision ENT Denies dizziness, Denies headache(s), Denies hearing loss, Denies nasal congestion, Denies sinus pain, Denies sinus pressure and Denies sore throat Card Denies chest pain, Denies lightheadedness, Denies dyspnea and Denies other (palpitations) Resp Denies cough, Denies dyspnea and Denies wheezing GI Denies abdominal pain, Denies melena, Denies hematochezia, Denies change in bowel habits, Denies dyspepsia and Denies nausea Denies hematuria and Denies dysuria Musc Denies abnormal gait, Denies myalgias, Denies arthralgias, Denies numbness and Denies tingling Skin/Breast Denies rash, Denies unusual bruising and Denies wounds Neuro Denies abnormal gait, Denies dizziness, Denies headache(s), Denies memory loss, Denies numbness, Denies Sensory deficit (Neuro), Denies tingling and Denies weakness Psych Denies anxiety, Denies depression and Denies memory loss Endo Denies cold intolerance, Denies fatigue, Denies heat intolerance, Denies polydipsia and Denies polyuria Michael/Lymph Denies easy bleeding and Denies easy bruising Aller/Immun Denies wheezing Physical exam (Primary Care) Vital Signs: Last Vital Signs Temp 97 F 11/09/24 11:31 Pulse 74 11/09/24 11:31 Resp 14 11/09/24 11:31 BP 130/72 11/09/24 11:31 Pulse Ox 96 11/09/24 11:31 Oxygen Delivery Method Room Air 11/09/24 11:31 BMI result Body Mass Index 36.9 Tobacco/Smoking Status: Tobacco use Status Tobacco use date assessed 11/09/24 11/09/24 11:34 Patient Tobacco Use Status Former Tobacco user 11/09/24 11:34 Tobacco use type Cigarette 11/09/24 11:34 e-Cigarette/Vaping Use Never Used 11/09/24 11:34 Thrive Assessment: Date of Thrive Assessment Date Thrive assessed 10/19/24 11/09/24 11:34 Currently or been in a relationship where the following occur: No concerns reported Const General: no acute distress, well developed, alert and awake Nutritional Appearance: well nourished Orientation/consciousness: patient oriented x3 HENMT Head: Yes normocephalic and Yes atraumatic Ears: hearing grossly normal bilaterally and TM's normal bilaterally General nose exam: Normal external nose present and Normal nares present Mouth: Normal oral and palatal mucosa present and moist mucous membranes Teeth and gingiva: dentition normal Throat: Yes posterior oropharynx normal Eyes General: appearance normal, both eyes and all related structures Pupils: Equal, round and reactive pupils present and Pupil accommodation reflex normal EOM: EOMs intact bilaterally Neck Neck: Yes normal visual inspection, Yes no lymphadenopathy and Yes trachea midline Thyroid: Thyroid normal Carotids: no bruits Lymphatic: no lymphadenopathy noted Chest Chest palpation & inspection: normal inspection of the chest Resp Effort & Inspection: normal respiratory effort Auscultation: clear to auscultation bilaterally Cardio Rate: regular rate Rhythm: regular rhythm Heart sounds: S1 normal heart sound present, S2 normal heart sound present, no gallops, no murmurs and no rubs Bruits: no abdominal aortic bruits and no carotid bruits GI Palpation (GI): No Abdominal aortic bruit present, Soft to palpation, nontender, No hepatosplenomegaly present and No Rebound tenderness present Auscultation: normal bowel sounds General: Yes no CVA tenderness Back/Spine/Pelvis Back: no CVA tenderness Cervical Spine: cervical ROM normal and No Cervical spine tenderness Thoracic/Lumbar Spine: thoraco-lumbar ROM normal, No pain with thoraco-lumbar ROM, No thoracic spinal tenderness and No lumbar spinal tenderness Skin Lesions: no lesions Rashes: no rashes Trauma: no lacerations or abrasions Wounds: no wounds Nails: normal Neuro General: patient oriented x3 Cranial nerves: Yes Equal, round and reactive pupils present Cognition (Neuro): normal cognition Gait exam (Neuro): Normal gait present Motor exam (neuro): 5/5 motor strength present throughout Sensory Exam: No Sensory deficit (Neuro) Deep tendon reflexes (DTR's): Right patellar reflex intensity grade: 2+ and Left patellar reflex intensity grade: 2+ Extrem General: Yes normal to inspection and No edema Psych Appearance: grossly normal Affect: normal affect Attitude: cooperative Thought process: Normal thought process present Coding Level of Care Code Est Pt Level 4 (84425) Diagnoses Essential hypertension I10 Rheumatoid arthritis M06.9 Atherosclerosis I70.90 Adult general medical exam Z00.00 Idiopathic chronic gout of multiple sites without tophus M1A.09X0 Chronicity: chronic Gout etiology: idiopathic Gout site: multiple sites Presence of tophus: without tophus Assessment & Plan Assessment & Plan (1) Essential hypertension: Code(s): I10 - Essential (primary) hypertension Category: Medical Plan: Blood pressure is controlled. Goal is less than 140/90 Continue medication (2) Rheumatoid arthritis: Code(s): M06.9 - Rheumatoid arthritis, unspecified Category: Medical Plan: Stable (3) Atherosclerosis: Code(s): I70.90 - Unspecified atherosclerosis Category: Medical Plan: He is on rosuvastatin Taking medication as prescribed (4) Adult general medical exam: Code(s): Z00.00 - Encounter for general adult medical examination without abnormal findings Category: Medical Plan: 69-year-old male presents for an extended exam Encouraged healthy diet with active lifestyle and plenty of exercise (5) Gout: Code(s): M10.9 - Gout, unspecified Category: Medical Qualifiers: Chronicity: chronic Gout etiology: idiopathic Gout site: multiple sites Presence of tophus: without tophus Qualified Code(s): M1A.09X0 - Idiopathic chronic gout, multiple sites, without tophus (tophi) Plan Patient is taking colchicine 0.3 mg (1/2 x 0.6 mg) q.o.d. and allopurinol 400 mg (300 mg +100) mg tablet daily. Last uric acid level showed good control He requests that I continue managing this medication and I do so
[2024-11-09 11:31] VITALS: BP 130/72; PULSE 74; RESP 14; TEMP 36.1; O2SAT 96; BMI 36.9
--- OUTSIDE RECORDS SUMMARY | 2024-11-09 12:32 | XMS_ITS | Patient Health Record ---
Author Organization [facility] Address [address] [place] [address] Care Team Providers Care Able Bodied Seaman Name Role Phone Dena Benson Primary Care Provider Ino Lund Unavailable [phone] Reason For Referral No Information Medications Medication [...] Peripheral neuropathy of bilateral lower limbs (disorder) ([id number] 108) Neuropathy involving both lower extremities (G57.93) Active confirmed Plan Of Treatment Pending Test Test Name Order Date X ray : Foot, left 2V 10/23/2012 X ray : Foot, right 2V 10/23/2012 [id number] SKIN/TISSUE 05/16/2018 Insurance Providers Payer Name Payer Address Payer Phone Subscriber Number Group Number Insured Name Patient Relationship to Insured Coverage Start Date Coverage End Date [facility] All Others [address] [place] [address] [id number] [phone] Jacob Monteiro Self - patient is the insured Medical (General) History Medical History History ICD Code Gout Hypertension Numbness - Neuropathy unkown origin Measles Mumps Chicken pox Surgical History Surgery Date(Month/Year) left foot surgery 2007 colonoscopy 2012 Back 2017 R & L leg 2018
--- OUTSIDE RECORDS SUMMARY | 2024-11-09 12:32 | XMS_ITS | Clinical Summary ---
Author Organization [facility] Address [address] [place] [address] Care Team Providers Care Disability Coordinator Name Role Phone Unavailable Primary Care Provider [...] age to complete this topic JOYCELYN LEBRON [id number]
--- OUTSIDE RECORDS SUMMARY | 2024-11-09 12:32 | XMS_ITS | Patient Health Record ---
Author Organization [facility] Address [address] [place] [address] Care Team Providers Care Managed Care Liaison Name Role Phone Chase Gomez Primary Care Provider Vipul Diamond Jr Unavailable [phone] Allergies No Known Allergies Reason For [...] Problem Status W/U Status Risk Notes Problem [id number] Colon cancer screening (Z12.11) Active confirmed Problem 903388116 Personal history of colonic polyps (Z86.010) Active confirmed Problem 26645632 Encounter for other preprocedural examination (Z01.818) Active confirmed Problem [id number] [facility] current use of diuretic (Z79.899) Active confirmed Plan Of Treatment Future Test Test Name Order Date COLONOSCOPY 09/08/2016 COLONOSCOPY 02/26/2022 Insurance Providers Payer Name Payer Address Payer Phone Subscriber Number Group Number Insured Name Patient Relationship to Insured Coverage Start Date Coverage End Date [facility] [address] [place] [address] [phone] [id number] HITESH MAR Self - patient is the insured Medical (General) History Medical History History ICD Code hypertension RADHA/CPAP gout anxiety Elevated cholesterol Neuropathy Colon polyps, colonoscopy 11/23, serrate d adenoma, five-year followup Surgical History Surgery Date(Month/Year) dental extractions Back surgery x2 Varicose vein stripping ESWL/cystoscopy Penile implant Basal/squamous cell carcinoma excisions
--- OUTSIDE RECORDS SUMMARY | 2024-11-09 12:32 | XMS_ITS | Clinical Summary ---
Author Organization [facility] Address [address] [place] [address] Care Team Providers Care Steward/Stewardess Second Class Name Role Phone Chase Gomez MD Primary Care Provider [phone] Social History Tobacco Use Types Packs/Day Years [...] series) 06/07 Influenza Vaccine (#1) 2024 Insurance [facility] Care Teams Steward/Stewardess Second Class Relationship Specialty Start Date End Date Chase Gomez MD [address] [id number] PCP - General Family Medicine 03/08/22
== END 2024-11-09 12:12 | disposition home or self-care (01) ==
LOC: HO.HMCFM 11:23
PROVIDERS: PCP Family Medicine; Visit Provider Family Medicine
DX: I10 Essential (primary) hypertension (principal); M06.9 Rheumatoid arthritis, unspecified; I70.90 Unspecified atherosclerosis; Z00.00 Encounter for general adult medical examination without abnormal findings; M1A.09X0 Idiopathic chronic gout, multiple sites, without tophus (tophi)

== ENCOUNTER → 2024-11-09 11:22 | Outpatient (BNVA) | payer MEDICARE, SELFPAY | PROVIDERS: PCP Family Medicine; Visit Provider Family Medicine | DX: Z00.00 Encounter for general adult medical examination without abnormal findings (principal); I10 Essential (primary) hypertension; M06.9 Rheumatoid arthritis, unspecified; I70.90 Unspecified atherosclerosis; M1A.09X0 Idiopathic chronic gout, multiple sites, without tophus (tophi) | CPT/HCPCS: 99212 ==

== ENCOUNTER 2025-01-29 15:13 | Outpatient (REF) | payer SELFPAY ==
--- OUTSIDE RECORDS SUMMARY | 2025-01-29 16:29 | XMS_ITS | Patient Health Record ---
Author Organization [facility] Address [address] [place] [address] Care Team Providers Care Field Artillery Operations Man Name Role Phone Chase Gomez Primary Care Provider Vipul Diamond Jr Unavailable Allergies No Known Allergies Reason For Referral No Information Medications Medication SIG (Take, Route, Frequency, Duration) Notes Start Date End Date Status Multivitamin Adult - Tablet 1 tablet Ora lly Once a day; Duration: 30 day(s) Active Fluticasone Propionate 50 MCG/ACT Suspension 1 spray in each nostril Nasally Once a day; Duration: 30 day(s) Active Fish Oil 1200 MG Capsule 2 capsule Orall y Once a day Active Metoprolol Succinate ER 25 MG Tablet Extended Release 24 Hour Oral; Duration: 90 Active amLODIPine Besylate 10 MG Tablet Oral; Duration: 90 Active Spironolactone 25 MG Tablet Oral; Duration: 90 Active Lisinopril-hydroCHLOROthiazi de 20-12.5 MG Tablet Oral; Duration: 90 A ctive LORazepam 1 MG Tablet as directed Orally Twice a day Active Colchicine 0.6 MG Tablet TAKE 1 TABLET B Y MOUTH TWICE DAILY FOR 2 WEEKS, THEN 1 TABLET DAILY Oral; Duration: 76 Active Allopurinol 300 MG Tablet 1 tablet Orall y Once a day Active MiraLax (colon prep) 17 GM/SCOOP Powder mixed with Gatorade or Crystal Light Orally begin at 5:00 p.m. the day before the procedure; Duration: 1 day 02/26/2022 Active Immunizations Vaccine Route Administration Date Status Comme nts Influenza Unknown 10/08/2021 Administered Social History Tobacco Use: Social History Observation Description Date Details (start date - stop date) Former Smoker NA - NA Social History Drugs/Alcohol: Social Info Question Answer Notes Alcohol Screen Did you have a drink containing alcohol in the past year? Yes How often did you have a drink containing alcohol in the past year? 4 or more times a week (4 points) How many drinks did you have on a typical day when you were drinking in the past year? 1 or 2 drinks (0 point) How often did you have 6 or more drinks on one occasion in the past year? Never (0 point) Points 4 Interpretation Positive Tobacco Use: Social Info Question Answer Notes Tobacco Use/Smoking Patient is a former smoker Patient is a former smoker How long has it been since you last smoked? > 10 years How long has it been since you last smoked? > 10 years Additional Details Category Social Info Options Details Miscellaneous: Marital status: Occupation: [employer] ort/ retired Problems Problem Type SNOMED Code ICD Code Onset Dates Problem Status W/U Status Risk Notes Problem Colon cancer screening (015407137) Colon cancer screening (Z12.11) Active confirmed Problem History of polyp of colon (situation) (482816316) Personal history of colonic polyps (Z86.010) Active confirmed Problem Pre-procedure evaluation check (182711454) Encounter for other preprocedural examination (Z01.818) Active confirmed Problem Long-term current use of drug therapy (723349741) long term care social worker current use of diuretic (Z79.899) Active confirmed Plan Of Treatment Future Test Test Name Order Date COLONOSCOPY 09/08/2016 COLONOSCOPY 02/26/2022 Insurance Providers Payer Name Payer Address Payer Phone Subscriber Number Group Number Insured Name Patient Relationship to Insured Coverage Start Date Coverage End Date [facility] [address] [place] [address] [id number] HITESH MAR Self - patient is the insured Medical (General) History Medical History History ICD Code hypertension RADHA/CPAP gout anxiety Elevated cholesterol Neuropathy Colon polyps, colonoscopy 11/23, serrate d adenoma, five-year followup Surgical History Surgery Date(Month/Year) dental extractions Back surgery x2 Varicose vein stripping ESWL/cystoscopy Penile implant Basal/squamous cell carcinoma excisions
--- OUTSIDE RECORDS SUMMARY | 2025-01-29 16:29 | XMS_ITS | Patient Health Record ---
Author Organization [facility] Address [address] [facility] [place] [address] Care Team Providers Care Oracle Analyst Name Role Phone Dena Benson Primary Care Provider Ino Lund Unavailable [phone] Reason For Referral No Information Medications Medication [...] Peripheral neuropathy of bilateral lower limbs (disorder) ([id number] 108) Neuropathy involving both lower extremities (G57.93) Active confirmed Plan Of Treatment Pending Test Test Name Order Date X ray : Foot, left 2V 10/23/2012 X ray : Foot, right 2V 10/23/2012 [id number] SKIN/TISSUE 05/16/2018 Insurance Providers Payer Name Payer Address Payer Phone Subscriber Number Group Number Insured Name Patient Relationship to Insured Coverage Start Date Coverage End Date [facility] All Others [address] [place] [address] [id number] [phone] Jacob Motneiro Self - patient is the insured Medical (General) History Medical History History ICD Code Gout Hypertension Numbness - Neuropathy unkown origin Measles Mumps Chicken pox Surgical History Surgery Date(Month/Year) left foot surgery 2007 colonoscopy 2012 Back 2017 R & L leg 2018
--- OUTSIDE RECORDS SUMMARY | 2025-01-29 16:29 | XMS_ITS | Clinical Summary ---
Author Organization [facility] Prior to 07/07/[address] [place] [address] Care Team Providers Care Dry Kiln Burner Name Role Phone Unavailable Primary Care Provider [...] [id number]
--- OUTSIDE RECORDS SUMMARY | 2025-01-29 16:29 | XMS_ITS | Clinical Summary ---
Author Organization [facility] Address [address] [place] [address] Care Team Providers Care Maintenance Mgr Name Role Phone Chase Gomez MD Primary Care Provider [phone] Social History Tobacco Use Types Packs/Day Years [...] series) 06/07 Influenza Vaccine (#1) 2024 Insurance [facility] Care Teams Maintenance Mgr Relationship Specialty Start Date End Date Chase Gomez MD [address] [phone] PCP - General Family Medicine 03/08/22
== END 2025-01-29 15:14 | disposition home or self-care (01) ==
LOC: HO.HAP 15:13
PROVIDERS: Visit Provider Family Medicine
DX: Z46.1 Encounter for fitting and adjustment of hearing aid (principal); H90.3 Sensorineural hearing loss, bilateral
CPT/HCPCS: V5299